=== PATIENT | female | born 1965 | race Caucasian/White ===

== ENCOUNTER 2022-09-17 08:45 | Emergency (ER) | payer OTHER, SELFPAY ==
--- NOTE | ~2022-09-17 | XR_ITS ---
EXAMINATION: XR chest 2V DATE: 09/17/2022 09:46 INDICATION: 2 days of cough and wheezing TECHNIQUE: PA and lateral views of the chest were obtained. COMPARISON: None FINDINGS: Mild bilateral perihilar bronchial wall thickening. No focal airspace opacities, pulmonary edema, ple ural effusion or pneumothorax. The cardiomediastinal silhouette is normal. Visualized bones and soft tissues are unremarkable. IMPRESSION: 1. Mild bilateral perihilar bronchial wall thickening without focal airspace opacities which could be seen with bronchitis or reactive airway disease/asthma. Reviewed, dictated and finalized at location A. LAINTS COORDINATOR IMPRESSION: 1. Mild bilateral perihilar bronchial wall thickening without focal airspace op acities which could be seen with bronchitis or reactive airway disease/asthma.
[2022-09-17 08:56] VITALS: BP 173/96; PULSE 100; RESP 16; TEMP 36.8; O2SAT 98
--- NOTE | 2022-09-17 09:29 | ED.URI ---
HPI - URI/Sore Throat General Chief Complaint: Upper Respiratory Infection Stated Complaint: Bodyaches/Cough Time Seen by Provider: 09/17/22 09:29 Source: patient, RN notes reviewed and old records reviewed Mode of arrival: ambulatory Limitations: no limitations History of Present Illness HPI Narrative: 57-year-old female presents to the [facility] with complaints of body aches, cough, sinus congestion since yesterday. Has taken a couple of doses of Mucinex. Has a history of hypertension, did not take her medication today Patient is a smoker Onset (ago): day(s) (1) Related Data Home Medications Medication Instructions Recorded Confirmed lisinopril 20 mg tablet 20 mg PO DAILY 09/17/22 09/17/22 Allergies Allergy/AdvReac Type Severity Reaction Status Date / Time amoxicillin Allergy Intermediate Rash Verified 09/17/22 09:42 Penicillins Allergy Intermediate Rash Verified 09/17/22 09:42 Review of Systems Review of Systems: All systems reviewed & are unremarkable except as noted in HPI and below Constitutional: Constitutional: Reports as per HPI, Reports body ache(s), Reports fatigue and Denies fever(s) Eyes: Eyes: Reports no additional eye complaints ENT: Reports as per HPI and Reports nasal congestion Cardiovascular: Cardiovascular: Reports no additional cardiovascular complaints, Denies chest pain and Denies dyspnea Respiratory: Respiratory: Reports as per HPI, Denies chest congestion, Reports cough, Denies dyspnea and Reports wheezing Gastrointestinal: Gastrointestinal: Reports no additional gastrointestinal complaints, Denies abdominal pain, Denies nausea and Denies vomiting Musculoskeletal: Musculoskeletal: Reports no additional musculoskeletal complaints Integumentary/Breasts: Skin/Breast: Reports system reviewed and no additional complaints, except as docu Neurologic: Reports system reviewed and no additional complaints, except as documented Psychiatric: Psychiatric: Reports no additional psychiatric complaints Allergic/Immunologic: Allergic/Immunologic: Reports no additional allergic/immunologic complaints [facility] Past Medical History Medical History (Updated 09/17/22 @ 09:58 by Rosa Betancourt APRN) History of high blood pressure Surgical History Surgical History (Updated 09/17/22 @ 09:41 by Rosa Betancourt APRN) S/P lateral meniscal repair Social History Social History (Updated 09/17/22 @ 09:40 by Rosa Betancourt APRN) Smoking status: Current every day smoker Tobacco type: cigarettes Gender identity (if verbalized by the patient): Female Comments At the time of my signature, I reviewed and agree with the nursing past medical, surgical, social, and family history. There is no relevant family history pertinent to the patient complaint. Exam Const: General: cooperative, no acute distress, well developed, alert, awake, ill appearing acutely (Mild), uncomfortable, well groomed and well nourished Nutritional Appearance: well nourished Orientation/consciousness: patient oriented x3 Limitations: no limitations HENMT: Head: normal to inspection Ears: hearing grossly normal bilaterally and external ears normal Face/Nose/Sinus: Normal external nose present, Normal nares present, Abnormal mucous membranes and turbinates present boggy and erythematous, normal facial exam and face symmetric Face and sinus: normal facial exam Mouth: Yes Normal oral and palatal mucosa present, Yes lip normal and Yes moist mucous membranes Throat: posterior oropharynx normal, uvula midline and postnasal drainage Eyes: General: appearance normal, both eyes and all related structures Alignment and Position: alignment normal Periorbital: periorbital findings normal Conjunctivae: conjunctivae normal Pupils: Equal, round and reactive pupils present EOM: EOMs intact bilaterally Neck: Neck: normal visual inspection, full ROM, no lymphadenopathy and no meningeal signs Chest: Chest palpation & inspection: normal i
== END 2022-09-17 10:06 | disposition home or self-care (01) ==
PROVIDERS: Emergency Provider Nurse Practitioner; PCP Physician Assistant Medical
DX: J40 Bronchitis, not specified as acute or chronic (principal); Z20.822 Contact with and (suspected) exposure to COVID-19; F17.210 Nicotine dependence, cigarettes, uncomplicated; I10 Essential (primary) hypertension
CPT/HCPCS: 71046; 87426; 87804; 99203; C9803; G0463

== ENCOUNTER 2025-08-07 09:56 | Observation (INO) | payer OTHER, SELFPAY ==
[2025-08-07] VITALS (46 sets, daily range): BP systolic 92–121; BP diastolic 64–78; PULSE 67–100; RESP 12–26; TEMP 36.8; O2SAT 94–100; BMI 21.2
--- NOTE | ~2025-08-07 | MR_ITS ---
EXAMINATION: MR brain/brain stem wo con DATE: 08/08/2025 12:17 INDICATION: Seizure. TECHNIQUE: Magnetic resonance imaging (MRI) of the brain and brainstem was performed without intravenous contrast. COMPARISON: Head CT 08/07/2025 FINDINGS: There is chronic encephalomalacia involving the left insula, left basal ganglia, and left frontal lobe deep white matter. There is chronic hematoma involving the left basal ganglia and left insula characterized by increased T1- and T2-weighted signal intensity. There are scattered areas of low attenuation in the cerebral white matter and mira, which is within normal limits for the patient's age. There is no acute ischemic infarct or abnormal mass lesion. There is ex vacuo dilatation of left lateral ventricle. There is mild mucosal thickening in the paranasal sinuses. The orbits are normal. There is a trace left mastoid effusion. IMPRESSION: 1. Chronic encephalomalacia involving the left insula, left basal ganglia, and left frontal lobe deep white matter. Chronic hematoma involving the left basal ganglia and left insula. Reviewed, dictated and finalized at location E.
--- NOTE | ~2025-08-07 | XR_ITS ---
EXAM/PROCEDURE: XR barium swallow modified HISTORY: cvA Fluoroscopy time: 1 minute DAP: 0.62 [place] per square centimeter Number of images: 1 COMPARISON: None available. TECHNIQUE: Modified barium swallow FINDINGS: No aspiration observed. IMPRESSION: No aspiration observed. See also speech therapist's notes for complete details. Reviewed, dictated and finalized at location A. METAL CAR OPERATOR
--- NOTE | ~2025-08-07 | XR_ITS ---
Examination: XR chest 1V Clinical History: Seizure Comparison: 09/17/2022 Technique: Portable AP Findings: Heart size normal. Increased suprahilar markings bilaterally. No focal airspace disease. No acute bony abnormality. IMPRESSION: 1. Recommend CT chest with contrast to exclude perihilar abnormality. 2. No acute abnormality. Reviewed, dictated and finalized at location R. E SETTER
--- NOTE | ~2025-08-07 | CT_ITS ---
EXAMINATION: CT diagnostic chest wo con, 08/07/2025 14:00 PIPE CHANGER HISTORY: perihilar abnormality COMPARISON: No comparisons available. TECHNIQUE: CT scan of the chest was performed without IV contrast. One or more of the following dose reduction techniques were used: automated exposure control, adjustment of the mA and/or kV according to patient size, use of iterative reconstruction technique. FINDINGS: No significant coronary calcification is present ([id number]) LUNGS: No tracheomalacia. No bronchiectasis. Minimal emphysematous changes. Minimal pulmonary fibrotic changes. No honeycombing or areas of bullous formation. No significant apical pleural scarring. There are bibasilar areas of the tibia atelectasis. HEART AND PERICARDIUM: Within normal limits. AORTA: Normal caliber aorta. ADENOPATHY/MEDIASTINUM: None. LIMITED VIEWS OF THE ABDOMEN: Within normal limits. OSSEOUS STRUCTURES: No acute osseous abnormality.No suspicious lesions. OVERLYING SOFT TISSUES: Unremarkable. THYROID: The thyroid is unremarkable. IMPRESSION: Unremarkable exam. There is no hilar mass identified. Reviewed, dictated and finalized at location P. CHANGER
--- NOTE | ~2025-08-07 | US_ITS ---
Ultrasound venous duplex upper extremity, left arm CLINICAL HISTORY: Rule out deep vein thrombosis . Comparison: None. TECHNIQUE: Grayscale, color, duplex/spectral Doppler sonography. FINDINGS: Left upper extremity internal jugular, subclavian, axillary, brachial, basilic, cephalic veins compressible (where possible) and color Doppler patent with normal phasic flow. No internal echoes. IMPRESSION: 1. No left upper extremity DVT. Reviewed, dictated and finalized at location R. H ENGINEER
--- NOTE | ~2025-08-07 | CT_ITS ---
CT HEAD NON-CONTRAST Clinical History: seizure, hemorrhagic stroke 07/10 Comparison: None Technique: Unenhanced axial images skull base to vertex Coronal, sagittal reformats CT images acquired with automatic exposure control for dose reduction DLP: 605 mGy-cm Findings: Prominent chronic infarct left centrum semiovale and zhu radiata. Mild white matter changes, typically chronic microvascular ischemic disease Sulci, ventricles: Unremarkable. No intracerebral hemorrhage. No evidence acute territorial infarct. No mass effect, midline shift. Bony calvarium intact. Visualized paranasal sinuses: Clear. Mastoid air cells: Clear. IMPRESSION: 1. No acute intracranial findings. Reviewed, dictated and finalized at location R. ON FACING MACHINE OPERATOR
--- NOTE | 2025-08-07 10:19 | ECG_ITS ---
Test Date: 2025-08-07 10:38:39 Measurements Intervals [place] Rate: 88 P: 50 PA: 142 QRS: 50 QRSD: 84 T: 48 QT: 339 QTc: 410 Interpretive Statements SINUS RHYTHM No previous ECG available for comparison Electronically Signed On 08-07-2025 10:56:03 [employer] by Asa Hernandez D.O
--- NOTE | 2025-08-07 10:19 | ED.SEIZURE ---
HPI - Seizure General Chief Complaint: Seizure Stated Complaint: seizure Time Seen by Provider: 08/07/25 10:19 Source: patient History of Present Illness HPI Narrative: 60 years old white female came from [facility] with seizure-like activity. History of hemorrhagic stroke 2 weeks ago, left upper extremity deep vein thrombosis. Patient denies any fever, chills, nausea, vomiting, diarrhea, constipation, chest pain or shortness of breath. Related Data Home Medications ?Medication ?Instructions ?Recorded ?Confirmed ?Last Taken ?Type lisinopril 20 mg tablet 20 mg PO DAILY 09/17/22 07/26/25 Unknown History amlodipine 10 mg tablet 10 mg PO DAILY 07/26/25 07/26/25 Unknown History armodafinil 150 mg tablet 150 mg PO DAILY 07/26/25 07/26/25 Unknown History doxazosin 1 mg tablet (Cardura) 0.5 mg PO HS 07/26/25 07/26/25 Unknown History folic acid 1 mg tablet 1 mg PO DAILY 07/26/25 07/26/25 Unknown History hydralazine 100 mg tablet 100 mg PO Q8H 07/26/25 07/26/25 Unknown History metoprolol tartrate 100 mg tablet 100 mg PO BID 07/26/25 07/26/25 Unknown History nicotine 14 mg/24 hr daily 1 patch transdermal DAILY 07/26/25 07/26/25 Unknown History transdermal patch (Nicoderm CQ) nitrofurantoin 100 mg capsule 100 mg PO BID 07/26/25 07/26/25 Unknown History tamsulosin 0.4 mg capsule (Flomax) 0.4 mg PO DAILY 07/26/25 07/26/25 Unknown History Allergies Allergy/AdvReac Type Severity Reaction Status Date / Time amoxicillin Allergy Intermediate Rash Verified 07/26/25 20:14 Penicillins Allergy Intermediate Rash Verified 07/26/25 20:14 Review of Systems Review of Systems: All systems reviewed & are unremarkable except as noted in HPI and below PMFSH Past Medical History Medical History Smoker History of high blood pressure Surgical History Surgical History S/P lateral meniscal repair Social History Social History Smoking status: Current every day smoker Tobacco type: cigarettes Additional smoking assessment comments: been smoking since the age of 11 Lack of Transportation: No Lack of Food: Never True Current Housing: I Have Housing Concerned About Future Housing: No Difficulty Paying Gas/Electric Bills: No Difficulty Paying for Meds: No Currently Unemployed: No Education: High School Diploma/GED Difficulty w/ Childcare or Family Care: No Gender identity (if verbalized by the patient): Female Spiritual care concerns: No Exam Narrative: General appearance: Well-developed, well-nourished Skin: Normal color Head: Normocephalic, nontraumatic Eyes: Clear conjunctiva ENT: Oropharynx normal, ears normal, nose normal Neck: Supple, nontender Chest and respiratory: Airway patent, no respiratory distress, no accessory muscle use Heart: Regular rate/rhythm Abdomen: Soft, nontender, no organomegaly, quiet bowel sounds Vascular: Normal peripheral pulses, normal capillary refill. Musculoskeletal: Normal range of motion, nontender back Neurologic: Alert and oriented to her name and the name of the present only, right hemiplegia Course Vital Signs Vital signs: Vital Signs Pulse Rate 96 08/07/25 09:54 Respiratory Rate 16 08/07/25 09:54 Blood Pressure 109/70 08/07/25 09:54 Pulse Oximetry 99 08/07/25 09:54 Oxygen Delivery Room Air 08/07/25 09:54 Pulse Rate 94 08/07/25 13:16 Respiratory Rate 20 08/07/25 13:16 Blood Pressure 104/65 08/07/25 13:16 Pulse Oximetry 97 08/07/25 13:16 Oxygen Delivery Room Air 08/07/25 09:54 MDM - Seizure MDM Narrative Medical decision making narrative: Patient presents with seizure-like activity Vital signs are stable Physical examination showing is the patient awake, alert oriented to her name and the name of the president only otherwise confused, right hemiplegia. Differential diagnosis: Seizure, stroke, electrolyte imbalance, dehydration, urinary tract infection Blood workup today includes CBC, CMP, troponin and coags showed insignificant abnormality Urinalysis positive for infection Diagnosis seizure-like activity, urinary tract infection Admit to hospitalist, discussed with Dr. Bonilla Differential Diagnosis Differential diagnosis: Likely other (As above) Medical Records Attestation: I reviewed the patient's medical records. Lab Data Attestation: I reviewed the patient's lab results. 08/07/25 10:55 08/07/25 10:55 Labs: Lab Results 08/07/25 Range/Units 10:55 WBC 6.5 (4.5-10.0) K/mm3 RBC 3.74 L (4.2-5.4) M/mm3 Hgb 11.8 L (12.0-15.0) g/dL Hct 35.5 L (37.0-47.0) % MCV 94.9 (80-100) fl MCH 31.6 (26-34) pg MCHC 33.2 (32-36) g/dl RDW 12.8 (11.5-14.5) % Plt Count 184 (150-375) k/mm3 MPV 9.3 (7.4-10.4) fl Immature Gran % (Auto) 0.3 (0-0.5) % Neut % (Auto) 61.8 (45.5-73.1) % Lymph % (Auto) 22.2 (18.3-44.2) % Terry % (Auto) 10.5 H (2.6-8.5) % Eos % (Auto) 4.6 H (0-4.4) % Baso % (Auto) 0.6 (0.2-1.2) % Lymph # (Auto) 1.44 (0.9-3.2) K/mm3 Terry # (Auto) 0.7 H (0.1-0.6) K/mm3 Eos # (Auto) 0.3 (0-0.3) K/mm3 Baso # (Auto) 0.0 (0.0-0.1) K/mm3 Abs Immat Gran (auto) 0.02 (0.00-0.031) K/mm3 Absolute Neuts (auto) 4.0 (1.3-6.7) K/mm3 Absolute Nucleated RBC 0.000 (0.0-0.012) K/mm3 Nucleated RBC % 0.0 (0.0-0.2) % PT 13.2 (11.1-14.7) Seconds INR 1.0 APTT 27.7 (22.3-36.8) Seconds Sodium 134 L (137-145) mmol/L Potassium 3.9 (3.4-5.0) mmol/L Chloride 102 (98-107) mmol/L Carbon Dioxide 27 (22-30) mmol/L Anion Gap 5 (4-12) mmol/L BUN 11 (7-17) mg/dL Creatinine 0.48 L (0.7-1.0) mg/dL Estim Creat Clear Calc 94 ml/min Estimated GFR > 60 (59 - ) Glucose 78 (65-110) mg/dL Calcium 8.6 (8.4-10.2) mg/dL Total Bilirubin 0.2 (0.2-1.3) mg/dL AST 33 (14-36) U/L ALT 35 (6-35) U/L Alkaline Phosphatase 123 (38-126) U/L Total Creatine Kinase < 20 L (30-135) U/L Total Protein 5.9 L (6.3-8.2) g/dL Albumin 3.3 L (3.5-5.1) g/dL Urine Color Yellow (Yellow) Urine Appearance Turbid H (Clear) Urine pH 8.0 (5.0-9.0) Ur Specific [place] 1.012 (1.001-1.035) Urine Protein Negative (Negative) mg/dL Urine Glucose (UA) Negative (Negative) mg/dL Urine Ketones Negative (Negative) mg/dL Ur Blood (Man) Negative (Negative) Urine Nitrate Positive H (Negative) Urine Bilirubin Negative (Negative) Urine Urobilinogen 0.2 (<2.0) mg/dL Add Ur Microanalysis Reviewed Leukocyte Esterase Rfl 2+ H (Negative) SAMANTHA/UL Urine RBC 11-20 H (0-2) /hpf Urine WBC 11-20 H (0-3) /hpf Ur Squamous Epith Cells None seen (Few) /hpf Amorphous Sediment Moderate H (None) Urine Bacteria 3+ H /hpf Urine Casts 0-2 Imaging Data Radiologist's impression: Impressions Head CT 08/07/25 10:29 IMPRESSION: 1. No acute intracranial findings. Chest X-Ray 08/07/25 10:33 IMPRESSION: 1. Recommend CT chest with contrast to exclude perihilar abnormality. 2. No acute abnormality. Venous Doppler Study 08/07/25 12:18 IMPRESSION: 1. No left upper extremity DVT. ECG Data EKG #1: Attestation: I personally reviewed and interpreted this ECG as follows: ECG completion date: 08/07/25 Interpretation: Normal sinus rhythm at 88 beats per minute, no previous EKG available for comparison Critical Care Time Critical Care Time Critical Care Time: No Discharge Plan Discharge Clinical Impression: Seizure, Urinary tract infection Patient Disposition: Still a Patient Condition: Improved Additional Instructions: Admit to hospitalist Patient Language: Croatian Prescriptions: No Action lisinopril 20 mg tablet 20 mg PO DAILY prednisone 20 mg tablet See Rx Instructions .ROUTE .COMPLEX Qty: 9 0RF Rx Instructions: Take 40 mg daily for 3 days, 20 mg daily for 3 days doxycycline monohydrate 100 mg capsule 100 mg PO BID Qty: 14 0RF albuterol sulfate 90 mcg/actuation HFA aerosol inhaler 2 puff inhalation QID PRN (Reason: shortness of breath or wheezing) Qty: 6.7 0RF (DME) Space Chamber Spacer See Rx Instructions .ROUTE .MEDSUPPLY Qty: 1 0RF Rx Instructions: As directed nicotine [Nicoderm CQ] 14 mg/24 hr patch 24 hour 1 patch transdermal DAILY Patient Comments: pt has one on already tamsulosin [Flomax] 0.4 mg capsule 0.4 mg PO DAILY amlodipine 10 mg tablet 10 mg PO DAILY doxazosin [Cardura] 1 mg tablet 0.5 mg PO HS hydralazine 100 mg tablet 100 mg PO Q8H metoprolol tartrate 100 mg tablet 100 mg PO BID armodafinil 150 mg tablet 150 mg PO DAILY folic acid 1 mg tablet 1 mg PO DAILY nitrofurantoin 100 mg capsule 100 mg PO BID Rx Instructions: must administer with a meal/food Follow-up/Referrals: PHYSICIAN NOT ON STAFF,NONSTAFF [Non-Staff] Quality Stroke Scale Stroke Scale 1: Stroke scale date:: 08/07/25 1a Level of consciousness: alert-0 1b Level of consciousness questions: answers one correctly-1 1c Level of consciousness commands: obeys both correctly-0 2 Best gaze: normal-0 3 Visual: no visual loss-0 4 Facial palsy: normal-0 5a Motor: left arm: no drift-0 5b Motor: right arm: drift-1 6a Motor: left leg: no drift-0 6b Motor: right leg: drift-1 7 Limb ataxia: present in one limb-1 8 Sensory: normal-0 9 Best language: no aphasia-0 10 Dysarthria: slurs some words-1 11 Extinction and inattention: no abnormality-0 Level:: 5
[2025-08-07] MEDS: levETIRAcetam 1000MG/NACL100ML 1,000 MG/100 ML BAG 400 MG IVPB (10:40)
[2025-08-07 11:05] LABS: Hematocrit 35.5 % (37.0-47.0); Hemoglobin 11.8 g/dL (12.0-15.0); Immature Granulocyte Percent A 0.3 % (0-0.5); Lymphocytes Absolute Auto 1.44 K/mm3 (0.9-3.2); Mean Corpuscular HGB Conc 33.2 g/dl (32-36); Mean Corpuscular Hemoglobin 31.6 pg (26-34); Mean Corpuscular Volume 94.9 fl (80-100); Nucleated Red Blood Cells Absolute Auto 0.000 K/mm3 (0.0-0.012); Nucleated Red Blood Cells Perc 0.0 % (0.0-0.2); Platelet Count Result 184 k/mm3 (150-375); Red Blood Count 3.74 M/mm3 (4.2-5.4); White Blood Count 6.5 K/mm3 (4.5-10.0)
[2025-08-07 11:15] LABS: INR 1.0; Prothrombin Time 13.2 Seconds (11.1-14.7)
[2025-08-07 11:16] LABS: Partial Thromboplastin Time 27.7 Seconds (22.3-36.8)
[2025-08-07 11:24] LABS: Alanine Aminotransferase 35 U/L (6-35); Albumin Level 3.3 g/dL (3.5-5.1); Alkaline Phosphatase 123 U/L (38-126); Anion Gap 5 mmol/L (4-12); Aspartate Amino Transferase 33 U/L (14-36); Bilirubin,Total 0.2 mg/dL (0.2-1.3); Blood Urea Nitrogen 11 mg/dL (7-17); Calcium 8.6 mg/dL (8.4-10.2); Carbon Dioxide 27 mmol/L (22-30); Chloride 102 mmol/L (98-107); Creatine Kinase < 20 U/L (30-135); Estimated CRCL calculation 94 ml/min; Estimated Glomerular Filt Rate > 60; Glucose 78 mg/dL (65-110); Potassium 3.9 mmol/L (3.4-5.0); Sodium 134 mmol/L (137-145); Total Protein 5.9 g/dL (6.3-8.2)
[2025-08-07 11:27] LABS: Add Urine Microscopic? YES; Appearance Urine Turbid (Clear); Glucose Urine UA Negative (Negative); Leukocyte Esterase Ur 2+ LEU/UL (Negative); Need Manual Microscopic Reviewed; Nitrate Urine Positive (Negative); Non Pathogenic Casts 0-2; Specific Grav Ur 1.012 (1.001-1.035)
--- NOTE | 2025-08-07 12:00 | PC.NURSE ---
Pt more awake than on arrival to ed. c/o pain to left leg. No deformity noted. PMS intact.
--- NOTE | 2025-08-07 13:50 | P.HP_ITS ---
H&P: HPI History of Present Illness Date/Time: 08/07/25 13:50 Chief Complaint: Seizure Narrative: 60-year-old female past medical history of a hemorrhagic stroke 1 month ago, hypertension, presents to the hospital for seizure like activity at inpatient rehab. Per the patient the she does not have increased weakness or stroke-like symptoms. HPI given by family at bedside. Patient had extremely prolonged hosp ital stay due to her hemorrhagic stroke. They state that they believe she was not in Keppra after her stroke. Per the he was at bedside when she started to shake, she did not respond to verbal or tactile stimuli so pressed the call light. A rapid response was called. Per the she was in the bed the whole time and did not fall or hit her head. Patient has had issues with short-term memory since the stroke per family. Lab work shows hemoglobin 11.8, sodium of 134, creatinine of 0.48, glucose of 144, UA is turbid with positive nitrates 2+ leukocyte esterase 11-20 wbc's 3+ ba cteria. Venous Doppler of left upper extremity negative for DVT. Chest x-ray shows no acute findings however Recommend CT chest with contrast to exclude perihilar abnormality. Patient being admitted for seizure workup. CT brain and chest pending. Patient given Keppra load in the emergency room and started on Rocephin. Review of Systems Review of Systems: 12 systems were reviewed and are negativ e except for as per HPI. [facility] Past Medical History Medical History Smoker History of high blood pressure Surgical History Surgical History S/P lateral meniscal repair Social History Social History Smoking packs per day: 1 Smoking cigarettes per day: 20.0 Years smoked: 34 Smoking pack-years: 34.00 Smoking status: Current every day smoker Tobacco type: cigarettes Additional smoking assessment comments: been smoking since the age of 11 Alcohol intake: current Drinks per week: 15 Substance use: never Lack of Transportation: No Lack of Food: Never True Current Housing: I Have Housing Concerned About Future Housing: No Difficulty Paying Gas/Electric Bills: No Difficulty Paying for Meds: No Currently Unemployed: No Education: High School Diploma/GED Difficulty w/ Childcare or Family Care: No Gender identity (if verbalized by the patient): Female Spiritual care concerns: Yes ([place]) Meds Home Medications and Allergies Home Medications ?Medication ?Instructions ?Recorded ?Confirmed ?Type amlodipine 10 mg tablet 10 mg PO DAILY 07/26/2507/24 History Held on 08/07/25. Instructions: .Provider Order folic acid 1 mg tablet 1 mg PO DAILY 07/26/2508/07 History metoprolol tartrate 100 mg tablet 50 mg PO BID 5 08/07/25 History nicotine 14 mg/24 hr daily 1 patch transdermal DAILY 1 09/25/24 08/07/25 History transdermal patch (Nicoderm CQ) tamsulosin 0.4 mg capsule (Flomax) 0.4 mg PO DAILY 12/1508/07/25 History Bacillus coagulans 250 million 1 tablet PO QHS 5 08/07/25 History cell chewable tablet (Digestive Advantage Immune) acetaminophen 325 mg/10.15 mL oral 325 mg PO Q6H PRN p ain, mild 08/07/25 08/07/25 History solution bethanechol chloride 10 mg tablet 10 mg PO ACHS 08/07/25 History docusate sodium 100 mg capsule 100 mg PO BID 08/07/25 08/07/25 History folic acid 1 mg tablet 1 mg PO DAILY 08/07/2508/07 History gabapentin 100 mg capsule 100 mg PO TID 08/07/2508/07 History hydrocortisone 1 % topical cream 1 applic topical BID 08/07/25 08/07/25 History (Ala-N[place]um) melatonin 3 mg capsule 3 mg PO HS 08/07/25 08/07/25 History midodrine 5 mg tablet 5 mg PO TID 08/07/25 History modafinil 200 mg tablet 200 mg PO QAM 08/07/2508/07 History psyllium husk 0.52 gram capsule 1.04 g PO HS 08/07/25 08/07/25 History (Daily Fiber) Allergies Allergy/AdvReac Type Severity Reaction Status Date / Time amoxicillin Allergy Intermediate Rash Verified 08/07/25 16:27 Penicillins Allergy Intermediate Rash Verified 08/07/25 16:27 Vital Signs Vital Signs - 24 hr 08/07/25 09:54 08/07/25 10:01 08/07/25 10:02 Pulse Rate 96 99 96 Respiratory Rate 16 17 18 Blood Pressure 109/70 117/67 Pulse Oximetry 99 98 99 Oxygen Delivery Room Air 08/07/25 10:03 08/07/25 10:15 08/07/25 10:16 Pulse Rate 97 98 99 Respiratory Rate 19 16 19 Blood Pressure 109/70 110/69 Pulse Oximetry 98 Oxygen Delivery 08/07/25 10:32 08/07/25 10:45 08/07/25 11:00 Pulse Rate 90 94 96 Respiratory Rate 21 H 19 23 H Blood Pressure Pulse Oximetry 96 Oxygen Delivery 08/07/25 11:15 08/07/25 11:30 08/07/25 11:43 Pulse Rate 90 91 92 Respiratory Rate 19 24 H 14 Blood Pressure 121/64 Pulse Oximetry 97 98 99 Oxygen Delivery 08/07/25 11:45 08/07/25 11:46 08/07/25 12:00 Pulse Rate 97 94 93 Respiratory Rate 22 H 14 17 Blood Pressure 110/66 105/65 Pulse Oximetry 95 97 95 Oxygen Delivery 08/07/25 12:01 08/07/25 12:15 08/07/25 12:16 Pulse Rate 93 90 97 Respiratory Rate 19 18 18 Blood Pressure 113/67 Pulse Oximetry 97 97 98 Oxygen Delivery 08/07/25 12:30 08/07/25 12:31 08/07/25 12:32 Pulse Rate 95 94 96 Respiratory Rate 15 14 18 Blood Pressure 105/72 Pulse Oximetry 94 97 97 Oxygen Delivery 08/07/25 12:45 08/07/25 12:47 08/07/25 13:00 Pulse Rate 100 93 95 Respiratory Rate 20 12 18 Blood Pressure 92/66 L Pulse Oximetry 95 97 95 Oxygen Delivery 08/07/25 13:01 08/07/25 13:11 08/07/25 13:15 Pulse Rate 96 97 94 Respiratory Rate 17 18 18 Blood Pressure 103/64 Pulse Oximetry 96 97 96 Oxygen Delivery 08/07/25 13:16 Pulse Rate 94 Respiratory Rate 20 Blood Pressure 104/65 Pulse Oximetry 97 Oxygen Delivery Exam Narrative: General: well appearing, appears stated age. Expressive aphasia. HEENT: normocephalic, atraumatic. Mucous membranes moist. EOMI, PERRLA, bilateral sclera anicteric, no conjunctival injection. Neck supple without JVD, lymphadenopathy, or bruit. Respiratory: clear bilaterally. No rales/rhonic/wheezes. Cardiovascular: Regular rate and rhythm, normal S1-S2. No murmurs, rubs, or clicks. PMI is nondisplaced, capillary refill less than 3 second. Abdomen: Soft, round, no pulsatile masses, nondistended and nontender. No rebound, no guarding. Bowel sounds present to all four quadrants. No high pitch or tinkling sounds, resonant to percussion. Extremities: No cyanosis, clubbing, or edema present. Pulses are palpable 2/2. Right upper extremity with gross movement of hand, partial resistant against gravity, left upper extremity strong, right lower extremity with drift, left lower extremity strong Neuro: Alert and orientated x 4. PERRLA. Cranial nerves 2-12 intact without focal deficit. Skin: Warm, dry, and intact, without rash, erythema, or lesion. Psych: pleasant, cooperative, normal speech, normal affect, no hallucinations, no dysarthia H&P: Results Labs Labs: Short CBC 08/07/25 Range/Units 10:55 WBC 6.5 (4.5-10.0) K/mm3 Hgb 11.8 L (12.0-15.0) g/dL Hct 35.5 L (37.0-47.0) % Plt Count 184 (150-375) k/mm3 BMP 08/07/25 10:55 Sodium 134 L Potassium 3.9 Chloride 102 Carbon Dioxide 27 BUN 11 Creatinine 0.48 L Glucose 78 Calcium 8.6 Cardiac Enzymes 08/07/25 Range/Units 10:55 Total Creatine Kinase < 20 L (30-135) U/L Liver Function 08/07/25 Range/Units 10:55 Total Bilirubin 0.2 (0.2-1.3) mg/dL AST 33 (14-36) U/L ALT 35 (6-35) U/L Alkaline Phosphatase 123 (38-126) U/L Albumin 3.3 L (3.5-5.1) g/dL Urine 08/07/25 Range/Units 10:55 Urine Color Yellow (Yellow) Urine Appearance Turbid H (Clear) Urine pH 8.0 (5.0-9.0) Ur Specific [place] 1.012 (1.001-1.035) Urine Protein Negative (Negative) mg/dL Urine Glucose (UA) Negative (Negative) mg/dL Assessment and Plan Assessment and plan (1) Seizure: Code(s): R56.9 - Unspecified convulsions Status: Acute Assessment and Plan: Patient did have a hemorrhagic stroke 3 weeks ago and is currently in rehab Neurology consulted Saul valdovinos in ED Saul [place] CT head pleuritic stroke resolved, Prominent chronic infarct left centrum semiovale and zhu radiata Valium p.r.n. for seizure activity Seizure precautions (2) UTI (urinary tract infection): Code(s): N39.0 - Urinary tract infection, site not specified Status: Acute Assessment and Plan: IV Rocephin Culture and sensitivity pending IVF (3) Urinary retention: Code(s): R33.9 - Retention of urine, unspecified Status: Acute Assessment and Plan: Patient has not been able to void since her stroke has had several Almaguer's Will start bladder training q.6 bladder scan and straight cath over 450 Flomax (4) ICH (intracerebral hemorrhage): Code(s): I61.9 - Nontraumatic intracerebral hemorrhage, unspecified Status: Acute Assessment and Plan: [address] had hemorrhagic stroke resolved PT OT evaluate and treat Speech therapy (5) HTN (hypertension): Code(s): I10 - Essential (primary) hypertension Status: Acute Assessment and Plan: Patient has been taken off of her hypertensive medications since her stroke and now is on midodrine Continue midodrine (6) DVT of left axillary vein, chronic: Code(s): I82.A22 - Chronic embolism and thrombosis of left axillary vein Status: Acute Assessment and Plan: 3 weeks ago Venous Doppler ultrasound negative for DVT (7) Chest x-ray abnormality: Code(s): R93.89 - Abnormal findings on diagnostic imaging of other specified body structures Status: Acute Assessment and Plan: perihilar abnormality Chest CT with no perihilar abnormality Quality VTE Prophylaxis VTE prophylaxis: mechanical ordered and pharmacologic ordered Hospitalist MIPS Advance Care Plan I have confirmed that the patient's Advanced Care Plan is present, code status is documented, or surrogate decision maker is listed in patient medical record.: Yes Medication Reconciliation I have utilized all available resources to obtain, update and review the patients current medications (includes all prescriptions, OTC, herbals, cannabis, and nutritional supplements).: Yes
[2025-08-07] MEDS: cefTRIAXone 1 GM in SODIUM CHLORIDE 0.9% IV 50 ML 100 ML IVPB (13:51)
--- NOTE | 2025-08-07 15:06 | WPCEDHO ---
ED Hand Off Checklist All vitals saved:y IV Site documented:y All med administrations documented:y Triage Note Triage Note To ed via ems from [facility] 08/07/25 09:54 with seizure. Pt is at rehab for a CVA from 07/10. reported to ems that pt leaned her head back and then had shaking to head and arms. Right sided paralyzed from stroke. No previous hx of seizure. Is supposed to have follow up with neurology in [place]. Pt is aphasic. Allergies amoxicillin Allergy (Intermediate, Verified 07/26/25 20:14) Rash Penicillins Allergy (Intermediate, Verified 07/26/25 20:14) Rash Administered/Completed Medications Discontinued Medications Levetiracetam (Keppra Iv) 1,000 mg in 100 mls @ 400 mls/hr IVPB ONCE STA Stop: 08/07/25 10:33 Last Infusion: 08/07/25 11:20 Dose: Infused Documented By: Admin: 08/07/25 10:40 Dose: 400 mls/hr Documented By: LEV Ceftriaxone Sodium 1 gm/ (Sodium Chloride) 50 mls @ 100 mls/hr IVPB ONCE STA Stop: 08/07/25 13:52 Last Infusion: 08/07/25 14:20 Dose: Infused Documented By: Admin: 08/07/25 13:51 Dose: 100 mls/hr Documented By: LEV Notes 08/07/25 12:00 (created 08/07/25 12:34) Nurse Note by Anusha Hernandez Pt more awake than on arrival to ed. c/o pain to left leg. No deformity noted. PMS intact. Initialized on 08/07/25 12:34 - END OF NOTE Interventions/Assessments IV / Saline Lock, Insert Start: 08/07/25 09:50 Freq: Status: Active Protocol: Document 08/07/25 10:07 LEV (Rec: 08/07/25 10:08 LEV [id number]) IV Assessment Peripheral Access Left Wrist IV Catheter Access Initiated Before Arrival IV Insertion Date 08/07/25 IV Insertion Time 10:08 Catheter Gauge 20 IV Site Assessment WNL IV Care and WNL Maintenance PA: Neurological Assessment Start: 08/07/25 09:50 Freq: Status: Active Protocol: Document 08/07/25 11:51 LEV (Rec: 08/07/25 11:51 LEV [id number]) Neurological Assessment Level of Awake Consciousness Arousable to Verbal Orientation Oriented to Person,Oriented to Place Neurological Dysphasia,Weakness, Focal Symptoms Hallucination Type None Behavior Flat Affect Memory Description Unable to Assess Ability to Maintain Unable to Assess Balance PA: Respiratory Assessment Start: 08/07/25 09:50 Freq: Status: Active Protocol: Document 08/07/25 11:38 LEV (Rec: 08/07/25 11:38 LEV [id number]) Respiratory Assessment Symptoms None Effort Normal Pattern Regular Depth Normal Chest Expansion Symmetrical Adult Capillary Normal/Less than 2 Seconds Refill Throughout Phase Inspiratory & Expiratory Lung Sounds Clear Last Vital Signs Pulse Rate 97 08/07/25 14:46 Respiratory Rate 15 08/07/25 14:46 Pulse Oximetry 97 08/07/25 14:46 Blood Pressure 104/67 08/07/25 14:46 Blood Pressure Mean 80 08/07/25 14:46 Blood Pressure Position Supine 08/07/25 09:54 Oxygen Delivery Room Air 08/07/25 09:54 Weight 61.9 kg 08/07/25 09:54 Last Result - Abnormals Only RBC 3.74 M/mm3 (4.2-5.4) L 08/07/25 10:55 Hgb 11.8 g/dL (12.0-15.0) L 08/07/25 10:55 Hct 35.5 % (37.0-47.0) L 08/07/25 10:55 [place] % (Auto) 10.5 % (2.6-8.5) H 08/07/25 10:55 Eos % (Auto) 4.6 % (0-4.4) H 08/07/25 10:55 [place] # (Auto) 0.7 K/mm3 (0.1-0.6) H 08/07/25 10:55 Sodium 134 mmol/L (137-145) L 08/07/25 10:55 Creatinine 0.48 mg/dL (0.7-1.0) L 08/07/25 10:55 Total Creatine Kinase < 20 U/L (30-135) L 08/07/25 10:55 Total Protein 5.9 g/dL (6.3-8.2) L 08/07/25 10:55 Albumin 3.3 g/dL (3.5-5.1) L 08/07/25 10:55 Urine Appearance Turbid (Clear) H 08/07/25 10:55 Urine Nitrate Positive (Negative) H 08/07/25 10:55 Leukocyte Esterase Rfl 2+ SAMANTHA/UL (Negative) H 08/07/25 10:55 Urine RBC 11-20 /hpf (0-2) H 08/07/25 10:55 Urine WBC 11-20 /hpf (0-3) H 08/07/25 10:55 Amorphous Sediment Moderate (None) H 08/07/25 10:55 Urine Bacteria 3+ /hpf H 08/07/25 10:55
[2025-08-07] MEDS: SODIUM CHLORIDE 0.9% IV 1,000 ML 100 ML IV CONT (16:07)
--- NOTE | 2025-08-07 16:26 | ADMGEN ---
This patient, Kerry Jimenez, was admitted to Medical Room 243-01. Patient/family oriented to hospital policies and general routines including ID bracelet, bed and alarms, visiting hours, pain management, procedures, bathroom and other care routines, personal items, smoking policy, room service/diet, and visiting hours. Information on how to activate the Rapid Response Team has been discussed. Patient/Family are encouraged to report perceived risks to care and to ask questions if they do not understand what they are told or what they should do.
[2025-08-07] MEDS: BETHANECHOL CHLORIDE 10 MG TABLET PO (21:38)
[2025-08-07] MEDS: MELATONIN 3 MG TABLET PO (21:38)
[2025-08-07] MEDS: SENNOSIDES 8.6 MG TABLET PO (21:39)
[2025-08-07] MEDS: METOPROLOL TARTRATE 50 MG TAB PO (21:39)
[2025-08-08] VITALS (10 sets, daily range): BP systolic 117–127; BP diastolic 64–82; PULSE 76–90; RESP 17–18; TEMP 36.4–36.8; O2SAT 98–100
[2025-08-08] MEDS: SODIUM CHLORIDE 0.9% IV 1,000 ML 100 ML IV CONT ×2 (02:07→16:20)
[2025-08-08 05:29] LABS: Hematocrit 35.4 % (37.0-47.0); Hemoglobin 11.9 g/dL (12.0-15.0); Immature Granulocyte Percent A 0.3 % (0-0.5); Lymphocytes Absolute Auto 1.42 K/mm3 (0.9-3.2); Mean Corpuscular HGB Conc 33.6 g/dl (32-36); Mean Corpuscular Hemoglobin 31.9 pg (26-34); Mean Corpuscular Volume 94.9 fl (80-100); Nucleated Red Blood Cells Absolute Auto 0.000 K/mm3 (0.0-0.012); Nucleated Red Blood Cells Perc 0.0 % (0.0-0.2); Platelet Count Result 184 k/mm3 (150-375); Red Blood Count 3.73 M/mm3 (4.2-5.4); White Blood Count 7.5 K/mm3 (4.5-10.0)
[2025-08-08 05:56] LABS: Anion Gap 5 mmol/L (4-12); Blood Urea Nitrogen 8 mg/dL (7-17); Calcium 8.6 mg/dL (8.4-10.2); Carbon Dioxide 24 mmol/L (22-30); Chloride 105 mmol/L (98-107); Estimated CRCL calculation 98 ml/min; Estimated Glomerular Filt Rate > 60; Glucose 94 mg/dL (65-110); Potassium 4.3 mmol/L (3.4-5.0); Sodium 134 mmol/L (137-145)
[2025-08-08] MEDS: BETHANECHOL CHLORIDE 10 MG TABLET PO ×4 (07:12→21:01)
[2025-08-08] MEDS: METOPROLOL TARTRATE 50 MG TAB PO ×2 (08:52→21:01)
[2025-08-08] MEDS: NICOTINE (*PBKC) 14 MG PATCH 1 PATCH TRANSDERM (08:52)
[2025-08-08] MEDS: GABAPENTIN 100 MG CAPSULE PO (08:56)
[2025-08-08] MEDS: FOLIC ACID 1 MG TABLET PO (08:56)
[2025-08-08] MEDS: MIDODRINE HCL 2.5 MG TABLET 5 MG PO (08:57)
[2025-08-08] MEDS: modafiniL (*CRX) 200 MG TABLET PO (08:58)
[2025-08-08] MEDS: LORATADINE 10 MG TABLET PO (08:58)
[2025-08-08] MEDS: TAMSULOSIN HCL 0.4 MG CAPSULE PO (08:58)
[2025-08-08] MEDS: HYDROCORTISONE 1% 30 GM CREAM 1 APPLIC TOPICAL ×2 (08:58→16:23)
--- NOTE | 2025-08-08 10:15 | P.PNIM_ITS ---
Progress Note: A&P Assessment and Plan (1) ICH (intracerebral hemorrhage): Code(s): I61.9 - Nontraumatic intracerebral hemorrhage, unspecified Status: Acute (2) Seizure: Code(s): R56.9 - Unspecified convulsions Status: Acute Plan Seizure -patient had intracranial hemorrhage 07/10/25 and now at [facility]. She has some deficiencies include right-sided deficit and dysarthria. Her stroke symptoms are improving however she had a seizure episode while at rehab -head CT with no acute finding, she had a recent head bleed, seizure from settled blood? Patient has not had any issues for several weeks. No sign of rebleed, no seizure history -will obtain EEG -will obtain brain MRI -awaiting Neurology consultation -IV fluids: NS at 100 cc/hour for now -loaded with Keppra, continue Keppra 500 mg q.12 hours for now until neurology assessment -p.r.n. diazepam for seizures Diffuse rash, drug rash? -recently started on gabapentin, will discontinue for now -continue hydrocortisone cream for rash -rash may be a drug rash. Location is mostly on the back also on her arms, spread throughout body. On extremities more proximal Urinary retention, UTI -awaiting urine culture. Urinalysis concern for bacteria -antibiotics: Continue Rocephin for now despite being afebrile and no leukocytosis. Retention symptom may be from infection -continue bladder scan q.6 hours and straight cath for greater than 300 cc -retention appears to be a post stroke development -with urinary retention she is at increased risk for UTI Chronic conditions -recent intracranial hemorrhage: Developed while at [place]. No anticoagulation for a month. Continue PT OT speech therapy -nicotine dependence: Nicotine patch -urinary retention: Continue straight catheterization, on Flomax? -bowel regimen: Senokot, MiraLax -essential hypertension: Metoprolol -allergies: Claritin -supplements: Folic acid -chronic left axillary DVT: No anticoagulation with the ICH -narcolepsy? modafinil -history of basal cell carcinoma status post plastic surgery Diet: Heart healthy DVT prophylaxis: SCDs, no chemoprophylaxis recent intracranial hemorrhage Code status: Full code Disposition: Back to rehab in next 1-2 days Social: updated bedside Time Spent With Patient Time: 40 minutes Subjective Date/time seen: 08/08/25 10:15 Interval history: Patient seen examined. She is well no new complaints. Patient has fever, chills nausea vomiting diarrhea. She has a diffuse rash throughout her body that is itchy. She states only new medications gabapentin over last week. Will discontinue gabapentin to see if helps with her rash. The meantime will have EEG and MRI ordered to follow-up on seizure. Will continue seizure precautions and awaiting Neurology consultation. Anticipate discharge back to rehab next couple days. updated bedside. Review of Systems Review of Systems: 10 point ROS complete, negative other th an what is specified in HPI. Exam Narrative: - GENERAL: Pleasant woman in No acute d istress. Well-nourished. - EYES: EOMI. Anicteric. - HENT: Moist mucous membranes. - LUNGS: Clear to auscultation bilateral ly, no wheezing, rhonchi, or rales. - CARDIOVASCULAR: Regular rate and rhyth m. - ABDOMEN: Soft, non-tender and non-dist ended. No palpable masses. - EXTREMITIES: No edema. Peripheral puls es 2+. Non-tender. - NEUROLOGIC: Improvement of right lowe r extremity strength, dysarthria present - PSYCHIATRIC: Awake, Alert and oriented x 3. Appropriate mood and affect. - SKIN: Rash present throughout body in cluding chest, back, lower extremities. Rash predominantly on back. Warm. Surgical scar from basal cell carcinoma of her nose - LYMPH: No cervical lymphadenopathy. Objective Data Vital Signs Vital Signs: Vital Signs - 24 hr 08/07/25 10:16 08/07/25 10:32 08/07/25 10:45 Temperature Pulse Rate 99 90 94 Respiratory Rate 19 21 H 19 Blood Pressure Pulse Oximetry 96 Oxygen Delivery Fraction of Inspired Oxygen 08/07/25 11:00 08/07/25 11:15 08/07/25 11:30 Temperature Pulse Rate 96 90 91 Respiratory Rate 23 H 19 24 H Blood Pressure Pulse Oximetry 97 98 Oxygen Delivery Fraction of Inspired Oxygen 08/07/25 11:43 08/07/25 11:45 08/07/25 11:46 Temperature Pulse Rate 92 97 94 Respiratory Rate 14 22 H 14 Blood Pressure 121/64 110/66 Pulse Oximetry 99 95 97 Oxygen Delivery Fraction of Inspired Oxygen 08/07/25 12:00 08/07/25 12:01 08/07/25 12:15 Temperature Pulse Rate 93 93 90 Respiratory Rate 17 19 18 Blood Pressure 105/65 113/67 Pulse Oximetry 95 97 97 Oxygen Delivery Fraction of Inspired Oxygen 08/07/25 12:16 08/07/25 12:30 08/07/25 12:31 Temperature Pulse Rate 97 95 94 Respiratory Rate 18 15 14 Blood Pressure 105/72 Pulse Oximetry 98 94 97 Oxygen Delivery Fraction of Inspired Oxygen 08/07/25 12:32 08/07/25 12:45 08/07/25 12:47 Temperature Pulse Rate 96 100 93 Respiratory Rate 18 20 12 Blood Pressure 92/66 L Pulse Oximetry 97 95 97 Oxygen Delivery Fraction of Inspired Oxygen 08/07/25 13:00 08/07/25 13:01 08/07/25 13:11 Temperature Pulse Rate 95 96 97 Respiratory Rate 18 17 18 Blood Pressure 103/64 Pulse Oximetry 95 96 97 Oxygen Delivery Fraction of Inspired Oxygen 08/07/25 13:15 08/07/25 13:16 08/07/25 13:17 Temperature Pulse Rate 94 94 93 Respiratory Rate 18 20 15 Blood Pressure 104/65 Pulse Oximetry 96 97 97 Oxygen Delivery Fraction of Inspired Oxygen 08/07/25 13:30 08/07/25 13:31 08/07/25 13:45 Temperature Pulse Rate 97 97 99 Respiratory Rate 13 14 26 H Blood Pressure 117/77 118/78 Pulse Oximetry 95 96 Oxygen Delivery Fraction of Inspired Oxygen 08/07/25 13:46 08/07/25 14:10 08/07/25 14:11 Temperature Pulse Rate 99 93 98 Respiratory Rate 26 H 16 16 Blood Pressure 111/69 Pulse Oximetry 97 97 Oxygen Delivery Fraction of Inspired Oxygen 08/07/25 14:15 08/07/25 14:16 08/07/25 14:30 Temperature Pulse Rate 92 90 86 Respiratory Rate 20 18 22 H Blood Pressure 117/71 111/65 Pulse Oximetry 97 100 94 Oxygen Delivery Fraction of Inspired Oxygen 08/07/25 14:31 08/07/25 14:45 08/07/25 14:46 Temperature Pulse Rate 90 97 Respiratory Rate 22 H 21 H 15 Blood Pressure 104/67 Pulse Oximetry 96 98 97 Oxygen Delivery Fraction of Inspired Oxygen 08/07/25 16:00 08/07/25 17:20 08/07/25 20:00 Temperature Pulse Rate 97 97 Respiratory Rate Blood Pressure Pulse Oximetry Oxygen Delivery Room Air Fraction of Inspired Oxygen 08/07/25 21:23 08/07/25 21:39 08/07/25 21:40 Temperature 36.8 C Pulse Rate 95 72 67 Respiratory Rate 18 Blood Pressure 121/70 Pulse Oximetry 97 94 Oxygen Delivery Room Air Fraction of Inspired Oxygen 21 08/08/25 00:00 08/08/25 04:00 08/08/25 05:59 Temperature 36.8 C Pulse Rate 82 81 81 Respiratory Rate 18 Blood Pressure 127/82 Pulse Oximetry 98 Oxygen Delivery Fraction of Inspired Oxygen 08/08/25 08:52 Temperature Pulse Rate 85 Respiratory Rate Blood Pressure Pulse Oximetry Oxygen Delivery Fraction of Inspired Oxygen Intake/Output Intake/Output: Intake & Output 08/05/25 08/06/25 08/07/25 08/08/25 23:59 23:59 23:59 23:59 Intake Total 270 1000 Output Total 0 1150 Balance 270 -150 Meds/Results Medications: Active Medications Generic Name Dose Route Start Last Admin Trade Name Freq PRN Reason Stop Dose Admin Acetaminophen 325 mg 08/07/25 17:53 Acetaminophen Elixir 325 Mg/10.15 Ml Udc PO Q6H PRN pain 1-3, mild Bethanechol Chloride 10 mg 08/07/25 21:00 08/08/25 07:12 Bethanechol Chloride 10 Mg Tablet PO 10 mg ACHS DEX Administration Diazepam 5 mg 08/07/25 17:18 Diazepam Inj (*Crx) 10 Mg/2 Ml Syringe IV PUSH Q6HR PRN Seizures Docusate Sodium 100 mg 08/07/25 13:58 Docusate Sodium 100 Mg Capsule PO BID PRN Constipation Folic Acid 1 mg 08/08/25 09:00 08/08/25 08:56 Folic Acid 1 Mg Tablet PO 1 mg DAILY DEX Administration Gabapentin 100 mg 08/08/25 09:00 08/08/25 08:56 Gabapentin 100 Mg Capsule PO 100 mg TID DEX Administration Hydrocortisone 1 applic 08/08/25 09:00 08/08/25 08:58 Hydrocortisone 1% 30 Gm Cream TOPICAL 08/08/25 17:01 1 applic BID DEX Administration Ceftriaxone Sodium 1 gm/ 50 mls @ 100 mls/hr 08/08/25 14:00 Sodium Chloride IVPB Q24H DEX Sodium Chloride 1,000 mls @ 100 mls/hr 08/07/25 14:00 08/08/25 02:07 Normal Saline Iv IV CONT 100 mls/hr .Q10H DEX Administration Levetiracetam 500 mg 08/07/25 21:00 08/08/25 08:57 Levetiracetam 500 Mg Tablet PO 500 mg Q12HR DEX Administration Loratadine 10 mg 08/08/25 09:00 08/08/25 08:58 Loratadine 10 Mg Tablet PO 10 mg QAM DEX Administration Melatonin 3 mg 08/07/25 21:00 08/07/25 21:38 Melatonin 3 Mg Tablet PO 3 mg HS DEX Administration Metoprolol Tartrate 50 mg 08/07/25 21:00 08/08/25 08:52 Metoprolol Tartrate 50 Mg Tab PO 50 mg Q12HR DEX Administration Midodrine 5 mg 08/08/25 09:00 08/08/25 08:57 Midodrine Hcl 2.5 Mg Tablet PO 5 mg TID DEX Administration Modafinil 200 mg 08/08/25 09:00 08/08/25 08:58 Modafinil (*Crx) 200 Mg Tablet PO 200 mg QAM DEX Administration Nicotine 1 patch 08/08/25 09:00 08/08/25 08:52 Nicotine (*Pbkc) 14 Mg Patch TRANSDERM 1 patch DAILY DEX Administration Polyethylene Glycol 17 gm 08/08/25 09:00 08/08/25 08:58 Polyethylene Glycol 3350 17 Gm Powd.Pack PO 17 gm QAM DEX Administration Senna 8.6 mg 08/07/25 21:00 08/07/25 21:39 Sennosides 8.6 Mg Tablet PO 8.6 mg HS DEX Administration Tamsulosin HCl 0.4 mg 08/08/25 09:00 08/08/25 08:58 Tamsulosin Hcl 0.4 Mg Capsule PO 0.4 mg DAILY DEX Administration Radiology Results: ITS Impressions Head CT 08/07/25 10:29 IMPRESSION: 1. No acute intracranial findings. Chest X-Ray 08/07/25 10:33 IMPRESSION: 1. Recommend CT chest with contrast to exclude perihilar abnormality. 2. No acute abnormality. Venous Doppler Study 08/07/25 12:18 IMPRESSION: 1. No left upper extremity DVT. Chest CT 08/07/25 14:29 IMPRESSION: Unremarkable exam. There is no hilar mass identified. Labs Labs: Laboratory Results - last 24 hr 08/07/25 08/08/25 10:55 04:56 WBC 6.5 7.5 RBC 3.74 L 3.73 L Hgb 11.8 L 11.9 L Hct 35.5 L 35.4 L MCV 94.9 94.9 MCH 31.6 31.9 MCHC 33.2 33.6 RDW 12.8 12.8 Plt Count 184 184 MPV 9.3 10.1 Immature Gran % (Auto) 0.3 0.3 Neut % (Auto) 61.8 68.1 Lymph % (Auto) 22.2 19.0 [place] % (Auto) 10.5 H 7.2 Eos % (Auto) 4.6 H 5.0 H Baso % (Auto) 0.6 0.4 Lymph # (Auto) 1.44 1.42 [place] # (Auto) 0.7 H 0.5 Eos # (Auto) 0.3 0.4 H Baso # (Auto) 0.0 0.0 Abs Immat Gran (auto) 0.02 0.02 Absolute Neuts (auto) 4.0 5.1 Absolute Nucleated RBC 0.000 0.000 Nucleated RBC % 0.0 0.0 PT 13.2 INR 1.0 APTT 27.7 Sodium 134 L 134 L Potassium 3.9 4.3 Chloride 102 105 Carbon Dioxide 27 24 Anion Gap 5 5 BUN 11 8 Creatinine 0.48 L 0.46 L Estim Creat Clear Calc 94 98 Estimated GFR > 60 > 60 Glucose 78 94 Calcium 8.6 8.6 Total Bilirubin 0.2 AST 33 ALT 35 Alkaline Phosphatase 123 Total Creatine Kinase < 20 L Total Protein 5.9 L Albumin 3.3 L Urine Color Yellow Urine Appearance Turbid H Urine pH 8.0 Ur Specific [place] 1.012 Urine Protein Negative Urine Glucose (UA) Negative Urine Ketones Negative Ur Blood (Man) Negative Urine Nitrate Positive H Urine Bilirubin Negative Urine Urobilinogen 0.2 Add Ur Microanalysis Reviewed Leukocyte Esterase Rfl 2+ H Urine RBC 11-20 H Urine WBC 11-20 H Ur Squamous Epith Cells None seen Amorphous Sediment Moderate H Urine Bacteria 3+ H Urine Casts 0-2 Quality VTE Prophylaxis VTE prophylaxis: mechanical ordered
--- NOTE | 2025-08-08 11:48 | PCPTNOTE ---
Attempted PT evaluation, pt at MRI. Will follow.
--- NOTE | 2025-08-08 13:18 | PCSTNOTE ---
Communication Evaluation This 60 year old female patient was admitted to [facility] on 08/07 from [facility] inpatient rehab facility due to seizure like activity. The patient has a PMH significant for ICH (intracerebral hemorrhage) or a hemorrhagic stroke that occurred ~1 month ago (07/10) and has been receiving intensive ST, OT and PT in inpatient rehab. She is currently on an IDDSI Level 5 minced and moist diet with IDDSI Level 2 mildly thickened liquids and demonstrates no difficulty with oral intake on this diet at this time. A communication evaluation was conducted. Auditory Comprehension: Patient demonstrates strong preserved single-word and basic yes/no comprehension and expressive labeling for body part vocabulary. Word retrieval is relatively preserved for common objects but shows occasional anomia. Performance declines markedly on complex yes/no questions and on multi-step commands, indicating difficulties with auditory comprehension at higher linguistic/working memory. Verbal Expression: Patient demonstrates intact single-word repetition but impaired sentence repetition. Patient has difficulty with automatic cued speech as well as open ended speech tasks. Patient demonstrates the inability to complete divergent naming tasks with answers provided being nonsensical. Orientation: The patient demonstrated impaired temporal and environmental orientation despite provision of binary choice prompts and both phonemic and phonetic cueing. Recommendations: Speech therapy services 3-5 days a week during the hospital stay targeting lexical retrieval, sentence-level processing, and improved orientation. Discharge to inpatient rehab and continue intensive ST. Thank you for this referral.
[2025-08-08] MEDS: cefTRIAXone 1 GM in SODIUM CHLORIDE 0.9% IV 50 ML 100 ML IVPB (13:33)
[2025-08-08] MEDS: SENNOSIDES 8.6 MG TABLET PO (21:00)
[2025-08-08] MEDS: MELATONIN 3 MG TABLET PO (21:00)
[2025-08-09] VITALS (12 sets, daily range): BP systolic 116–135; BP diastolic 66–79; PULSE 67–85; RESP 16–18; TEMP 36.4–36.7; O2SAT 94–99; BMI 21.2
[2025-08-09] MEDS: SODIUM CHLORIDE 0.9% IV 1,000 ML 100 ML IV CONT (01:50)
[2025-08-09 04:57] LABS: Anion Gap 5 mmol/L (4-12); Blood Urea Nitrogen 6 mg/dL (7-17); Calcium 8.4 mg/dL (8.4-10.2); Carbon Dioxide 22 mmol/L (22-30); Chloride 107 mmol/L (98-107); Estimated CRCL calculation 104 ml/min; Estimated Glomerular Filt Rate > 60; Glucose 93 mg/dL (65-110); Magnesium 1.9 mg/dL (1.6-2.3); Potassium 3.8 mmol/L (3.4-5.0); Sodium 134 mmol/L (137-145)
[2025-08-09] MEDS: BETHANECHOL CHLORIDE 10 MG TABLET PO ×3 (05:50→21:52)
[2025-08-09] MEDS: TAMSULOSIN HCL 0.4 MG CAPSULE PO (08:43)
[2025-08-09] MEDS: FOLIC ACID 1 MG TABLET PO (08:43)
[2025-08-09] MEDS: LORATADINE 10 MG TABLET PO (08:43)
[2025-08-09] MEDS: modafiniL (*CRX) 200 MG TABLET PO (08:43)
[2025-08-09] MEDS: METOPROLOL TARTRATE 50 MG TAB PO ×2 (08:44→21:52)
[2025-08-09] MEDS: NICOTINE (*PBKC) 14 MG PATCH 1 PATCH TRANSDERM (08:47)
--- NOTE | 2025-08-09 10:48 | P.PNIM_ITS ---
Progress Note: A&P Assessment and Plan (1) ICH (intracerebral hemorrhage): Code(s): I61.9 - Nontraumatic intracerebral hemorrhage, unspecified Status: Acute (2) Seizure: Code(s): R56.9 - Unspecified convulsions Status: Acute Assessment and Plan: Brain MRI IMPRESSION: 1. Chronic encephalomalacia involving the left insula, left basal ganglia, and left frontal lobe deep white matter. Chronic hematoma involving the left basal ganglia and left insula. Plan Seizure after ICH, intracranial hematoma -patient had intracranial hemorrhage 07/10/25 and [facility] at [facility]. She has some deficiencies include right-sided deficit and dysarthria. Her stroke symptoms are improving however she had a seizure episode while at rehab -head CT with no acute finding, she had a recent head bleed, seizure from settled blood? Patient has not had any issues for several weeks. No sign of rebleed, no seizure history -EEG pending -brain MRI 08/08: Chronic encephalomalacia of the left insular, basal ganglia, frontal lobe. Chronic hematoma in left basal ganglia and left insula -awaiting Neurology consultation -IV fluids: NS at 100 cc/hour for now -loaded with Keppra, continue Keppra 500 mg q.12 hours for now until neurology assessment -p.r.n. diazepam for seizures -seizure may be from the chronic blood settled in the brain Diffuse rash, drug rash? -recently started on gabapentin, will discontinue for now -continue hydrocortisone cream for rash -rash may be a drug rash. Location is mostly on the back also on her arms, spread throughout body. On extremities more proximal Urinary retention, UTI -awaiting urine culture. Urinalysis concern for bacteria -antibiotics: Continue Rocephin for 3 day course for now despite being afebrile and no leukocytosis. Retention symptom may be from infection -continue bladder scan q.6 hours and straight cath for greater than 300 cc -retention appears to be a post stroke development -with urinary retention she is at increased risk for UTI Chronic conditions -recent intracranial hemorrhage: Developed while at [facility], was hospitalized out there for several weeks. No anticoagulation for a month. Continue PT OT speech therapy -nicotine dependence: Nicotine patch -urinary retention: Continue straight catheterization intermittent, on Flomax? -bowel regimen: Senokot, MiraLax -essential hypertension: Metoprolol -allergies: Claritin -supplements: Folic acid -chronic left axillary DVT: No anticoagulation with the ICH -narcolepsy: modafinil, had an episode of falling asleep while sitting upright 08/09/25 -history of basal cell carcinoma status post plastic surgery Diet: Heart healthy DVT prophylaxis: SCDs, no chemoprophylaxis recent intracranial hemorrhage Code status: Full code Disposition: Back to rehab tomorrow Social: updated bedside Time Spent With Patient Time: 45 minutes Subjective Date/time seen: 08/09/25 10:48 Interval history: Patient seen and examined. When working physical therapy patient appeared to be falling asleep while sitting upright. She is on medication for narcolepsy in this may be an episode. Her blood pressure was stable. After 10 minutes her mentation improved back to baseline. She was sitting upright in chair. Patient's updated bedside. Brain MRI shows the chronic hematoma. Awaiting EEG and neurology recommendations. Her rash is unchanged. Will continue hydrocortisone cream. With her narcolepsy episode will hold off on Atarax or Benadryl, will avoid sedating medications. Plan will be to discharge back to rehab, possibly on antiepileptics. Review of Systems Review of Systems: 10 point ROS complete, negative other th an what is specified in HPI. Exam Narrative: - GENERAL: Pleasant woman in no acute d istress. falling asleep but arousable after several minutes. - EYES: EOMI. Anicteric. - HENT: Moist mucous membranes. - LUNGS: Clear to auscultation bilateral ly, no wheezing, rhonchi, or rales. - CARDIOVASCULAR: Regular rate and rhyth m. - ABDOMEN: Soft, non-tender and non-dist ended. No palpable masses. - EXTREMITIES: No edema. Peripheral puls es 2+. Non-tender. - NEUROLOGIC: Improvement of right lowe r extremity strength, dysarthria present - PSYCHIATRIC: cooperative - SKIN: Rash present throughout body in cluding chest, back, lower extremities. Rash predominantly on back. Surgical scar from basal cell carcinoma of her nose - LYMPH: No cervical lymphadenopathy. Objective Data Vital Signs Vital Signs: Vital Signs - 24 hr 08/08/25 14:00 08/08/25 16:00 08/08/25 20:00 Temperature 36.4 C Pulse Rate 76 90 84 Respiratory Rate 18 Blood Pressure 121/68 Pulse Oximetry 100 Oxygen Delivery Fraction of Inspired Oxygen 08/08/25 20:07 08/08/25 21:01 08/09/25 00:00 Temperature 36.4 C Pulse Rate 84 84 80 Respiratory Rate 17 Blood Pressure 117/64 Pulse Oximetry 100 Oxygen Delivery Fraction of Inspired Oxygen 08/09/25 04:00 08/09/25 04:28 08/09/25 08:40 Temperature 36.7 C 36.4 C L Pulse Rate 73 81 79 Respiratory Rate 16 16 Blood Pressure 135/79 116/67 Pulse Oximetry 94 97 Oxygen Delivery Fraction of Inspired Oxygen 08/09/25 08:43 08/09/25 08:43 08/09/25 08:44 Temperature Pulse Rate 85 69 85 Respiratory Rate 16 Blood Pressure Pulse Oximetry 97 Oxygen Delivery Room Air Fraction of Inspired Oxygen 08/09/25 08:44 08/09/25 09:00 Temperature Pulse Rate Respiratory Rate Blood Pressure Pulse Oximetry Oxygen Delivery Room Air Room Air Fraction of Inspired Oxygen Intake/Output Intake/Output: Intake & Output 08/06/25 08/07/25 08/08/25 08/09/25 23:59 23:59 23:59 23:59 Intake Total 270 2530 1390 Output Total 0 1950 1400 Balance 270 580 -10 Meds/Results Medications: Active Medications Generic Name Dose Route Start Last Admin Trade Name Cooperq PRN Reason Stop Dose Admin Acetaminophen 325 mg 08/07/25 17:53 Acetaminophen Elixir 325 Mg/10.15 Ml Udc PO Q6H PRN pain 1-3, mild Bethanechol Chloride 10 mg 08/07/25 21:00 08/09/25 05:50 Bethanechol Chloride 10 Mg Tablet PO 10 mg ACHS DEX Administration Diazepam 5 mg 08/07/25 17:18 Diazepam Inj (*Crx) 10 Mg/2 Ml Syringe IV PUSH Q6HR PRN Seizures Folic Acid 1 mg 08/08/25 09:00 08/09/25 08:43 Folic Acid 1 Mg Tablet PO 1 mg DAILY DEX Administration Hydrocortisone 1 applic 08/09/25 10:45 Hydrocortisone 1% 30 Gm Cream TOPICAL Q12HR DEX Sodium Chloride 1,000 mls @ 100 mls/hr 08/07/25 14:00 08/09/25 01:50 Normal Saline Iv IV CONT 100 mls/hr .Q10H DEX Administration Ceftriaxone Sodium 1 gm/ 50 mls @ 100 mls/hr 08/08/25 14:00 08/08/25 14:03 Sodium Chloride IVPB 08/10/25 14:29 Infused Q24H DEX Infusion Levetiracetam 500 mg 08/07/25 21:00 08/09/25 08:43 Levetiracetam 500 Mg Tablet PO 500 mg Q12HR DEX Administration Loratadine 10 mg 08/08/25 09:00 08/09/25 08:43 Loratadine 10 Mg Tablet PO 10 mg QAM DEX Administration Melatonin 3 mg 08/07/25 21:00 08/08/25 21:00 Melatonin 3 Mg Tablet PO 3 mg HS DEX Administration Metoprolol Tartrate 50 mg 08/07/25 21:00 08/09/25 08:44 Metoprolol Tartrate 50 Mg Tab PO 50 mg Q12HR DEX Administration Modafinil 200 mg 08/08/25 09:00 08/09/25 08:43 Modafinil (*Crx) 200 Mg Tablet PO 200 mg QAM DEX Administration Nicotine 1 patch 08/08/25 09:00 08/09/25 08:47 Nicotine (*Pbkc) 14 Mg Patch TRANSDERM 1 patch DAILY DEX Administration Polyethylene Glycol 17 gm 08/08/25 09:00 08/09/25 08:43 Polyethylene Glycol 3350 17 Gm Powd.Pack PO 17 gm QAM DEX Administration Senna 8.6 mg 08/07/25 21:00 08/08/25 21:00 Sennosides 8.6 Mg Tablet PO 8.6 mg HS DEX Administration Tamsulosin HCl 0.4 mg 08/08/25 09:00 08/09/25 08:43 Tamsulosin Hcl 0.4 Mg Capsule PO 0.4 mg DAILY DEX Administration Radiology Results: ITS Impressions Head CT 08/07/25 10:29 IMPRESSION: 1. No acute intracranial findings. Chest X-Ray 08/07/25 10:33 IMPRESSION: 1. Recommend CT chest with contrast to exclude perihilar abnormality. 2. No acute abnormality. Venous Doppler Study 08/07/25 12:18 IMPRESSION: 1. No left upper extremity DVT. Chest CT 08/07/25 14:29 IMPRESSION: Unremarkable exam. There is no hilar mass identified. Brain MRI 08/08/25 12:31 IMPRESSION: 1. Chronic encephalomalacia involving the left insula, left basal ganglia, and left frontal lobe deep white matter. Chronic hematoma involving the left basal ganglia and left insula. Labs Labs: Laboratory Results - last 24 hr 08/09/25 04:09 Sodium 134 L Potassium 3.8 Chloride 107 Carbon Dioxide 22 Anion Gap 5 BUN 6 L Creatinine 0.43 L Estim Creat Clear Calc 104 Estimated GFR > 60 Glucose 93 Calcium 8.4 Magnesium 1.9
--- NOTE | 2025-08-09 12:05 | WPDNEURCNPN ---
Assessment and Plan Assessment and plan (1) Seizure: Code(s): R56.9 - Unspecified convulsions Status: Acute (2) Hemiparesis of right dominant side as late effect of nontraumatic intracerebral hemorrhage: Code(s): I69.151 - Hemiplegia and hemiparesis following nontraumatic intracerebral hemorrhage affecting right dominant side Status: Acute (3) Aphasia due to and not concurrent with nontraumatic intracerebral hemorrhage: Code(s): I69.120 - Aphasia following nontraumatic intracerebral hemorrhage Status: Acute (4) ICH (intracerebral hemorrhage): Code(s): I61.9 - Nontraumatic intracerebral hemorrhage, unspecified Status: Acute (5) HTN (hypertension): Code(s): I10 - Essential (primary) hypertension Status: Acute (6) Smoker: Code(s): F17.200 - Nicotine dependence, unspecified, uncomplicated Status: Acute Plan I would suggest increase the dose of levetiracetam to 750 mg twice a day. I do not know why she is on Provigil however it may have been due to drowsiness sometimes seen after large intercerebral hemorrhage particular with extension into the ventricles and may have been given more alert. Unless there is any strong reason to keep her on that I will suggest to discontinue that since the stimulant can increase the possibility of seizures and also hypertension. Her and her daughter had questions and I answered them to my capacity and I have given them my phone number that she may require some neurologic follow-up in 6-8 weeks time. Seizure medication may have to be adjusted should continue the rehab with the speech therapy and physical and occupational therapy. Consult date: 08/09/25 HPI: Kerry Jimenez is a 60 year old female with history of cerebral hemorrhage in the recent past for which she was treated in [place]. Patient was on the way to the [facility] and at the last week as airport in a stop over she collapsing 08/10/2025 and developed symptoms of paralysis on the right side and was taken to the local hospital. She was there for 16 days. 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 After stabilization she was referred to [facility] where she was admitted on 07/26/2025 according to the records patient was found to have a left basal ganglia, external capsule intraparenchymal hemorrhage with intraventricular extension and 8 mm rightward midline shift and effacement of 3rd ventricles. It was noted the patient has history of hypertension and a smoking. The patient was taking care of at [facility]. patient was seen by the neurosurgeons and neurologists. She was given Keppra as prophylaxis seizures point of view. Patient's was present the time of this evaluation. She also has a daughter who was on phone line. They have noted that sometimes she could be making some sense another time she does not seem to make any sense. The patient continues to have speech difficulties and is being evaluated by speech therapist. At a portion to speak to the speech therapist also. Patient was admitted to the [facility] on account of having a seizure. When she was discharged from [facility] she was taken off Keppra since it was given as prophylaxis while she came in with a infarct and hemorrhage. After admission here she has had a CT scan of brain which shows no new hemorrhage however chronic changes were noted in the left basal ganglia and surrounding region. An MRI of the brain was performed the findings were noted. There is no evidence for new stroke but the previously recognized hematoma on the left side was noted on the diffusion sequence. Would see is also on Provigil 200 mg a day and Keppra 500 mg twice a day. The reason for her being on modafinil was not clear to me. She also has some problems in the family is concerned about it since he states that she does not get to know when she has to go. She has developed a rash etiology for this is being investigated. There was some suspicion the gabapentin may have led to that and she is off the medication. Review of Systems Review of Systems: No recent febrile illness or trauma besides the history given above. Patient has aphasia but does seem to understand given commands but cannot find the words to express herself all the time she does seem to try. Also has paraphasic errors. [facility] Past Medical History Medical History Smoker History of high blood pressure Surgical History Surgical History S/P lateral meniscal repair Social History Social History Smoking packs per day: 1 Smoking cigarettes per day: 20.0 Years smoked: 34 Smoking pack-years: 34.00 Smoking status: Current every day smoker Tobacco type: cigarettes Additional smoking assessment comments: been smoking since the age of 11 Alcohol intake: current Drinks per week: 15 Substance use: never Lack of Transportation: No Lack of Food: Never True Current Housing: I Have Housing Concerned About Future Housing: No Difficulty Paying Gas/Electric Bills: No Difficulty Paying for Meds: No Currently Unemployed: No Education: High School Diploma/GED Difficulty w/ Childcare or Family Care: No Gender identity (if verbalized by the patient): Female Spiritual care concerns: Yes (Yazdanism) Meds Home Medications and Allergies Home Medications ?Medication ?Instructions ?Recorded ?Confirmed ?Type amlodipine 10 mg tablet 10 mg PO DAILY 07/26/25 08/07/25 History Held on 08/07/25. Instructions: .Provider Order folic acid 1 mg tablet 1 mg PO DAILY 07/26/25 08/07/25 History metoprolol tartrate 100 mg tablet 50 mg PO BID 07/26/25 08/07/25 History nicotine 14 mg/24 hr daily 1 patch transdermal DAILY 07/26/25 08/07/25 History transdermal patch (Nicoderm CQ) tamsulosin 0.4 mg capsule (Flomax) 0.4 mg PO DAILY 07/26/25 08/07/25 History Bacillus coagulans 250 million 1 tablet PO QHS 08/07/25 08/07/25 History cell chewable tablet (Digestive Advantage Immune) acetaminophen 325 mg/10.15 mL oral 325 mg PO Q6H PRN pain, mild 08/07/25 08/07/25 History solution bethanechol chloride 10 mg tablet 10 mg PO ACHS 08/07/25 08/07/25 History docusate sodium 100 mg capsule 100 mg PO BID 08/07/25 08/07/25 History folic acid 1 mg tablet 1 mg PO DAILY 08/07/25 08/07/25 History gabapentin 100 mg capsule 100 mg PO TID 08/07/25 08/07/25 History hydrocortisone 1 % topical cream 1 applic topical BID 08/07/25 08/07/25 History (Ala-Nahum) melatonin 3 mg capsule 3 mg PO HS 08/07/25 08/07/25 History midodrine 5 mg tablet 5 mg PO TID 08/07/25 08/07/25 History modafinil 200 mg tablet 200 mg PO QAM 08/07/25 08/07/25 History psyllium husk 0.52 gram capsule 1.04 g PO HS 08/07/25 08/07/25 History (Daily Fiber) Allergies Allergy/AdvReac Type Severity Reaction Status Date / Time amoxicillin Allergy Intermediate Rash Verified 08/07/25 16:27 Penicillins Allergy Intermediate Rash Verified 08/07/25 16:27 Vital Signs Vital Signs - 24 hr 08/08/25 14:00 08/08/25 16:00 08/08/25 20:00 Temperature 97.6 F Pulse Rate 76 90 84 Respiratory Rate 18 Blood Pressure 121/68 Pulse Oximetry 100 Oxygen Delivery Fraction of Inspired Oxygen 08/08/25 20:07 08/08/25 21:01 08/09/25 00:00 Temperature 97.6 F Pulse Rate 84 84 80 Respiratory Rate 17 Blood Pressure 117/64 Pulse Oximetry 100 Oxygen Delivery Fraction of Inspired Oxygen 08/09/25 04:00 08/09/25 04:28 08/09/25 08:40 Temperature 98.0 F 97.5 F L Pulse Rate 73 81 79 Respiratory Rate 16 16 Blood Pressure 135/79 116/67 Pulse Oximetry 94 97 Oxygen Delivery Fraction of Inspired Oxygen 08/09/25 08:43 08/09/25 08:43 08/09/25 08:44 Temperature Pulse Rate 85 69 85 Respiratory Rate 16 Blood Pressure Pulse Oximetry 97 Oxygen Delivery Room Air Fraction of Inspired Oxygen 21 08/09/25 08:44 08/09/25 09:00 Temperature Pulse Rate Respiratory Rate Blood Pressure Pulse Oximetry Oxygen Delivery Room Air Room Air Fraction of Inspired Oxygen Exam Narrative: Fully conscious alert seems to have expressive aphasia although she does try to get some words time. She does follow one-step commands. She is unable to name 5 fruits or 5 colors but she did start. Unable to tell me name the hospital or her children's names. Exam head and neck shows no evidence of external trauma. No nuchal rigidity. No carotid bruit. Heart sounds were normal. No murmur. Cranial nerves examination shows visual yao grossly normal. No facial asymmetry. Tongue was midline. Motor system right upper limb 1-2 /5 and right lower limb power grade 3-4/5. Sensations are grossly intact. No involuntary movements are seen. Deep tendon reflexes did not show any significant asymmetry. Results Labs 08/08/25 04:56 08/09/25 04:09 Labs: BMP 08/09/25 04:09 Sodium 134 L Potassium 3.8 Chloride 107 Carbon Dioxide 22 BUN 6 L Creatinine 0.43 L Glucose 93 Calcium 8.4 Imaging Attestation: I personally reviewed and interpreted this imaging study as follows: ( CT scan of brain and MRI of the brain) My impression: CT scan of brain shows hypodensity in the area of infarct in the left basal ganglia and surrounding areas there seems to some confusion see with the lateral ventricle. MRI of the brain shows hyperintensity in DWI sequence. Radiologist's impression: Similar
[2025-08-09] MEDS: cefTRIAXone 1 GM in SODIUM CHLORIDE 0.9% IV 50 ML 100 ML IVPB (14:38)
[2025-08-09] MEDS: HYDROCORTISONE 1% 30 GM CREAM 1 APPLIC TOPICAL ×2 (15:15→21:53)
--- NOTE | 2025-08-09 21:12 | PC.NURSE ---
Pt has been requiring straight cath q6hrs and has not had any urine output continent or incontinent, and has denied sensation of needing to void since admission. Bladder scan shows at least 1L retained at 2100, Steve Lamas [employer] notified and order received to place baldwin catheter and consult urology for neurogenic bladder/urinary retention.
[2025-08-09] MEDS: MELATONIN 3 MG TABLET PO (21:53)
[2025-08-09] MEDS: SENNOSIDES 8.6 MG TABLET PO (21:53)
[2025-08-10] VITALS (13 sets, daily range): BP systolic 118–145; BP diastolic 65–83; PULSE 71–83; RESP 18; TEMP 36.1–36.4; O2SAT 95–100
[2025-08-10 04:46] LABS: Hematocrit 37.6 % (37.0-47.0); Hemoglobin 12.5 g/dL (12.0-15.0); Mean Corpuscular HGB Conc 33.2 g/dl (32-36); Mean Corpuscular Hemoglobin 31.3 pg (26-34); Mean Corpuscular Volume 94.2 fl (80-100); Platelet Count Result 186 k/mm3 (150-375); Red Blood Count 3.99 M/mm3 (4.2-5.4); White Blood Count 5.5 K/mm3 (4.5-10.0)
[2025-08-10 05:00] LABS: Anion Gap 4 mmol/L (4-12); Blood Urea Nitrogen 6 mg/dL (7-17); Calcium 9.0 mg/dL (8.4-10.2); Carbon Dioxide 25 mmol/L (22-30); Chloride 105 mmol/L (98-107); Estimated CRCL calculation 91 ml/min; Estimated Glomerular Filt Rate > 60; Glucose 102 mg/dL (65-110); Potassium 3.7 mmol/L (3.4-5.0); Sodium 134 mmol/L (137-145)
[2025-08-10] MEDS: BETHANECHOL CHLORIDE 10 MG TABLET PO ×3 (06:17→22:16)
--- NOTE | 2025-08-10 07:09 | P.PNIM_ITS ---
Progress Note: A&P Assessment and Plan (1) ICH (intracerebral hemorrhage): Code(s): I61.9 - Nontraumatic intracerebral hemorrhage, unspecified Status: Acute (2) Seizure: Code(s): R56.9 - Unspecified convulsions Status: Acute Assessment and Plan: Brain MRI IMPRESSION: 1. Chronic encephalomalacia involving the left insula, left basal ganglia, and left frontal lobe deep white matter. Chronic hematoma involving the left basal ganglia and left insula. Plan Seizure after ICH, intracranial hematoma -patient had intracranial hemorrhage 07/10/25 and [facility] at [facility]. She has some deficiencies include right-sided deficit and dysarthria. Her stroke symptoms are improving however she had a seizure episode while at rehab -head CT with no acute finding, she had a recent head bleed, seizure from settled blood? Patient has not had any issues for several weeks. No sign of rebleed, no seizure history -EEG pending -brain MRI 08/08: Chronic encephalomalacia of the left insular, basal ganglia, frontal lobe. Chronic hematoma in left basal ganglia and left insula -awaiting Neurology consultation -IV fluids: NS at 100 cc/hour for now -loaded with Keppra, continue Keppra 750 mg p.o. b.i.d. as per Neurology -p.r.n. diazepam for seizures -seizure may be from the chronic blood settled in the brain Diffuse rash, drug rash? -recently started on gabapentin, will discontinue for now -continue hydrocortisone cream for rash -started prednisone 40 mg p.o. q.d. for 5 days -rash may be a drug rash. Location is mostly on the back also on her arms, spread throughout body. On extremities more proximal Urinary retention, UTI -awaiting urine culture. Urinalysis concern for bacteria -antibiotics: Continue Rocephin for 3 day course for now despite being afebrile and no leukocytosis. Retention symptom may be from infection -continue bladder scan q.6 hours and straight cath for greater than 300 cc -retention appears to be a post stroke development -with urinary retention she is at increased risk for UTI Chronic conditions -recent intracranial hemorrhage: Developed while at [place] [facility], was hosp italized out there for several weeks. No anticoagulation for a month. Continue PT OT speech therapy -nicotine dependence: Nicotine patch -urinary retention: Continue straight catheterization intermittent, on Flomax? -bowel regimen: Senokot, MiraLax -essential hypertension: Metoprolol -allergies: Claritin -supplements: Folic acid -chronic left axillary DVT: No anticoagulation with the ICH -narcolepsy: modafinil, had an episode of falling asleep while sitting upright 08/09/25 -history of basal cell carcinoma status post plastic surgery Diet: Heart healthy DVT prophylaxis: SCDs, no chemoprophylaxis recent intracranial hemorrhage Code status: Full code Disposition: Back to rehab tomorrow Social: updated bedside Subjective Date/time seen: 08/10/25 07:09 Interval history: Interval history: Kerry Jimenez is a 60 year old female with history of cerebral hemorrhage in the recent past for which she was treated in [place].Developed symptoms of paralysis on the right side and was taken to the local hospital. She was there for 16 days. 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 After stabilization she was [facility] to [facility] where she was admitted on 07/26/2025 according to the records patient was found to have a left basal ganglia, external capsule intraparenchymal hemorrhage with intraventricular extension and 8 mm rightward midline shift and effacement of 3rd ventricles. It was noted the patient has history of hypertension and a smoking. The patient was taking care of at [facility]. When she was discharged from [facility] she was taken off Keppra since it was given as prophylaxis while she came in with a infarct and hemorrhage. The patient continues to have speech difficulties and is being evaluated by speech therapist. Patient was later admitted in [place] rehab and was transferred to [facility] due to episodes of seizures. Neurology evaluated the patient. Patient is currently on Keppra 750 mg p.o. b.i.d.. 08/10: Patient underwent MBS and no signs of aspiration. Patient recently developed a rash and stopped modafinil and gabapentin. Started prednisone 40 mg p.o. q.d. for 5 days. Review of Systems 2 Review of Systems: 10 point ROS complete, negative other th an what is specified in HPI. Exam Narrative: - GENERAL: Pleasant woman in no acute d istress. falling asleep but arousable after several minutes. - EYES: EOMI. Anicteric. - HENT: Moist mucous membranes. - LUNGS: Clear to auscultation bilateral ly, no wheezing, rhonchi, or rales. - CARDIOVASCULAR: Regular rate and rhyth m. - ABDOMEN: Soft, non-tender and non-dist ended. No palpable masses. - EXTREMITIES: No edema. Peripheral puls es 2+. Non-tender. - NEUROLOGIC: Improvement of right lowe r extremity strength, dysarthria present - PSYCHIATRIC: cooperative - SKIN: Rash present throughout body in cluding chest, back, lower extremities. Rash predominantly on back. Surgical scar from basal cell carcinoma of her nose - LYMPH: No cervical lymphadenopathy. Objective Data Vital Signs Vital Signs: Vital Signs - 24 hr 08/09/25 08:40 08/09/25 08:43 08/09/25 08:43 Temperature 97.5 F L Pulse Rate 79 85 69 Respiratory Rate 16 16 Blood Pressure 116/67 Pulse Oximetry 97 97 Oxygen Delivery Room Air Fraction of Inspired Oxygen 21 08/09/25 08:44 08/09/25 08:44 08/09/25 09:00 Temperature Pulse Rate 85 Respiratory Rate Blood Pressure Pulse Oximetry Oxygen Delivery Room Air Room Air Fraction of Inspired Oxygen 08/09/25 12:00 08/09/25 14:00 08/09/25 16:00 Temperature 97.6 F Pulse Rate 67 76 73 Respiratory Rate 18 Blood Pressure 119/75 Pulse Oximetry 99 Oxygen Delivery Fraction of Inspired Oxygen 08/09/25 20:00 08/09/25 20:41 08/09/25 21:52 Temperature 97.7 F Pulse Rate 82 79 79 Respiratory Rate 18 Blood Pressure 119/66 Pulse Oximetry 98 Oxygen Delivery Fraction of Inspired Oxygen 08/10/25 00:00 08/10/25 03:34 08/10/25 04:00 Temperature 96.9 F L Pulse Rate 74 73 75 Respiratory Rate 18 Blood Pressure 122/68 Pulse Oximetry 98 Oxygen Delivery Fraction of Inspired Oxygen Intake/Output Intake/Output: Intake & Output 08/07/25 08/08/25 08/09/25 08/10/25 23:59 23:59 23:59 23:59 Intake Total 270 9800 1870 240 Output Total 0 1950 1950 1500 Balance 270 362 [id number] Meds/Results Medications: Active Medications Generic Name Dose Route Start Last Admin Trade Name Freq PRN Reason Stop Dose Admin Acetaminophen 325 mg 08/07/25 17:53 Acetaminophen Elixir 325 Mg/10.15 Ml Udc PO Q6H PRN pain 1-3, mild Bethanechol Chloride 10 mg 08/07/25 21:00 08/10/25 06:17 Bethanechol Chloride 10 Mg Tablet PO 10 mg ACHS DEX Administration Diazepam 5 mg 08/07/25 17:18 Diazepam Inj (*Crx) 10 Mg/2 Ml Syringe IV PUSH Q6HR PRN Seizures Folic Acid 1 mg 08/08/25 09:00 08/09/25 08:43 Folic Acid 1 Mg Tablet PO 1 mg DAILY DEX Administration Hydrocortisone 1 applic 08/09/25 10:45 08/09/25 21:53 Hydrocortisone 1% 30 Gm Cream TOPICAL 1 applic Q12HR DEX Administration Ceftriaxone Sodium 1 gm/ 50 mls @ 100 mls/hr 08/08/25 14:00 08/09/25 14:38 Sodium Chloride IVPB 08/10/25 14:29 100 mls/hr Q24H DEX Administration Levetiracetam 750 mg 08/09/25 21:00 08/09/25 21:53 Levetiracetam 250 Mg Tablet PO 750 mg Q12HR DEX Administration Loratadine 10 mg 08/08/25 09:00 08/09/25 08:43 Loratadine 10 Mg Tablet PO 10 mg QAM DEX Administration Melatonin 3 mg 08/07/25 21:00 08/09/25 21:53 Melatonin 3 Mg Tablet PO 3 mg HS DEX Administration Metoprolol Tartrate 50 mg 08/07/25 21:00 08/09/25 21:52 Metoprolol Tartrate 50 Mg Tab PO 50 mg Q12HR DEX Administration Nicotine 1 patch 08/08/25 09:00 08/09/25 08:47 Nicotine (*Pbkc) 14 Mg Patch TRANSDERM 1 patch DAILY DEX Administration Polyethylene Glycol 17 gm 08/08/25 09:00 08/09/25 08:43 Polyethylene Glycol 3350 17 Gm Powd.Pack PO 17 gm QAM DEX Administration Senna 8.6 mg 08/07/25 21:00 08/09/25 21:53 Sennosides 8.6 Mg Tablet PO 8.6 mg HS DEX Administration Tamsulosin HCl 0.4 mg 08/08/25 09:00 08/09/25 08:43 Tamsulosin Hcl 0.4 Mg Capsule PO 0.4 mg DAILY DEX Administration Radiology Results: ITS Impressions Head CT 08/07/25 10:29 IMPRESSION: 1. No acute intracranial findings. Chest X-Ray 08/07/25 10:33 IMPRESSION: 1. Recommend CT chest with contrast to exclude perihilar abnormality. 2. No acute abnormality. Venous Doppler Study 08/07/25 12:18 IMPRESSION: 1. No left upper extremity DVT. Chest CT 08/07/25 14:29 IMPRESSION: Unremarkable exam. There is no hilar mass identified. Brain MRI 08/08/25 12:31 IMPRESSION: 1. Chronic encephalomalacia involving the left insula, left basal ganglia, and left frontal lobe deep white matter. Chronic hematoma involving the left basal ganglia and left insula. Labs Labs: Laboratory Results - last 24 hr 08/10/25 04:19 WBC 5.5 RBC 3.99 L Hgb 12.5 Hct 37.6 MCV 94.2 MCH 31.3 MCHC 33.2 RDW 12.4 Plt Count 186 MPV 10.0 Sodium 134 L Potassium 3.7 Chloride 105 Carbon Dioxide 25 Anion Gap 4 BUN 6 L Creatinine 0.50 L Estim Creat Clear Calc 91 Estimated GFR > 60 Glucose 102 Calcium 9.0 Quality VTE Prophylaxis VTE prophylaxis: mechanical ordered Hospitalist [facility] Advance Care Plan I have confirmed that the patient's Advanced Care Plan is present, code status is documented, or surrogate decision maker is listed in patient medical record.: Yes Medication Reconciliation I have utilized all available resources to obtain, update and review the patients current medications (includes all prescriptions, OTC, herbals, cannabis, and nutritional supplements).: Yes
--- NOTE | 2025-08-10 09:01 | WPDNEUROLOGY ---
Neurology EEG Report General Information Date of Study: 08/09/25 TEST EEG DIAGNOSIS Seizure-like activity. CONDITION OF RECORDING Awake ,drowsy and asleep. EEG NUMBER [id number] CLINICAL HISTORY 60 years old female had a seizure-like activity after intracranial hemorrhage. Patient is able to communicate, but is still experiencing aphasia. She states that she is still having shoulder pain and weakness. She is also uncomfortable because her rash itching. Patient can follow commands, but needs reinforcement and reminders at times. EEG DESCRIPTION Whole record consists of low voltage 15 to 18 hertz per 2nd beta activity admixed with low to medium voltage 6 to 7 hertz per 2nd theta activity particularly during drowsiness admixed with multiple movement artifacts and multiple muscle artifacts. Bilateral symmetrical sleep activity seen with sleep spindles. Photic stimulation not done. Hyperventilation not done. Non paroxysmal. Nonfocal. Nonlateralizing. IMPRESSION Normal record with no evidence of focal slowing or paroxysmal activity clinical correlation recommended as the EEG can be normal even if the patient has the 6 history of seizure disorder.
[2025-08-10] MEDS: FOLIC ACID 1 MG TABLET PO (09:19)
[2025-08-10] MEDS: TAMSULOSIN HCL 0.4 MG CAPSULE PO (09:19)
[2025-08-10] MEDS: LORATADINE 10 MG TABLET PO (09:19)
[2025-08-10] MEDS: METOPROLOL TARTRATE 50 MG TAB PO ×2 (09:19→22:16)
[2025-08-10] MEDS: NICOTINE (*PBKC) 14 MG PATCH 1 PATCH TRANSDERM (09:20)
--- NOTE | 2025-08-10 09:40 | WPDURCON ---
Assessment and Plan Assessment and plan (1) Urinary retention: Code(s): R33.9 - Retention of urine, unspecified Status: Acute Assessment and Plan: - Urinary retention likely 2/2 recent CVA - Recommend continued Almaguer catheter use for urinary diversion - Will ultimately benefit from outpatient workup with urodynamics to evaluate bladder function but do not recommend until after pt is out of acute phase of recent CVA - No surgical intervention indicated at this time (2) UTI (urinary tract infection): Qualifiers: Urinary tract infection type: acute cystitis Hematuria presence: without hematuria Qualified Code(s): N30.00 - Acute cystitis without hematuria Code(s): N39.0 - Urinary tract infection, site not specified Status: Acute Assessment and Plan: - UA consistent with UTI - Continue broad spectrum Abx; once culture results tansition to cover based on susceptibility profile Plan Urology to follow peripherally; please call with further questions Urology Consult Note HPI Date Seen: 08/10/25 Requesting Physician: Luciano Medina MD Primary Care Provider: Abdias Feng MD Consult Narrative Narrative: Pt is a 60 year old F with recent CVA last month (treated at [facility]) with residual aphasia and Right hemiplegia staying at [facility] with recent seizure for whom urology is consulted for urinary retention. Pt Hx largely taken from who is present at bedside. States that since her CVA pt has been unable to empty her bladder adequately and has been managed with CIC at the rehab center and Almaguer catheter while admitted in [place] and now during current admission. Pt denies any recent gross hematuria, bladder pain, F/C/N/V. Review of Systems Constitutional: Constitutional: Denies body ache(s) and Denies chills Eyes: Eyes: Reports no additional eye complaints ENT: Reports Normal hearing present, Denies nasal congestion and Denies nasal discharge Cardiovascular: Cardiovascular: Denies chest pain Respiratory: Respiratory: Denies cough and Denies wheezing Gastrointestinal: Gastrointestinal: Denies abdominal pain, Denies nausea and Denies vomiting Genitourinary: Genitourinary: Reports urinary frequency, Denies pelvic pain and Denies flank pain Neurologic: Reports Abnormal speech present, Reports abnormal gait and Denies confusion Psychiatric: Psychiatric: Denies confusion [facility] Past Medical History Medical History Smoker History of high blood pressure Surgical History Surgical History S/P lateral meniscal repair Social History Social History Smoking packs per day: 1 Smoking cigarettes per day: 20.0 Years smoked: 34 Smoking pack-years: 34.00 Smoking status: Current every day smoker Tobacco type: cigarettes Additional smoking assessment comments: been smoking since the age of 11 Alcohol intake: current Drinks per week: 15 Substance use: never Lack of Transportation: No Lack of Food: Never True Current Housing: I Have Housing Concerned About Future Housing: No Difficulty Paying Gas/Electric Bills: No Difficulty Paying for Meds: No Currently Unemployed: No Education: High School Diploma/GED Difficulty w/ Childcare or Family Care: No Gender identity (if verbalized by the patient): Female Spiritual care concerns: No Meds Home Medications and Allergies Home Medications ?Medication ?Instructions ?Recorded ?Confirmed ?Type amlodipine 10 mg tablet 10 mg PO DAILY 07/26/25 08/07/25 History Held on 08/07/25. Instructions: .Provider Order folic acid 1 mg tablet 1 mg PO DAILY 07/26/25 08/07/25 History metoprolol tartrate 100 mg tablet 50 mg PO BID 07/26/25 08/07/25 History nicotine 14 mg/24 hr daily 1 patch transdermal DAILY 07/26/25 08/07/25 History transdermal patch (Nicoderm CQ) tamsulosin 0.4 mg capsule (Flomax) 0.4 mg PO DAILY 07/26/25 08/07/25 History Bacillus coagulans 250 million 1 tablet PO QHS 08/07/25 08/07/25 History cell chewable tablet (Digestive Advantage Immune) acetaminophen 325 mg/10.15 mL oral 325 mg PO Q6H PRN pain, mild 08/07/25 08/07/25 History solution bethanechol chloride 10 mg tablet 10 mg PO ACHS 08/07/25 08/07/25 History docusate sodium 100 mg capsule 100 mg PO BID 08/07/25 08/07/25 History folic acid 1 mg tablet 1 mg PO DAILY 08/07/25 08/07/25 History gabapentin 100 mg capsule 100 mg PO TID 08/07/25 08/07/25 History hydrocortisone 1 % topical cream 1 applic topical BID 08/07/25 08/07/25 History (Ala-Nahum) melatonin 3 mg capsule 3 mg PO HS 08/07/25 08/07/25 History midodrine 5 mg tablet 5 mg PO TID 08/07/25 08/07/25 History modafinil 200 mg tablet 200 mg PO QAM 08/07/25 08/07/25 History psyllium husk 0.52 gram capsule 1.04 g PO HS 08/07/25 08/07/25 History (Daily Fiber) Allergies Allergy/AdvReac Type Severity Reaction Status Date / Time amoxicillin Allergy Intermediate Rash Verified 08/07/25 16:27 Penicillins Allergy Intermediate Rash Verified 08/07/25 16:27 Vital Signs Vital Signs - 24 hr 08/09/25 12:00 08/09/25 14:00 08/09/25 16:00 Temperature 36.4 C Pulse Rate 67 76 73 Respiratory Rate 18 Blood Pressure 119/75 Pulse Oximetry 99 08/09/25 20:00 08/09/25 20:41 08/09/25 21:52 Temperature 36.5 C Pulse Rate 82 79 79 Respiratory Rate 18 Blood Pressure 119/66 Pulse Oximetry 98 08/10/25 00:00 08/10/25 03:34 08/10/25 04:00 Temperature 36.1 C L Pulse Rate 74 73 75 Respiratory Rate 18 Blood Pressure 122/68 Pulse Oximetry 98 08/10/25 09:19 Temperature Pulse Rate 78 Respiratory Rate Blood Pressure Pulse Oximetry Results Labs 08/10/25 04:19 08/10/25 04:19 Labs: Short CBC 08/10/25 Range/Units 04:19 WBC 5.5 (4.5-10.0) K/mm3 Hgb 12.5 (12.0-15.0) g/dL Hct 37.6 (37.0-47.0) % Plt Count 186 (150-375) k/mm3 BMP 08/10/25 04:19 Sodium 134 L Potassium 3.7 Chloride 105 Carbon Dioxide 25 BUN 6 L Creatinine 0.50 L Glucose 102 Calcium 9.0
--- NOTE | 2025-08-10 14:08 | PCSTNOTE ---
Please refer to the Modified Barium Swallow Evaluation in the EMR. The patient is a 60 year old admitted with history of CVA and diet modification due to dysphagia. Orders received to complete a MBS to rule our aspiration risk and advance diet as tolerated. The patient was positioned in a lateral view and presented the following consistencies: 5cc/tsp thin liquid barium, cup amounts thin liquid barium, pudding mixed with barium paste, and cracker coated with barium paste. Oral Stage: Timely oral preparation and transit for all consistencies. Extra time to masticate solid bolus. Pharyngeal stage: When presented 5cc/tsp thin liquid, cup trials thin liquid, and pudding mixed with barium paste swallow initiation was viewed to be timely without viewed aspiration or penetration. When presented cracker coated with barium paste the material was viewed to spill to the level of the pyriform sinus prior to swallow initiation due to prolonged mastication. However, the patient maintained a cohesive bolus without viewed aspiration or penetration or residual remaining in the vallecula and/or pyriform sinus. Recommend 1. Regular Diet / Level 7 2. Thin liquid / Level 0 3. Small bites and drinks 4. Upright with meals 5. May eat independent
[2025-08-10] MEDS: cefTRIAXone 1 GM in SODIUM CHLORIDE 0.9% IV 50 ML 100 ML IVPB (14:35)
--- NOTE | 2025-08-10 14:55 | PC.NURSE ---
On 08/10/25, the student, [Haley Whiteside], provided care and [facility]. I have reviewed the student's documentation and agree with the findings.
[2025-08-10] MEDS: SENNOSIDES 8.6 MG TABLET PO (22:16)
[2025-08-10] MEDS: HYDROCORTISONE 1% 30 GM CREAM 1 APPLIC TOPICAL (22:16)
[2025-08-10] MEDS: MELATONIN 3 MG TABLET PO (22:16)
[2025-08-11] VITALS (11 sets, daily range): BP systolic 104–123; BP diastolic 63–70; PULSE 72–83; RESP 16–20; TEMP 36.3–36.6; O2SAT 95–98
[2025-08-11] MEDS: BETHANECHOL CHLORIDE 10 MG TABLET PO ×4 (05:27→22:42)
[2025-08-11 05:28] LABS: Hematocrit 37.6 % (37.0-47.0); Hemoglobin 12.4 g/dL (12.0-15.0); Mean Corpuscular HGB Conc 33.0 g/dl (32-36); Mean Corpuscular Hemoglobin 31.4 pg (26-34); Mean Corpuscular Volume 95.2 fl (80-100); Platelet Count Result 206 k/mm3 (150-375); Red Blood Count 3.95 M/mm3 (4.2-5.4); White Blood Count 5.9 K/mm3 (4.5-10.0)
[2025-08-11 05:40] LABS: Alanine Aminotransferase 31 U/L (6-35); Albumin Level 3.4 g/dL (3.5-5.1); Alkaline Phosphatase 117 U/L (38-126); Anion Gap 6 mmol/L (4-12); Aspartate Amino Transferase 21 U/L (14-36); Bilirubin,Total 0.4 mg/dL (0.2-1.3); Blood Urea Nitrogen 7 mg/dL (7-17); Calcium 8.8 mg/dL (8.4-10.2); Carbon Dioxide 26 mmol/L (22-30); Chloride 104 mmol/L (98-107); Estimated CRCL calculation 93 ml/min; Estimated Glomerular Filt Rate > 60; Glucose 90 mg/dL (65-110); Potassium 3.3 mmol/L (3.4-5.0); Sodium 136 mmol/L (137-145); Total Protein 6.2 g/dL (6.3-8.2)
[2025-08-11] MEDS: NICOTINE (*PBKC) 14 MG PATCH 1 PATCH TRANSDERM (08:55)
[2025-08-11] MEDS: TAMSULOSIN HCL 0.4 MG CAPSULE PO (08:55)
[2025-08-11] MEDS: LORATADINE 10 MG TABLET PO (08:55)
[2025-08-11] MEDS: FOLIC ACID 1 MG TABLET PO (08:55)
[2025-08-11] MEDS: METOPROLOL TARTRATE 50 MG TAB PO ×2 (08:55→22:42)
[2025-08-11] MEDS: ACETAMINOPHEN ELIXIR 325 MG/10.15 ML UDC PO (08:56)
[2025-08-11] MEDS: HYDROCORTISONE 1% 30 GM CREAM 1 APPLIC TOPICAL ×2 (08:56→22:43)
[2025-08-11] MEDS: POTASSIUM CHLORIDE 20 MEQ ER TABLET 40 MEQ PO (09:02)
--- NOTE | 2025-08-11 14:53 | PM.IMPN ---
Progress Note: A&P Assessment and Plan (1) ICH (intracerebral hemorrhage): Code(s): I61.9 - Nontraumatic intracerebral hemorrhage, unspecified Status: Acute (2) Seizure: Code(s): R56.9 - Unspecified convulsions Status: Acute Assessment and Plan: Brain MRI IMPRESSION: 1. Chronic encephalomalacia involving the left insula, left basal ganglia, and left frontal lobe deep white matter. Chronic hematoma involving the left basal ganglia and left insula. Plan Seizure after ICH, intracranial hematoma -patient had intracranial hemorrhage 07/10/25 and [facility] She has some deficiencies include right-sided deficit and dysarthria. Her stroke symptoms are improving however she had a seizure episode while at rehab -head CT with no acute finding, she had a recent head bleed, seizure from settled blood? Patient has not had any issues for several weeks. No sign of rebleed, no seizure history -EEG pending -brain MRI 08/08: Chronic encephalomalacia of the left insular, basal ganglia, frontal lobe. Chronic hematoma in left basal ganglia and left insula -awaiting Neurology consultation -IV fluids: NS at 100 cc/hour for now -loaded with Keppra, continue Keppra 750 mg p.o. b.i.d. as per Neurology -p.r.n. diazepam for seizures -seizure may be due to hemorrhagic stroke Diffuse rash, drug rash? -recently started on gabapentin, will discontinue for now -continue hydrocortisone cream for rash -started prednisone 40 mg p.o. q.d. for 5 days -rash may be a drug rash. Location is mostly on the back also on her arms, spread throughout body. On extremities more proximal Urinary retention, UTI -awaiting urine culture. Urinalysis concern for bacteria -antibiotics: Continue Rocephin for 3 day course for now despite being afebrile and no leukocytosis. Retention symptom may be from infection -continue bladder scan q.6 hours and straight cath for greater than 300 cc -retention appears to be a post stroke development -with urinary retention she is at increased risk for UTI Chronic conditions -recent intracranial hemorrhage: Developed while at [facility], was hospitalized out there for several weeks. No anticoagulation for a month. Continue PT OT speech therapy -nicotine dependence: Nicotine patch -urinary retention: Continue straight catheterization intermittent, on Flomax? -bowel regimen: Senokot, MiraLax -essential hypertension: Metoprolol -allergies: Claritin -supplements: Folic acid -chronic left axillary DVT: No anticoagulation with the ICH -narcolepsy: modafinil, had an episode of falling asleep while sitting upright 08/09/25 -history of basal cell carcinoma status post plastic surgery Diet: Heart healthy DVT prophylaxis: SCDs, no chemoprophylaxis recent intracranial hemorrhage Code status: Full code Disposition: Back to rehab tomorrow Social: updated bedside Subjective Date/time seen: 08/11/25 14:53 Interval history: Interval history: Kerry Jimenez is a 60 year old female with history of cerebral hemorrhage in the recent past for which she was treated in [place].Developed symptoms of paralysis on the right side and was taken to the local hospital. She was there for 16 days. 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 After stabilization she was referred to [place] [facility] where she was admitted on 07/26/2025 according to the records patient was found to have a left basal ganglia, external capsule intraparenchymal hemorrhage with intraventricular extension and 8 mm rightward midline shift and effacement of 3rd ventricles. It was noted the patient has history of hypertension and a smoking. The patient was taking care of at [facility]. When she was discharged from [facility] she was taken off Keppra since it was given as prophylaxis while she came in with a infarct and hemorrhage. The patient continues to have speech difficulties and is being evaluated by speech therapist. Patient was later admitted in [place] [facility]hab and was transferred to [facility] due to episodes of seizures. Neurology evaluated the patient. Patient is currently on Keppra 750 mg p.o. b.i.d.. 08/10: Patient underwent MBS and no signs of aspiration. Patient recently developed a rash and stopped modafinil and gabapentin. Started prednisone 40 mg p.o. q.d. for 5 days. 08/11: Patient rash is improving. Patient continues to participate in rehab. No evidence of breakthrough seizures. Review of Systems Review of Systems: 10 point ROS complete, negative other than what is specified in HPI. Exam Narrative: - GENERAL: Pleasant woman in no acute distress. falling asleep but arousable after several minutes. - EYES: EOMI. Anicteric. - HENT: Moist mucous membranes. - LUNGS: Clear to auscultation bilaterally, no wheezing, rhonchi, or rales. - CARDIOVASCULAR: Regular rate and rhythm. - ABDOMEN: Soft, non-tender and non-distended. No palpable masses. - EXTREMITIES: No edema. Peripheral pulses 2+. Non-tender. - NEUROLOGIC: Improvement of right lower extremity strength, dysarthria present - PSYCHIATRIC: cooperative - SKIN: Rash present throughout body including chest, back, lower extremities. Rash predominantly on back. Surgical scar from basal cell carcinoma of her nose - LYMPH: No cervical lymphadenopathy. Objective Data Vital Signs Vital Signs: Vital Signs - 24 hr 08/10/25 16:00 08/10/25 19:55 08/10/25 20:00 Temperature 97.6 F Pulse Rate 82 83 81 Respiratory Rate 18 Blood Pressure 125/65 Pulse Oximetry 95 Oxygen Delivery 08/10/25 20:00 08/10/25 22:16 08/11/25 00:00 Temperature Pulse Rate 83 74 Respiratory Rate Blood Pressure Pulse Oximetry Oxygen Delivery Room Air 08/11/25 04:00 08/11/25 04:09 08/11/25 08:00 Temperature 97.3 F L Pulse Rate 80 77 77 Respiratory Rate 18 Blood Pressure 123/70 Pulse Oximetry 97 Oxygen Delivery 08/11/25 08:55 08/11/25 10:00 08/11/25 12:00 Temperature Pulse Rate 77 76 Respiratory Rate Blood Pressure Pulse Oximetry Oxygen Delivery Room Air Intake/Output Intake/Output: Intake & Output 08/08/25 08/09/25 08/10/25 08/11/25 23:59 23:59 23:59 23:59 Intake Total 2530 1920 1070 600 Output Total 1950 1950 2800 900 Balance 670 -30 -1730 -300 Meds/Results Medications: Active Medications Generic Name Dose Route Start Last Admin Trade Name Freq PRN Reason Stop Dose Admin Acetaminophen 325 mg 08/07/25 17:53 08/11/25 08:56 Acetaminophen Elixir 325 Mg/10.15 Ml Udc PO 325 mg Q6H PRN Administration pain 1-3, mild Bethanechol Chloride 10 mg 08/07/25 21:00 08/11/25 13:05 Bethanechol Chloride 10 Mg Tablet PO 10 mg ACHS DEX Administration Diazepam 5 mg 11/15/25 17:18 Diazepam Inj (*Crx) 10 Mg/2 Ml Syringe IV PUSH Q6HR PRN Seizures Folic Acid 1 mg 08/08/25 09:00 08/11/25 08:55 Folic Acid 1 Mg Tablet PO 1 mg DAILY DEX Administration Hydrocortisone 1 applic 08/09/25 10:45 08/11/25 08:56 Hydrocortisone 1% 30 Gm Cream TOPICAL 1 applic Q12HR DEX Administration Levetiracetam 750 mg 08/09/25 21:00 08/11/25 08:55 Levetiracetam 250 Mg Tablet PO 750 mg Q12HR DEX Administration Loratadine 10 mg 08/08/25 09:00 08/11/25 08:55 Loratadine 10 Mg Tablet PO 10 mg QAM DEX Administration Melatonin 3 mg 08/07/25 21:00 08/10/25 22:16 Melatonin 3 Mg Tablet PO 3 mg HS DEX Administration Metoprolol Tartrate 50 mg 08/07/25 21:00 08/11/25 08:55 Metoprolol Tartrate 50 Mg Tab PO 50 mg Q12HR DEX Administration Nicotine 1 patch 08/08/25 09:00 08/11/25 08:55 Nicotine (*Pbkc) 14 Mg Patch TRANSDERM 1 patch DAILY DEX Administration Polyethylene Glycol 17 gm 08/08/25 09:00 08/11/25 08:54 Polyethylene Glycol 3350 17 Gm Powd.Pack PO 17 gm QAM DEX Administration Prednisone 40 mg 08/10/25 08:00 08/11/25 08:55 Prednisone 20 Mg Tablet PO 08/14/25 08:01 40 mg DAILY@0800 DEX Administration Senna 8.6 mg 08/07/25 21:00 08/10/25 22:16 Sennosides 8.6 Mg Tablet PO 8.6 mg HS DEX Administration Tamsulosin HCl 0.4 mg 08/08/25 09:00 08/11/25 08:55 Tamsulosin Hcl 0.4 Mg Capsule PO 0.4 mg DAILY DEX Administration Radiology Results: ITS Impressions Head CT 08/07/25 10:29 IMPRESSION: 1. No acute intracranial findings. Chest X-Ray 08/07/25 10:33 IMPRESSION: 1. Recommend CT chest with contrast to exclude perihilar abnormality. 2. No acute abnormality. Venous Doppler Study 08/07/25 12:18 IMPRESSION: 1. No left upper extremity DVT. Chest CT 08/07/25 14:29 IMPRESSION: Unremarkable exam. There is no hilar mass identified. Brain MRI 08/08/25 12:31 IMPRESSION: 1. Chronic encephalomalacia involving the left insula, left basal ganglia, and left frontal lobe deep white matter. Chronic hematoma involving the left basal ganglia and left insula. Modified Barium Swallow 08/10/25 14:11 IMPRESSION: No aspiration observed. See also speech therapist's notes for complete details. Labs Labs: Laboratory Results - last 24 hr 08/11/25 04:36 WBC 5.9 RBC 3.95 L Hgb 12.4 Hct 37.6 MCV 95.2 MCH 31.4 MCHC 33.0 RDW 12.6 Plt Count 206 MPV 10.3 Sodium 136 L Potassium 3.3 L Chloride 104 Carbon Dioxide 26 Anion Gap 6 BUN 7 Creatinine 0.49 L Estim Creat Clear Calc 93 Estimated GFR > 60 Glucose 90 Calcium 8.8 Total Bilirubin 0.4 AST 21 ALT 31 Alkaline Phosphatase 117 Total Protein 6.2 L Albumin 3.4 L Quality VTE Prophylaxis VTE prophylaxis: mechanical ordered Hospitalist [facility] Advance Care Plan I have confirmed that the patient's Advanced Care Plan is present, code status is documented, or surrogate decision maker is listed in patient medical record.: Yes Medication Reconciliation I have utilized all available resources to obtain, update and review the patients current medications (includes all prescriptions, OTC, herbals, cannabis, and nutritional supplements).: Yes
--- NOTE | 2025-08-11 20:07 | PM.EVENT ---
Event Note Event Note Event Note: Urine cultures were resulted. Repeat UA. The patient has symptoms of urinary retention and a [place] catheter is placed. According to the culture and sensitivity the cephalosporins may not be sensitive to Enterococcus faecalis. The patient was started on p.o. Cipro p.o.
--- NOTE | 2025-08-11 20:30 | PC.NURSE ---
Katty Rodriguez notified final urine culture (verified/posted 08/11 1334) does not list susceptibility for rocephin (which pt had completed final dose 08/10), but does state cephalosporins may not be effective against Enterococcus faecalis. Repeat UA ordered and Cipro ordered to start tonight.
[2025-08-11 21:21] LABS: Add Urine Microscopic? YES; Appearance Urine Cloudy (Clear); Glucose Urine UA Negative (Negative); Leukocyte Esterase Ur 1+ LEU/UL (Negative); Need Manual Microscopic Reviewed; Nitrate Urine Negative (Negative); Non Pathogenic Casts 0-2; Specific Grav Ur 1.016 (1.001-1.035)
[2025-08-11] MEDS: CIPROFLOXACIN 500 MG TAB PO (22:42)
[2025-08-11] MEDS: SENNOSIDES 8.6 MG TABLET PO (22:42)
[2025-08-11] MEDS: MELATONIN 3 MG TABLET PO (22:42)
[2025-08-11] MEDS: HYOSCYAMINE SULFATE 0.125 MG TABLET PO (23:00)
[2025-08-12] VITALS (10 sets, daily range): BP systolic 105–109; BP diastolic 61–65; PULSE 70–82; RESP 16–18; TEMP 36.5–36.6; O2SAT 95–98
[2025-08-12 05:16] LABS: Hematocrit 38.8 % (37.0-47.0); Hemoglobin 12.5 g/dL (12.0-15.0); Mean Corpuscular HGB Conc 32.2 g/dl (32-36); Mean Corpuscular Hemoglobin 31.0 pg (26-34); Mean Corpuscular Volume 96.3 fl (80-100); Platelet Count Result 232 k/mm3 (150-375); Red Blood Count 4.03 M/mm3 (4.2-5.4); White Blood Count 6.0 K/mm3 (4.5-10.0)
[2025-08-12 05:40] LABS: Alanine Aminotransferase 33 U/L (6-35); Albumin Level 3.5 g/dL (3.5-5.1); Alkaline Phosphatase 103 U/L (38-126); Anion Gap 5 mmol/L (4-12); Aspartate Amino Transferase 24 U/L (14-36); Bilirubin,Total 0.4 mg/dL (0.2-1.3); Blood Urea Nitrogen 9 mg/dL (7-17); Calcium 8.8 mg/dL (8.4-10.2); Carbon Dioxide 25 mmol/L (22-30); Chloride 106 mmol/L (98-107); Estimated CRCL calculation 100 ml/min; Estimated Glomerular Filt Rate > 60; Glucose 85 mg/dL (65-110); Potassium 3.7 mmol/L (3.4-5.0); Sodium 136 mmol/L (137-145); Total Protein 6.2 g/dL (6.3-8.2)
[2025-08-12] MEDS: BETHANECHOL CHLORIDE 10 MG TABLET PO ×4 (06:58→20:21)
[2025-08-12] MEDS: NICOTINE (*PBKC) 14 MG PATCH 1 PATCH TRANSDERM (08:02)
[2025-08-12] MEDS: FOLIC ACID 1 MG TABLET PO (08:03)
[2025-08-12] MEDS: LORATADINE 10 MG TABLET PO (08:03)
[2025-08-12] MEDS: TAMSULOSIN HCL 0.4 MG CAPSULE PO (08:03)
[2025-08-12] MEDS: METOPROLOL TARTRATE 50 MG TAB PO ×2 (08:03→20:21)
[2025-08-12] MEDS: CIPROFLOXACIN 500 MG TAB PO ×2 (08:03→20:21)
[2025-08-12] MEDS: HYDROCORTISONE 1% 30 GM CREAM 1 APPLIC TOPICAL (08:04)
--- NOTE | 2025-08-12 11:36 | PCNFU ---
Nutrition Follow-Up Complete: Swallowing difficulty related to recent cerebral hemorrhage as evidenced by speech report of L5 Minced & moist diet with L2 mildly thickened liquids at rehab Goal: Textures appropriate for patient needs Intakes >75% Patient will continue current diet order. Pt current nutrition is Heart Healthy with diet supplements. Last recorded weight is 59.6 kg, stable Bowel Motility: Last reported BM 08/08 Labs Reviewed:Cr 0.45, Na 136 Meds Noted: Senna, Folic Acid, Keppra, Lopressor Skin: WNL Additional Notes: Patient had MBS on 08/10. Diet order advanced to a heart healthy diet. Oral Intake has been fair 15-40% of most meals. Diet supplements have been added for an additional 240 kcal and 10 gm protein. Agree with diet orders. Monitoring swallowing abilities, orders, weights, labs, intakes, plan of care Follow up in 3 days
--- NOTE | 2025-08-12 12:17 | PM.IMPN ---
Progress Note: A&P Assessment and Plan (1) ICH (intracerebral hemorrhage): Code(s): I61.9 - Nontraumatic intracerebral hemorrhage, unspecified Status: Acute (2) Seizure: Code(s): R56.9 - Unspecified convulsions Status: Acute Assessment and Plan: Brain MRI IMPRESSION: 1. Chronic encephalomalacia involving the left insula, left basal ganglia, and left frontal lobe deep white matter. Chronic hematoma involving the left basal ganglia and left insula. Plan Seizure after ICH, intracranial hematoma -patient had intracranial hemorrhage 07/10/25 [facility] She has some deficiencies include right-sided deficit and dysarthria. Her stroke symptoms are improving however she had a seizure episode while at rehab -head CT with no acute finding, she had a recent head bleed, seizure from settled blood? Patient has not had any issues for several weeks. No sign of rebleed, no seizure history -EEG pending -brain MRI 08/08: Chronic encephalomalacia of the left insular, basal ganglia, frontal lobe. Chronic hematoma in left basal ganglia and left insula -awaiting Neurology consultation -IV fluids: NS at 100 cc/hour for now -loaded with Keppra, continue Keppra 750 mg p.o. b.i.d. as per Neurology -p.r.n. diazepam for seizures -seizure may be due to hemorrhagic stroke Diffuse rash, drug rash? -recently started on gabapentin, will discontinue for now -continue hydrocortisone cream for rash -increased strength from 1% to 2.5 -started prednisone 40 mg p.o. q.d. for 5 days -rash may be a drug rash. Location is mostly on the back also on her arms, spread throughout body. On extremities more proximal Urinary retention, UTI -awaiting urine culture. Urinalysis concern for bacteria -antibiotics: Continue Rocephin for 3 day course for now despite being afebrile and no leukocytosis. Retention symptom may be from infection -continue bladder scan q.6 hours and straight cath for greater than 300 cc -retention appears to be a post stroke development -with urinary retention she is at increased risk for UTI Chronic conditions -recent intracranial hemorrhage: Developed while at [facility], was hospitalized out there for several weeks. No anticoagulation for a month. Continue PT OT speech therapy -nicotine dependence: Nicotine patch -urinary retention: Continue straight catheterization intermittent, on Flomax? -bowel regimen: Senokot, MiraLax -essential hypertension: Metoprolol -allergies: Claritin -supplements: Folic acid -chronic left axillary DVT: No anticoagulation with the ICH -narcolepsy: modafinil, had an episode of falling asleep while sitting upright 08/09/25 -history of basal cell carcinoma status post plastic surgery Diet: Heart healthy DVT prophylaxis: SCDs, no chemoprophylaxis recent intracranial hemorrhage Code status: Full code Disposition: Back to rehab tomorrow Social: updated bedside Subjective Date/time seen: 08/12/25 12:17 Interval history: Interval history: Kerry Jimenez is a 60 year old female with history of cerebral hemorrhage in the recent past for which she was treated in [place].Developed symptoms of paralysis on the right side and was taken to the local hospital. She was there for 16 days. 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 After stabilization she was referred to [facility] where she was admitted on 07/26/2025 according to the records patient was found to have a left basal ganglia, external capsule intraparenchymal hemorrhage with intraventricular extension and 8 mm rightward midline shift and effacement of 3rd ventricles. It was noted the patient has history of hypertension and a smoking. The patient was taking care of at [facility]. When she was discharged from [facility] she was taken off Keppra since it was given as prophylaxis while she came in with a infarct and hemorrhage. The patient continues to have speech difficulties and is being evaluated by speech therapist. Patient was later admitted in [facility] and was transferred to [facility] due to episodes of seizures. Neurology evaluated the patient. Patient is currently on Keppra 750 mg p.o. b.i.d.. 08/10: Patient underwent MBS and no signs of aspiration. Patient recently developed a rash and stopped modafinil and gabapentin. Started prednisone 40 mg p.o. q.d. for 5 days. 08/11: Patient rash is improving. Patient continues to participate in rehab. No evidence of breakthrough seizures. 08/12: No breakthrough seizures. Increased hydrocortisone cream from 1% to 2.5. Monitor rash Review of Systems Review of Systems: 10 point ROS complete, negative other than what is specified in HPI. Exam Narrative: - GENERAL: Pleasant woman in no acute distress. falling asleep but arousable after several minutes. - EYES: EOMI. Anicteric. - HENT: Moist mucous membranes. - LUNGS: Clear to auscultation bilaterally, no wheezing, rhonchi, or rales. - CARDIOVASCULAR: Regular rate and rhythm. - ABDOMEN: Soft, non-tender and non-distended. No palpable masses. - EXTREMITIES: No edema. Peripheral pulses 2+. Non-tender. - NEUROLOGIC: Improvement of right lower extremity strength, dysarthria present - PSYCHIATRIC: cooperative - SKIN: Rash present throughout body including chest, back, lower extremities. Rash predominantly on back. Surgical scar from basal cell carcinoma of her nose - LYMPH: No cervical lymphadenopathy. Objective Data Vital Signs Vital Signs: Vital Signs - 24 hr 08/11/25 14:00 08/11/25 16:00 08/11/25 20:00 Temperature 97.8 F Pulse Rate 72 73 76 Respiratory Rate 16 Blood Pressure 113/68 Pulse Oximetry 98 Oxygen Delivery 08/11/25 20:00 08/11/25 20:09 08/11/25 22:42 Temperature 97.5 F L Pulse Rate 83 83 Respiratory Rate 20 Blood Pressure 104/63 Pulse Oximetry 95 Oxygen Delivery Room Air 08/12/25 00:00 08/12/25 04:00 08/12/25 04:44 Temperature 97.9 F Pulse Rate 75 75 81 Respiratory Rate 16 Blood Pressure 107/64 Pulse Oximetry 98 Oxygen Delivery 08/12/25 08:00 08/12/25 08:00 08/12/25 08:03 Temperature Pulse Rate 70 71 Respiratory Rate Blood Pressure Pulse Oximetry 98 Oxygen Delivery Room Air Intake/Output Intake/Output: Intake & Output 08/09/25 08/10/25 08/11/25 08/12/25 23:59 23:59 23:59 23:59 Intake Total 1920 1070 840 510 Output Total 3636 3454 907 450 Balance -30 -1730 -110 60 Meds/Results Medications: Active Medications Generic Name Dose Route Start Last Admin Trade Name Freq PRN Reason Stop Dose Admin Acetaminophen 325 mg 08/07/25 17:53 08/11/25 08:56 Acetaminophen Elixir 325 Mg/10.15 Ml Udc PO 325 mg Q6H PRN Administration pain 1-3, mild Bethanechol Chloride 10 mg 08/07/25 21:00 08/12/25 11:07 Bethanechol Chloride 10 Mg Tablet PO 10 mg ACHS DEX Administration Ciprofloxacin 500 mg 08/11/25 21:00 08/12/25 08:03 Ciprofloxacin 500 Mg Tab PO 500 mg Q12HR DEX Administration Diazepam 5 mg 08/07/25 17:18 Diazepam Inj (*Crx) 10 Mg/2 Ml Syringe IV PUSH Q6HR PRN Seizures Folic Acid 1 mg 08/08/25 09:00 08/12/25 08:03 Folic Acid 1 Mg Tablet PO 1 mg DAILY DEX Administration Hydrocortisone 1 applic 08/12/25 21:00 Hydrocortisone 2.5% Cream 30 Gm Tube TOPICAL Q12HR DEX Hyoscyamine 0.125 mg 08/11/25 22:32 08/11/25 23:00 Hyoscyamine Sulfate 0.125 Mg Tablet PO 0.125 mg Q4H PRN Administration Bladder Spasm Levetiracetam 750 mg 08/09/25 21:00 08/12/25 08:04 Levetiracetam 250 Mg Tablet PO 750 mg Q12HR DEX Administration Loratadine 10 mg 08/08/25 09:00 08/12/25 08:03 Loratadine 10 Mg Tablet PO 10 mg QAM DEX Administration Melatonin 3 mg 08/07/25 21:00 08/11/25 22:42 Melatonin 3 Mg Tablet PO 3 mg HS DEX Administration Metoprolol Tartrate 50 mg 08/07/25 21:00 08/12/25 08:03 Metoprolol Tartrate 50 Mg Tab PO 50 mg Q12HR DEX Administration Nicotine 1 patch 08/08/25 09:00 08/12/25 08:02 Nicotine (*Pbkc) 14 Mg Patch TRANSDERM 1 patch DAILY DEX Administration Polyethylene Glycol 17 gm 08/08/25 09:00 08/12/25 08:02 Polyethylene Glycol 3350 17 Gm Powd.Pack PO 17 gm QAM DEX Administration Prednisone 40 mg 08/10/25 08:00 08/12/25 08:03 Prednisone 20 Mg Tablet PO 08/14/25 08:01 40 mg DAILY@0800 DEX Administration Senna 8.6 mg 08/07/25 21:00 08/11/25 22:42 Sennosides 8.6 Mg Tablet PO 8.6 mg HS DEX Administration Tamsulosin HCl 0.4 mg 08/08/25 09:00 08/12/25 08:03 Tamsulosin Hcl 0.4 Mg Capsule PO 0.4 mg DAILY DEX Administration Radiology Results: ITS Impressions Head CT 08/07/25 10:29 IMPRESSION: 1. No acute intracranial findings. Chest X-Ray 08/07/25 10:33 IMPRESSION: 1. Recommend CT chest with contrast to exclude perihilar abnormality. 2. No acute abnormality. Venous Doppler Study 08/07/25 12:18 IMPRESSION: 1. No left upper extremity DVT. Chest CT 08/07/25 14:29 IMPRESSION: Unremarkable exam. There is no hilar mass identified. Brain MRI 08/08/25 12:31 IMPRESSION: 1. Chronic encephalomalacia involving the left insula, left basal ganglia, and left frontal lobe deep white matter. Chronic hematoma involving the left basal ganglia and left insula. Modified Barium Swallow 08/10/25 14:11 IMPRESSION: No aspiration observed. See also speech therapist's notes for complete details. Labs Labs: Laboratory Results - last 24 hr 08/11/25 08/12/25 20:58 04:31 WBC 6.0 RBC 4.03 L Hgb 12.5 Hct 38.8 MCV 96.3 MCH 31.0 MCHC 32.2 RDW 12.5 Plt Count 232 MPV 10.4 Sodium 136 L Potassium 3.7 Chloride 106 Carbon Dioxide 25 Anion Gap 5 BUN 9 Creatinine 0.45 L Estim Creat Clear Calc 100 Estimated GFR > 60 Glucose 85 Calcium 8.8 Total Bilirubin 0.4 AST 24 ALT 33 Alkaline Phosphatase 103 Total Protein 6.2 L Albumin 3.5 Urine Color Yellow Urine Appearance Cloudy H Urine pH 7.0 Ur Specific [place] 1.016 Urine Protein Negative Urine Glucose (UA) Negative Urine Ketones Negative Ur Blood (Man) Negative Urine Nitrate Negative Urine Bilirubin Negative Urine Urobilinogen 0.2 Add Ur Microanalysis Reviewed Leukocyte Esterase Rfl 1+ H Urine RBC 3-5 H Urine WBC 0-5 Ur Squamous Epith Cells None seen Urine Bacteria None seen Urine Casts 0-2 Quality VTE Prophylaxis VTE prophylaxis: mechanical ordered Hospitalist [facility] Advance Care Plan I have confirmed that the patient's Advanced Care Plan is present, code status is documented, or surrogate decision maker is listed in patient medical record.: Yes Medication Reconciliation I have utilized all available resources to obtain, update and review the patients current medications (includes all prescriptions, OTC, herbals, cannabis, and nutritional supplements).: Yes
--- NOTE | 2025-08-12 17:27 | P.PNNEUR_ITS ---
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 She is currently on Keppra 750 mg twice a day and he should continue the same. (4) HTN (hypertension): Code(s): I10 - Essential (primary) hypertension Status: Acute (5) Urinary retention: Code(s): R33.9 - Retention of urine, unspecified Status: Acute (6) Smoker: Code(s): F17.200 - Nicotine dependence, unspecified, uncomplicated Status: Acute Time Spent With Patient Time: The etiology of the rash is unclear. I spoke to the nursing staff and went over some of the medications to see which of the medications can be taken away. She was on Provigil and I had talked to her that she was started on this because her drowsiness after she had a brain cerebral hemorrhage. I would advise to stop it. Hospitalist team is working regarding the rash. With regard to the stroke due to intracranial hemorrhage close control of the blood pressure is being done as before. She should continue to work with a physical therapist and speech therapist. She is being treated with Cipro for possible urinary tract infection. Subjective Date/time seen: 08/12/25 17:27 Interval history: The patient is 60-year-old with history of left her hemorrhagic stroke approximately 3 weeks ago admitted to the hospital with seizures and now on Keppra. Since admitted on 08/07/2025. She has not developed retention of urine and has been seen by urologist who felt that is may be due to the fact that she recently had a stroke. She is also being investigated for possible urinary infection. She is working with physical therapy and speech therapist she still continues to have the rash all over the body which is only more intense than before the reason for this has not been clear. Review of Systems Review of Systems: ROS unobtainable: Yes other ( Due to mixed aphasia) Exam Narrative: fully conscious alert. She has mixed receptive and expressive aphasia no she does try to talk and do several things during the course of conversation. She does skip administrative assistant receptionist as well as finding the right words on many occasions. She speaks with a low volume. Examination head and neck shows mild flattening of the right nasolabial fold. Significant weakness of the right upper limb and moderate weakness right lower limb. No involuntary movements are seen. No other new findings rash was seen all over the body. Objective Data Vital Signs Vital Signs: Vital Signs - 24 hr 08/11/25 20:00 08/11/25 20:00 08/11/25 20:09 Temperature 97.5 F L Pulse Rate 76 83 Respiratory Rate 20 Blood Pressure 104/63 Pulse Oximetry 95 Oxygen Delivery Room Air 08/11/25 22:42 08/12/25 00:00 08/12/25 04:00 Temperature Pulse Rate 83 75 75 Respiratory Rate Blood Pressure Pulse Oximetry Oxygen Delivery 08/12/25 04:44 08/12/25 08:00 08/12/25 08:00 Temperature 97.9 F Pulse Rate 81 70 Respiratory Rate 16 Blood Pressure 107/64 Pulse Oximetry 98 98 Oxygen Delivery Room Air 08/12/25 08:03 08/12/25 14:00 08/12/25 16:00 Temperature 98 F Pulse Rate 71 80 77 Respiratory Rate 18 Blood Pressure 105/65 Pulse Oximetry 97 Oxygen Delivery Intake/Output Intake/Output: Intake & Output 08/09/25 08/10/25 08/11/25 08/12/25 23:59 23:59 23:59 23:59 Intake Total 1920 8290 112 0411 Output Total 1950 2800 950 950 Balance -30 -1730 -110 1010 Meds/Results Medications: Active Medications Generic Name Dose Route Start Last Admin Trade Name Freq PRN Reason Stop Dose Admin Acetaminophen 325 mg 08/07/25 17:53 08/11/25 08:56 Acetaminophen Elixir 325 Mg/10.15 Ml Udc PO 325 mg Q6H PRN Administration pain 1-3, mild Bethanechol Chloride 10 mg 08/07/25 21:00 08/12/25 16:02 Bethanechol Chloride 10 Mg Tablet PO 10 mg ACHS DEX Administration Ciprofloxacin 500 mg 08/11/25 21:00 08/12/25 08:03 Ciprofloxacin 500 Mg Tab PO 500 mg Q12HR DEX Administration Diazepam 5 mg 08/07/25 17:18 Diazepam Inj (*Crx) 10 Mg/2 Ml Syringe IV PUSH Q6HR PRN Seizures Folic Acid 1 mg 08/08/25 09:00 08/12/25 08:03 Folic Acid 1 Mg Tablet PO 1 mg DAILY DEX Administration Hydrocortisone 1 applic 08/12/25 21:00 Hydrocortisone 2.5% Cream 30 Gm Tube TOPICAL Q12HR DEX Hyoscyamine 0.125 mg 08/11/25 22:32 08/11/25 23:00 Hyoscyamine Sulfate 0.125 Mg Tablet PO 0.125 mg Q4H PRN Administration Bladder Spasm Levetiracetam 750 mg 08/09/25 21:00 08/12/25 08:04 Levetiracetam 250 Mg Tablet PO 750 mg Q12HR DEX Administration Loratadine 10 mg 08/08/25 09:00 08/12/25 08:03 Loratadine 10 Mg Tablet PO 10 mg QAM DEX Administration Melatonin 3 mg 08/07/25 21:00 08/11/25 22:42 Melatonin 3 Mg Tablet PO 3 mg HS [facility] Administration Metoprolol Tartrate 50 mg 08/07/25 21:00 08/12/25 08:03 Metoprolol Tartrate 50 Mg Tab PO 50 mg Q12HR DEX Administration Nicotine 1 patch 08/08/25 09:00 08/12/25 08:02 Nicotine (*Pbkc) 14 Mg Patch TRANSDERM 1 patch DAILY DEX Administration Polyethylene Glycol 17 gm 08/08/25 09:00 08/12/25 08:02 Polyethylene Glycol 3350 17 Gm Powd.Pack PO 17 gm QAM DEX Administration Prednisone 40 mg 08/10/25 08:00 08/12/25 08:03 Prednisone 20 Mg Tablet PO 08/14/25 08:01 40 mg DAILY@0800 [facility] Administration Senna 8.6 mg 08/07/25 21:00 08/11/25 22:42 Sennosides 8.6 Mg Tablet PO 8.6 mg HS DEX Administration Tamsulosin HCl 0.4 mg 08/08/25 09:00 08/12/25 08:03 Tamsulosin Hcl 0.4 Mg Capsule PO 0.4 mg DAILY DEX Administration Radiology Results: ITS Impressions Head CT 08/07/25 10:29 IMPRESSION: 1. No acute intracranial findings. Chest X-Ray 08/07/25 10:33 IMPRESSION: 1. Recommend CT chest with contrast to exclude perihilar abnormality. 2. No acute abnormality. Venous Doppler Study 08/07/25 12:18 IMPRESSION: 1. No left upper extremity DVT. Chest CT 08/07/25 14:29 IMPRESSION: Unremarkable exam. There is no hilar mass identified. Brain MRI 08/08/25 12:31 IMPRESSION: 1. Chronic encephalomalacia involving the left insula, left basal ganglia, and left frontal lobe deep white matter. Chronic hematoma involving the left basal ganglia and left insula. Modified Barium Swallow 08/10/25 14:11 IMPRESSION: No aspiration observed. See also speech therapist's notes for complete details. Labs Labs: Laboratory Results - last 24 hr 08/11/25 08/12/25 20:58 04:31 WBC 6.0 RBC 4.03 L Hgb 12.5 Hct 38.8 MCV 96.3 MCH 31.0 MCHC 32.2 RDW 12.5 Plt Count 232 MPV 10.4 Sodium 136 L Potassium 3.7 Chloride 106 Carbon Dioxide 25 Anion Gap 5 BUN 9 Creatinine 0.45 L Estim Creat Clear Calc 100 Estimated GFR > 60 Glucose 85 Calcium 8.8 Total Bilirubin 0.4 AST 24 ALT 33 Alkaline Phosphatase 103 Total Protein 6.2 L Albumin 3.5 Urine Color Yellow Urine Appearance Cloudy H Urine pH 7.0 Ur Specific Miranda 1.016 Urine Protein Negative Urine Glucose (UA) Negative Urine Ketones Negative Ur Blood (Man) Negative Urine Nitrate Negative Urine Bilirubin Negative Urine Urobilinogen 0.2 Add Ur Microanalysis Reviewed Leukocyte Esterase Rfl 1+ H Urine RBC 3-5 H Urine WBC 0-5 Ur Squamous Epith Cells None seen Urine Bacteria None seen Urine Casts 0-2
[2025-08-12 19:16] LABS: Cholesterol 196 mg/dL (0-200); HDL Direct 43 mg/dL; Triglycerides 89 mg/dL (<150)
[2025-08-12] MEDS: SENNOSIDES 8.6 MG TABLET PO (20:21)
[2025-08-12] MEDS: HYDROCORTISONE 2.5% CREAM 30 GM TUBE 1 APPLIC TOPICAL (20:22)
[2025-08-12] MEDS: MELATONIN 3 MG TABLET PO (20:22)
[2025-08-13] VITALS (11 sets, daily range): BP systolic 98–122; BP diastolic 55–70; PULSE 72–87; RESP 14–16; TEMP 36.1–36.7; O2SAT 96–97
[2025-08-13] MEDS: HYDROCORTISONE 2.5% CREAM 30 GM TUBE 1 APPLIC TOPICAL ×2 (08:08→20:08)
[2025-08-13] MEDS: NICOTINE (*PBKC) 14 MG PATCH 1 PATCH TRANSDERM (08:08)
[2025-08-13] MEDS: LORATADINE 10 MG TABLET PO (08:09)
[2025-08-13] MEDS: METOPROLOL TARTRATE 50 MG TAB PO ×2 (08:09→20:08)
[2025-08-13] MEDS: TAMSULOSIN HCL 0.4 MG CAPSULE PO (08:09)
[2025-08-13] MEDS: FOLIC ACID 1 MG TABLET PO (08:10)
[2025-08-13] MEDS: CIPROFLOXACIN 500 MG TAB PO ×2 (08:10→20:08)
[2025-08-13] MEDS: BETHANECHOL CHLORIDE 10 MG TABLET PO ×3 (11:17→20:08)
--- NOTE | 2025-08-13 12:30 | PM.IMPN ---
Progress Note: A&P Assessment and Plan (1) ICH (intracerebral hemorrhage): Code(s): I61.9 - Nontraumatic intracerebral hemorrhage, unspecified Status: Acute (2) Seizure: Code(s): R56.9 - Unspecified convulsions Status: Acute Assessment and Plan: Brain MRI IMPRESSION: 1. Chronic encephalomalacia involving the left insula, left basal ganglia, and left frontal lobe deep white matter. Chronic hematoma involving the left basal ganglia and left insula. Plan Seizure after ICH, intracranial hematoma -patient had intracranial hemorrhage 07/10/25 and [facility] She has some deficiencies include right-sided deficit and dysarthria. Her stroke symptoms are improving however she had a seizure episode while at rehab -head CT with no acute finding, she had a recent head bleed, seizure from settled blood? Patient has not had any issues for several weeks. No sign of rebleed, no seizure history -EEG pending -brain MRI 08/08: Chronic encephalomalacia of the left insular, basal ganglia, frontal lobe. Chronic hematoma in left basal ganglia and left insula -awaiting Neurology consultation -IV fluids: NS at 100 cc/hour for now -loaded with Keppra, continue Keppra 750 mg p.o. b.i.d. as per Neurology -p.r.n. diazepam for seizures -seizure may be due to hemorrhagic stroke Diffuse rash, drug rash? -recently started on gabapentin, will discontinue for now -continue hydrocortisone cream for rash -increased strength from 1% to 2.5 -started prednisone 40 mg p.o. q.d. for 5 days -rash may be a drug rash. Location is mostly on the back also on her arms, spread throughout body. On extremities more proximal Urinary retention, UTI -awaiting urine culture. Urinalysis concern for bacteria -antibiotics: Continue Rocephin for 3 day course for now despite being afebrile and no leukocytosis. Retention symptom may be from infection -continue bladder scan q.6 hours and straight cath for greater than 300 cc -retention appears to be a post stroke development -with urinary retention she is at increased risk for UTI Chronic conditions -recent intracranial hemorrhage: Developed while at [facility], was hospitalized out there for several weeks. No anticoagulation for a month. Continue PT OT speech therapy -nicotine dependence: Nicotine patch -urinary retention: Continue straight catheterization intermittent, on Flomax? -bowel regimen: Senokot, MiraLax -essential hypertension: Metoprolol -allergies: Claritin -supplements: Folic acid -chronic left axillary DVT: No anticoagulation with the ICH -narcolepsy: modafinil, had an episode of falling asleep while sitting upright 08/09/25 -history of basal cell carcinoma status post plastic surgery Diet: Heart healthy DVT prophylaxis: SCDs, no chemoprophylaxis recent intracranial hemorrhage Code status: Full code Disposition: Back to rehab tomorrow Social: updated bedside Subjective Date/time seen: 08/13/25 12:30 Interval history: Rash is getting better. No breakthrough seizures Review of Systems Review of Systems: 10 point ROS complete, negative other than what is specified in HPI. Exam Narrative: - GENERAL: Pleasant woman in no acute distress. falling asleep but arousable after several minutes. - EYES: EOMI. Anicteric. - HENT: Moist mucous membranes. - LUNGS: Clear to auscultation bilaterally, no wheezing, rhonchi, or rales. - CARDIOVASCULAR: Regular rate and rhythm. - ABDOMEN: Soft, non-tender and non-distended. No palpable masses. - EXTREMITIES: No edema. Peripheral pulses 2+. Non-tender. - NEUROLOGIC: Improvement of right lower extremity strength, dysarthria present - PSYCHIATRIC: cooperative - SKIN: Rash present throughout body including chest, back, lower extremities. Rash predominantly on back. Surgical scar from basal cell carcinoma of her nose - LYMPH: No cervical lymphadenopathy. Objective Data Vital Signs Vital Signs: Vital Signs - 24 hr 08/12/25 14:00 08/12/25 16:00 08/12/25 20:00 Temperature 98 F Pulse Rate 80 77 Respiratory Rate 18 Blood Pressure 105/65 Pulse Oximetry 97 Oxygen Delivery Room Air 08/12/25 20:00 08/12/25 20:21 08/12/25 20:45 Temperature 97.7 F Pulse Rate 79 82 81 Respiratory Rate 18 Blood Pressure 109/61 Pulse Oximetry 95 Oxygen Delivery 08/13/25 00:00 08/13/25 04:00 08/13/25 04:17 Temperature 96.9 F L Pulse Rate 76 73 75 Respiratory Rate 16 Blood Pressure 122/70 Pulse Oximetry 97 Oxygen Delivery 08/13/25 08:00 08/13/25 08:00 08/13/25 08:09 Temperature Pulse Rate 73 72 Respiratory Rate Blood Pressure Pulse Oximetry 97 Oxygen Delivery Room Air 08/13/25 12:00 Temperature Pulse Rate 77 Respiratory Rate Blood Pressure Pulse Oximetry Oxygen Delivery Intake/Output Intake/Output: Intake & Output 08/10/25 08/11/25 08/12/25 08/13/25 23:59 23:59 23:59 23:59 Intake Total 7204 464 5797 730 Output Total 2800 950 950 400 Balance -1730 -110 1130 330 Meds/Results Medications: Active Medications Generic Name Dose Route Start Last Admin Trade Name Freq PRN Reason Stop Dose Admin Acetaminophen 325 mg 08/07/25 17:53 08/11/25 08:56 Acetaminophen Elixir 325 Mg/10.15 Ml Udc PO 325 mg Q6H PRN Administration pain 1-3, mild Bethanechol Chloride 10 mg 08/07/25 21:00 08/13/25 11:17 Bethanechol Chloride 10 Mg Tablet PO 10 mg ACHS DEX Administration Ciprofloxacin 500 mg 08/11/25 21:00 08/13/25 08:10 Ciprofloxacin 500 Mg Tab PO 500 mg Q12HR DEX Administration Diazepam 5 mg 08/07/25 17:18 Diazepam Inj (*Crx) 10 Mg/2 Ml Syringe IV PUSH Q6HR PRN Seizures Folic Acid 1 mg 08/08/25 09:00 08/13/25 08:10 Folic Acid 1 Mg Tablet PO 1 mg DAILY DEX Administration Hydrocortisone 1 applic 08/12/25 21:00 08/13/25 08:08 Hydrocortisone 2.5% Cream 30 Gm Tube TOPICAL 1 applic Q12HR DEX Administration Hyoscyamine 0.125 mg 08/11/25 22:32 08/11/25 23:00 Hyoscyamine Sulfate 0.125 Mg Tablet PO 0.125 mg Q4H PRN Administration Bladder Spasm Levetiracetam 750 mg 08/09/25 21:00 08/13/25 08:09 Levetiracetam 250 Mg Tablet PO 750 mg Q12HR DEX Administration Loratadine 10 mg 08/08/25 09:00 08/13/25 08:09 Loratadine 10 Mg Tablet PO 10 mg QAM DEX Administration Melatonin 3 mg 08/07/25 21:00 08/12/25 20:22 Melatonin 3 Mg Tablet PO 3 mg HS DEX Administration Metoprolol Tartrate 50 mg 08/07/25 21:00 08/13/25 08:09 Metoprolol Tartrate 50 Mg Tab PO 50 mg Q12HR DEX Administration Nicotine 1 patch 08/08/25 09:00 08/13/25 08:08 Nicotine (*Pbkc) 14 Mg Patch TRANSDERM 1 patch DAILY DEX Administration Polyethylene Glycol 17 gm 08/08/25 09:00 08/13/25 08:09 Polyethylene Glycol 3350 17 Gm Powd.Pack PO 17 gm QAM DEX Administration Prednisone 40 mg 08/10/25 08:00 08/13/25 08:10 Prednisone 20 Mg Tablet PO 08/14/25 08:01 40 mg DAILY@0800 DEX Administration Senna 8.6 mg 08/07/25 21:00 08/12/25 20:21 Sennosides 8.6 Mg Tablet PO 8.6 mg HS DEX Administration Tamsulosin HCl 0.4 mg 08/08/25 09:00 08/13/25 08:09 Tamsulosin Hcl 0.4 Mg Capsule PO 0.4 mg DAILY DEX Administration Radiology Results: ITS Impressions Head CT 08/07/25 10:29 IMPRESSION: 1. No acute intracranial findings. Chest X-Ray 08/07/25 10:33 IMPRESSION: 1. Recommend CT chest with contrast to exclude perihilar abnormality. 2. No acute abnormality. Venous Doppler Study 08/07/25 12:18 IMPRESSION: 1. No left upper extremity DVT. Chest CT 08/07/25 14:29 IMPRESSION: Unremarkable exam. There is no hilar mass identified. Brain MRI 08/08/25 12:31 IMPRESSION: 1. Chronic encephalomalacia involving the left insula, left basal ganglia, and left frontal lobe deep white matter. Chronic hematoma involving the left basal ganglia and left insula. Modified Barium Swallow 08/10/25 14:11 IMPRESSION: No aspiration observed. See also speech therapist's notes for complete details. Labs Labs: Laboratory Results - last 24 hr 08/12/25 04:31 Triglycerides 89 Cholesterol 196 LDL Cholesterol Direct 116 HDL Direct 43 Quality VTE Prophylaxis VTE prophylaxis: mechanical ordered Hospitalist MIPS Advance Care Plan I have confirmed that the patient's Advanced Care Plan is present, code status is documented, or surrogate decision maker is listed in patient medical record.: Yes Medication Reconciliation I have utilized all available resources to obtain, update and review the patients current medications (includes all prescriptions, OTC, herbals, cannabis, and nutritional supplements).: Yes
[2025-08-13] MEDS: MELATONIN 3 MG TABLET PO (20:08)
[2025-08-13] MEDS: SENNOSIDES 8.6 MG TABLET PO (20:09)
[2025-08-14] VITALS: PULSE 67
[2025-08-14 04:00] VITALS: PULSE 81
[2025-08-14 04:34] VITALS: BP 115/70; PULSE 74; RESP 16; TEMP 37.1; O2SAT 96
[2025-08-14 08:00] VITALS: PULSE 74
--- NOTE | 2025-08-14 08:32 | PM.IMPN ---
Progress Note: A&P Assessment and Plan (1) ICH (intracerebral hemorrhage): Code(s): I61.9 - Nontraumatic intracerebral hemorrhage, unspecified Status: Acute (2) Seizure: Code(s): R56.9 - Unspecified convulsions Status: Acute Assessment and Plan: Brain MRI IMPRESSION: 1. Chronic encephalomalacia involving the left insula, left basal ganglia, and left frontal lobe deep white matter. Chronic hematoma involving the left basal ganglia and left insula. Plan Seizure after ICH, intracranial hematoma -patient had intracranial hemorrhage 07/10/25 and [facility] She has some deficiencies include right-sided deficit and dysarthria. Her stroke symptoms are improving however she had a seizure episode while at rehab -head CT with no acute finding, she had a recent head bleed, seizure from settled blood? Patient has not had any issues for several weeks. No sign of rebleed, no seizure history -EEG pending -brain MRI 08/08: Chronic encephalomalacia of the left insular, basal ganglia, frontal lobe. Chronic hematoma in left basal ganglia and left insula -awaiting Neurology consultation -IV fluids: NS at 100 cc/hour for now -loaded with Keppra, continue Keppra 750 mg p.o. b.i.d. as per Neurology -p.r.n. diazepam for seizures -seizure may be due to hemorrhagic stroke Diffuse rash, drug rash? -recently started on gabapentin, will discontinue for now -continue hydrocortisone cream for rash -increased strength from 1% to 2.5 -started prednisone 40 mg p.o. q.d. for 5 days -rash may be a drug rash. Location is mostly on the back also on her arms, spread throughout body. On extremities more proximal Urinary retention, UTI -awaiting urine culture. Urinalysis concern for bacteria -antibiotics: Continue Rocephin for 3 day course for now despite being afebrile and no leukocytosis. Retention symptom may be from infection -continue bladder scan q.6 hours and straight cath for greater than 300 cc -retention appears to be a post stroke development -with urinary retention she is at increased risk for UTI Chronic conditions -recent intracranial hemorrhage: Developed while at [facility], was hospitalized out there for several weeks. No anticoagulation for a month. Continue PT OT speech therapy -nicotine dependence: Nicotine patch -urinary retention: Continue straight catheterization intermittent, on Flomax? -bowel regimen: Senokot, MiraLax -essential hypertension: Metoprolol -allergies: Claritin -supplements: Folic acid -chronic left axillary DVT: No anticoagulation with the ICH -narcolepsy: modafinil, had an episode of falling asleep while sitting upright 08/09/25 -history of basal cell carcinoma status post plastic surgery Diet: Heart healthy DVT prophylaxis: SCDs, no chemoprophylaxis recent intracranial hemorrhage Code status: Full code Disposition: Back to rehab tomorrow Social: updated bedside Subjective Date/time seen: 08/14/25 08:32 Interval history: Rash is getting better. No breakthrough seizures Review of Systems Review of Systems: 10 point ROS complete, negative other than what is specified in HPI. Exam Narrative: - GENERAL: Pleasant woman in no acute distress. falling asleep but arousable after several minutes. - EYES: EOMI. Anicteric. - HENT: Moist mucous membranes. - LUNGS: Clear to auscultation bilaterally, no wheezing, rhonchi, or rales. - CARDIOVASCULAR: Regular rate and rhythm. - ABDOMEN: Soft, non-tender and non-distended. No palpable masses. - EXTREMITIES: No edema. Peripheral pulses 2+. Non-tender. - NEUROLOGIC: Improvement of right lower extremity strength, dysarthria present - PSYCHIATRIC: cooperative - SKIN: Rash present throughout body including chest, back, lower extremities. Rash predominantly on back. Surgical scar from basal cell carcinoma of her nose - LYMPH: No cervical lymphadenopathy. Objective Data Vital Signs Vital Signs: Vital Signs - 24 hr 08/13/25 12:00 08/13/25 14:00 08/13/25 16:00 Temperature 98.1 F Pulse Rate 77 78 80 Respiratory Rate 14 Blood Pressure 98/61 L Pulse Oximetry 97 Oxygen Delivery 08/13/25 20:00 08/13/25 20:00 08/13/25 20:08 Temperature Pulse Rate 87 87 Respiratory Rate Blood Pressure Pulse Oximetry Oxygen Delivery Room Air 08/13/25 20:11 08/14/25 00:00 08/14/25 04:00 Temperature 97.7 F Pulse Rate 76 67 81 Respiratory Rate 16 Blood Pressure 101/55 L Pulse Oximetry 96 Oxygen Delivery 08/14/25 04:34 Temperature 98.7 F Pulse Rate 74 Respiratory Rate 16 Blood Pressure 115/70 Pulse Oximetry 96 Oxygen Delivery Intake/Output Intake/Output: Intake & Output 08/11/25 08/12/25 08/13/25 08/14/25 23:59 23:59 23:59 23:59 Intake Total 840 2080 1120 Output Total 950 950 900 550 Balance -110 1130 220 -550 Meds/Results Medications: Active Medications Generic Name Dose Route Start Last Admin Trade Name Freq PRN Reason Stop Dose Admin Acetaminophen 325 mg 08/07/25 17:53 08/11/25 08:56 Acetaminophen Elixir 325 Mg/10.15 Ml Udc PO 325 mg Q6H PRN Administration pain 1-3, mild Bethanechol Chloride 10 mg 08/07/25 21:00 08/14/25 06:31 Bethanechol Chloride 10 Mg Tablet PO Not Given ACHS DEX Ciprofloxacin 500 mg 08/11/25 21:00 08/13/25 20:08 Ciprofloxacin 500 Mg Tab PO 500 mg Q12HR DEX Administration Diazepam 5 mg 08/07/25 17:18 Diazepam Inj (*Crx) 10 Mg/2 Ml Syringe IV PUSH Q6HR PRN Seizures Folic Acid 1 mg 08/08/25 09:00 08/13/25 08:10 Folic Acid 1 Mg Tablet PO 1 mg DAILY DEX Administration Hydrocortisone 1 applic 08/12/25 21:00 08/13/25 20:08 Hydrocortisone 2.5% Cream 30 Gm Tube TOPICAL 1 applic Q12HR DEX Administration Hyoscyamine 0.125 mg 08/11/25 22:32 08/11/25 23:00 Hyoscyamine Sulfate 0.125 Mg Tablet PO 0.125 mg Q4H PRN Administration Bladder Spasm Levetiracetam 750 mg 08/09/25 21:00 08/13/25 20:07 Levetiracetam 250 Mg Tablet PO 750 mg Q12HR DEX Administration Loratadine 10 mg 08/08/25 09:00 08/13/25 08:09 Loratadine 10 Mg Tablet PO 10 mg QAM DEX Administration Melatonin 3 mg 08/07/25 21:00 08/13/25 20:08 Melatonin 3 Mg Tablet PO 3 mg HS DEX Administration Metoprolol Tartrate 50 mg 08/07/25 21:00 08/13/25 20:08 Metoprolol Tartrate 50 Mg Tab PO 50 mg Q12HR DEX Administration Nicotine 1 patch 08/08/25 09:00 08/13/25 08:08 Nicotine (*Pbkc) 14 Mg Patch TRANSDERM 1 patch DAILY DEX Administration Polyethylene Glycol 17 gm 08/08/25 09:00 08/13/25 08:09 Polyethylene Glycol 3350 17 Gm Powd.Pack PO 17 gm QAM DEX Administration Senna 8.6 mg 08/07/25 21:00 08/13/25 20:09 Sennosides 8.6 Mg Tablet PO 8.6 mg HS DEX Administration Tamsulosin HCl 0.4 mg 08/08/25 09:00 08/13/25 08:09 Tamsulosin Hcl 0.4 Mg Capsule PO 0.4 mg DAILY DEX Administration Radiology Results: ITS Impressions Head CT 08/07/25 10:29 IMPRESSION: 1. No acute intracranial findings. Chest X-Ray 08/07/25 10:33 IMPRESSION: 1. Recommend CT chest with contrast to exclude perihilar abnormality. 2. No acute abnormality. Venous Doppler Study 08/07/25 12:18 IMPRESSION: 1. No left upper extremity DVT. Chest CT 08/07/25 14:29 IMPRESSION: Unremarkable exam. There is no hilar mass identified. Brain MRI 08/08/25 12:31 IMPRESSION: 1. Chronic encephalomalacia involving the left insula, left basal ganglia, and left frontal lobe deep white matter. Chronic hematoma involving the left basal ganglia and left insula. Modified Barium Swallow 08/10/25 14:11 IMPRESSION: No aspiration observed. See also speech therapist's notes for complete details.
[2025-08-14] MEDS: FOLIC ACID 1 MG TABLET PO (08:50)
[2025-08-14] MEDS: LORATADINE 10 MG TABLET PO (08:50)
[2025-08-14] MEDS: CIPROFLOXACIN 500 MG TAB PO (08:50)
[2025-08-14 08:53] VITALS: PULSE 74
[2025-08-14] MEDS: HYDROCORTISONE 2.5% CREAM 30 GM TUBE 1 APPLIC TOPICAL (08:53)
[2025-08-14] MEDS: METOPROLOL TARTRATE 50 MG TAB PO (08:53)
[2025-08-14] MEDS: NICOTINE (*PBKC) 14 MG PATCH 1 PATCH TRANSDERM (08:53)
[2025-08-14] MEDS: TAMSULOSIN HCL 0.4 MG CAPSULE PO (08:53)
[2025-08-14] MEDS: BETHANECHOL CHLORIDE 10 MG TABLET PO (12:19)
--- NOTE | 2025-08-14 12:45 | P.DS_ITS ---
DS: Admitting Diagnosis Discharge Date 08/14/2025 Admitting Diagnosis Seizure DS: Discharge Diagnosis Discharge Diagnosis (1) ICH (intracerebral hemorrhage): Code(s): I61.9 - Nontraumatic intracerebral hemorrhage, unspecified Status: Acute (2) Seizure: Code(s): R56.9 - Unspecified convulsions Status: Acute DS: Summary Hospital Course Hospital Course: # Seizure after ICH, intracranial hematoma -patient had intracranial hemorrhage 07/10/25 and now at [facility]. She has some deficiencies include right-sided deficit and dysarthria. Her stroke symptoms are improving however she had a seizure episode while at rehab -head CT with no acute finding, she had a recent head bleed, seizure from settled blood? Patient has not had any issues for several weeks. No sign of rebleed, no seizure history -EEG normal with no evidence of focal slowing or paroxysmal activity. Clinical correlation -brain MRI 08/08: Chronic encephalomalacia of the left insular, basal ganglia, frontal lobe. Chronic hematoma in left basal ganglia and left insula -neurology consulted -patient loaded with Keppra, continue Keppra 750 mg p.o. b.i.d. as per Neurology -p.r.n. diazepam for seizures -seizure may be due to hemorrhagic stroke # Diffuse rash, drug rash? -recently started on gabapentin, will discontinue for now -continue hydrocortisone cream for rash -increased strength from 1% to 2.5 -started prednisone 40 mg p.o. q.d. for 5 days and completed the course -rash may be a drug rash. Location is mostly on the back also on her arms, spread throughout body. On extremities more proximal Follow-up with Dermatology persistent. Rash improving # Urinary retention, UTI -urine culture with Enterococcus faecalis. Sensitive to Cipro finish course repeat UA was already negative for UTI. -Retention symptom may be from infection -continue bladder scan q.6 hours and straight cath for greater than 300 cc -retention appears to be a post stroke development -with urinary retention she is at increased risk for UTI Almaguer catheter. Follow up with Urology as outpatient basis. # recent intracranial hemorrhage: Developed while at [facility], was hospitalized out there for several weeks. No anticoagulation for a month. Continue PT OT speech therapy # nicotine dependence: Nicotine patch # urinary retention: Continue straight catheterization intermittent, on Flomax? Currently on Almaguer catheter. Urology consulted. Follow-up with urologist outpatient basis. # essential hypertension: Metoprolol # allergies: Claritin # chronic left axillary DVT: No anticoagulation with the ICH # narcolepsy: modafinil, had an episode of falling asleep while sitting upright 08/09/25 # history of basal cell carcinoma status post plastic surgery Diet: Heart healthy DVT prophylaxis: SCDs, no chemoprophylaxis recent intracranial hemorrhage Code status: Full code Disposition: Back to [facility] Time Spent with Patient Time attestation: Total time spent providing and/or coordinating discharge services: 40 minutes Exam Narrative: - GENERAL: Pleasant woman in no acute d istress. Not in acute distress - EYES: EOMI. Anicteric. - HENT: Moist mucous membranes. - LUNGS: Clear to auscultation bilateral ly, no wheezing, rhonchi, or rales. - CARDIOVASCULAR: Regular rate and rhyth m. - ABDOMEN: Soft, non-tender and non-dist ended. No palpable masses. - EXTREMITIES: No edema. Peripheral puls es 2+. Non-tender. - NEUROLOGIC: Improvement of right lowe r extremity strength, dysarthria present - PSYCHIATRIC: cooperative - SKIN: Rash present throughout body in cluding chest, back, lower extremities. Rash predominantly on back. Surgical scar from basal cell carcinoma of her nose - LYMPH: No cervical lymphadenopathy. DS: Data Imaging Radiologist's impression: ITS Impressions Head CT 08/07/25 10:29 IMPRESSION: 1. No acute intracranial findings. Chest X-Ray 08/07/25 10:33 IMPRESSION: 1. Recommend CT chest with contrast to exclude perihilar abnormality. 2. No acute abnormality. Venous Doppler Study 08/07/25 12:18 IMPRESSION: 1. No left upper extremity DVT. Chest CT 08/07/25 14:29 IMPRESSION: Unremarkable exam. There is no hilar mass identified. Brain MRI 08/08/25 12:31 IMPRESSION: 1. Chronic encephalomalacia involving the left insula, left basal ganglia, and left frontal lobe deep white matter. Chronic hematoma involving the left basal ganglia and left insula. Modified Barium Swallow 08/10/25 14:11 IMPRESSION: No aspiration observed. See also speech therapist's notes for complete details. Discharge Plan Discharge Attending physician on discharge: Luciano Medina Consulting providers: Perry Bonilla; Alexis Kingarging Clinician: Luciano Medina Anticipated Discharge Date/Time: 08/14/25 12:49 Patient Disposition: [facility] Activity: as tolerated Diet: heart healthy Patient Language: Serbian Follow-up/Referrals: Perry Bonilla MD [Physician, Neurology] - 4 Weeks Meet Gonzalez PA [Physician Hand Cigar Making Supervisor, Urology] - 4 Weeks Referral Note: Urinary retention Abdias Feng MD [Primary Care Provider, Hospitalist] - 1 Week Discharge Medications: New loratadine 10 mg Tablet 10 mg PO QAM Qty: 30 0RF polyethylene glycol 3350 [Miralax] 17 gram Powder In Packet 17 g PO QAM Qty: 30 0RF sennosides [Senokot] 8.6 mg Tablet 8.6 mg PO HS Qty: 30 0RF hydrocortisone 2.5 % Cream 1 applic topical Q12HR Qty: 30 0RF levetiracetam 250 mg Tablet 750 mg PO Q12HR Qty: 60 0RF ciprofloxacin HCl 500 mg Tablet 500 mg PO Q12HR Qty: 8 0RF Continued acetaminophen 325 mg/10.15 mL solution 325 mg PO Q6H PRN (Reason: pain, mild) bethanechol chloride 10 mg tablet 10 mg PO ACHS docusate sodium 100 mg capsule 100 mg PO BID folic acid 1 mg tablet 1 mg PO DAILY psyllium husk [Daily Fiber] 0.52 gram capsule 1.04 g PO HS Digestive Advantage Immune 250 million cell tablet,chewable 1 tablet PO QHS melatonin 3 mg capsule 3 mg PO HS nicotine [Nicoderm CQ] 14 mg/24 hr patch 24 hour 1 patch transdermal DAILY Patient Comments: pt has one on already tamsulosin [Flomax] 0.4 mg capsule 0.4 mg PO DAILY metoprolol tartrate 100 mg tablet 50 mg PO BID Discontinued gabapentin 100 mg capsule 100 mg PO TID hydrocortisone [Ala-Nahum] 1 % cream 1 applic topical BID midodrine 5 mg tablet 5 mg PO TID Rx Instructions: do not give last dose of day after 6PM or within 4 hrs of bedtime modafinil 200 mg tablet 200 mg PO QAM amlodipine 10 mg tablet 10 mg PO DAILY folic acid 1 mg tablet 1 mg PO DAILY Date of admission: 08/07/25 13:26 Primary Care Provider: Abdias Feng Admitting Provider: Luciano Medina Attending physician on admission: Luciano Medina Condition: Improved
== END 2025-08-14 15:20 ==
LOC: ANHED 13:41 → ANH3MEDSUR 13:57 → ANH2MED 15:09
PROVIDERS: General Practice; Nurse Practitioner; Nurse Practitioner Gerontology; Psychiatry & Neurology Neurology; Student in an Organized Health Care Education/Training Program; Admitting Provider Internal Medicine; Emergency Provider Emergency Medicine; PCP Internal Medicine; Visit Provider Internal Medicine
DX: I61.9 Nontraumatic intracerebral hemorrhage, unspecified (principal); R56.9 Unspecified convulsions; N30.00 Acute cystitis without hematuria; R33.9 Retention of urine, unspecified; I69.151 Hemiplegia and hemiparesis following nontraumatic intracerebral hemorrhage affecting right dominant side; I69.120 Aphasia following nontraumatic intracerebral hemorrhage; F17.210 Nicotine dependence, cigarettes, uncomplicated; R21 Rash and other nonspecific skin eruption; R13.10 Dysphagia, unspecified; I10 Essential (primary) hypertension; R60.0 Localized edema; R53.81 Other malaise; Z86.718 Personal history of other venous thrombosis and embolism
CPT/HCPCS: 36415; 70450; 70551; 71045; 71250; 74230; 80048; 80053; 80061; 81001; 82550; 83735; 85025; 85027; 85610; 85730; 87086; 87147; 87186; 92507; 92523; 92611; 93005; 93971; 95816; 96361; 96365; 96367; 96374; 96375; 96376; 97110; 97112; 97162; 97167; 97530; 97535; 99285; A9270; G0378; J0696; J1953; J7030; J7512

== ENCOUNTER 2025-08-23 11:31 | Emergency (ER) | payer OTHER, SELFPAY ==
[2025-08-23] VITALS (25 sets, daily range): BP systolic 97–141; BP diastolic 67–86; PULSE 70–82; RESP 12–18; TEMP 36.4; O2SAT 92–100
--- NOTE | ~2025-08-23 | CT_ITS ---
EXAMINATION: CT brain wo con, 08/23/2025 12:38 REFRACTORY FURNACE DESIGNER HISTORY: recent hemorrhagic CVA sz; new sz-like activity? COMPARISON: Comparison 08/08/2025. Technique: Axial images obtained of the brain without contrast. One or more of the following dose reduction techniques were used: automated exposure control, adjustment of the mA and/or kV according to patient size, use of iterative reconstruction technique. Findings: Large remote left MCA infarct, no acute infarct or hemorrhage. There is no midline shift or mass effect. No extra-axial fluid collections. Mastoid air cells unremarkable. Sinuses and orbits unremarkable. No acute fracture. No significant facial or scalp soft tissue swelling evident. No radiopaque foreign body is seen. Impression: 1.No acute intracranial abnormality. Reviewed, dictated and finalized at location P. ACTORY FURNACE DESIGNER Impression: 1.No acute intracranial abnormality.
--- NOTE | 2025-08-23 11:44 | ECG_ITS ---
Test Date: 2025-08-23 11:46:42 Measurements Intervals [place] Rate: 69 P: 57 [place]: 147 QRS: 42 QRSD: 81 T: 43 QT: 374 QTc: 401 Interpretive Statements SINUS RHYTHM POSSIBLE LEFT ATRIAL ENLARGEMENT MINIMAL Q WAVES- INFERIOR LEADS BASELINE ARTIFACT- I, II, III, AVR, AVL, V1 BORDERLINE ECG Compared to ECG 08/07/2025 10:38:39 No significant changes Electronically Signed On 08-23-2025 13:15:45 NURSE PRN by Tony Thomas D.O.
--- NOTE | 2025-08-23 12:19 | ED.SEIZURE ---
HPI - Seizure General Chief Complaint: Seizure Stated Complaint: seizure Time Seen by Provider: 08/23/25 12:16 Source: patient and family (, son) Mode of arrival: EMS History of Present Illness HPI Narrative: Patient presents with report of questionable seizure-like activity. 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 She was admitted [facility] and had seizure-like activity in the form of tonic clonic movements per family witnessed on 08/07/2025. She was then readmitted to [facility] to be seen by Neurology and underwent an MRI and was placed on Keppra 750 mg b.i.d.. She was discharged back to [facility] on 08/14 and works with physical therapy there. She had developed urinary retention and has had Almaguer in and out at various times since her stroke. Recent urinary tract infection for which she was on ciprofloxacin. notes that today while she was in her wheelchair working physical therapy she seemed to stare off and was less responsive, not snapping out of it.This 68 allergy is different from what he had witnessed before. He noted that her blood pressure was also low during this time but then with her lying down it was normal. She is A&O x2 which is her new baseline by report. EMS reported blood sugar 120. She initially denied any pain or complaints although did seem drowsy per triage note. On my examination she reports that she experiences some right arm pain when she has to move it but otherwise is without complaints in any of other extremities and she denies any chest pain, headache, abdominal pain, or shortness of breath. She denies any cough. She also denies any diarrhea although her Saturday she did have diarrheal stools however believes that she had an enema earlier that day. They note that she has had decreased p.o. intake and hydration. They note that she was seen by neurologist Dr. Forbes but also had been seen by neurologist Dr. Bonilla while in the hospital. Related Data Home Medications ?Medication ?Instructions ?Recorded ?Confirmed ?Last Taken ?Type metoprolol tartrate 100 mg tablet 50 mg PO BID 07/26/25 08/14/25 08/06/25 History nicotine 14 mg/24 hr daily 1 patch transdermal DAILY 07/26/25 08/14/25 08/07/25 History transdermal patch (Nicoderm CQ) tamsulosin 0.4 mg capsule (Flomax) 0.4 mg PO DAILY 07/26/25 08/14/25 08/06/25 History Bacillus coagulans 250 million 1 tablet PO QHS 08/07/25 08/14/25 08/06/25 History cell chewable tablet (Digestive Advantage Immune) acetaminophen 325 mg/10.15 mL oral 325 mg PO Q6H PRN pain, mild 08/07/25 08/14/25 08/13/25 History solution bethanechol chloride 10 mg tablet 10 mg PO ACHS 08/07/25 08/14/25 08/06/25 History docusate sodium 100 mg capsule 100 mg PO BID 08/07/25 08/14/25 08/06/25 History folic acid 1 mg tablet 1 mg PO DAILY 08/07/25 08/14/25 08/06/25 History melatonin 3 mg capsule 3 mg PO HS 08/07/25 08/14/25 08/06/25 History psyllium husk 0.52 gram capsule 1.04 g PO HS 08/07/25 08/14/25 08/06/25 History (Daily Fiber) ciprofloxacin HCl 500 mg tablet 500 mg PO Q12HR 08/16/25 08/16/25 Unknown History Allergies Allergy/AdvReac Type Severity Reaction Status Date / Time amoxicillin Allergy Intermediate Rash Verified 08/23/25 12:01 Penicillins Allergy Intermediate Rash Verified 08/23/25 12:01 gabapentin AdvReac Rash Verified 08/23/25 12:01 [facility] Past Medical History Medical History Debility Right-sided visual neglect Seizure Obstructive hydrocephalus Hemiparesis of right dominant side as late effect of nontraumatic intracerebral hemorrhage Aphasia due to and not concurrent with nontraumatic intracerebral hemorrhage ICH (intracerebral hemorrhage) UTI (urinary tract infection) Urinary retention DVT of left axillary vein, chronic HTN (hypertension) Hemiplegia and hemiparesis following nontraumatic intracerebral hemorrhage affecting right dominant side Smoker Surgical History Surgical History S/P lateral meniscal repair Social History Social History (Updated 08/23/25 @ 12:48 by Madeleine Conteh MD) Social History: Smoking packs per day: 1 Smoking cigarettes per day: 20.0 Years smoked: 34 Smoking pack-years: 34.00 Smoking status: Former smoker Tobacco type: cigarettes Smoking end date: 07/24/25 Additional smoking assessment comments: been smoking since the age of 11 Alcohol intake: current Drinks per week: 15 Substance use: never Lack of Transportation: No Lack of Food: Never True Current Housing: I Have Housing Concerned About Future Housing: No Difficulty Paying Gas/Electric Bills: No Difficulty Paying for Meds: No Currently Unemployed: No Education: High School Diploma/GED Difficulty w/ Childcare or Family Care: No Gender identity (if verbalized by the patient): Female Spiritual care concerns: No Exam Narrative: GENERAL: Well-appearing, well-nourished, and in no acute distress. HEAD: Normocephalic, atraumatic. EYES: Non injected, non icteric ENT: Nares clear, no rhinorrhea or epistaxis. Gross auditory acuity intact. Tacky mucous membranes. NECK: Supple. No meningismus. CHEST: Speaking in full sentences. No respiratory distress. HEART: Regular rate and rhythm. ABDOMEN: Soft, nondistended. No rigidity or guarding. Not peritoneal EXTREMITIES:No lower extremity edema. SKIN: Warm, dry, no rash. NEURO: RUE weakness but is able to demonstrate movement in LUE and bilateral lower extremities. Alert and oriented. Answering questions. Following commands. No involuntary movements appreciated. PSYCH: Congruent mood and affect. Course Vital Signs Vital signs: Vital Signs Temperature 97.6 F 08/23/25 11:29 Pulse Rate 72 08/23/25 11:29 Respiratory Rate 18 08/23/25 11:29 Blood Pressure 97/86 L 08/23/25 11:29 Pulse Oximetry 100 08/23/25 11:29 Oxygen Delivery Room Air 08/23/25 11:29 Temperature 97.6 F 08/23/25 11:29 Pulse Rate 78 08/23/25 15:46 Respiratory Rate 17 08/23/25 15:46 Blood Pressure 141/75 H 08/23/25 16:40 Pulse Oximetry 94 08/23/25 15:31 Oxygen Delivery Room Air 08/23/25 11:29 MDM - Seizure MDM Narrative Medical decision making narrative: Patient presents with report of possible seizure-like activity. She had a hemorrhagic stroke in June followed by reportedly tonic clonic seizure activity on 08/07/2025. Underwent MRI and is currently on Keppra 750 mg b.i.d.. Also recently treated for urinary tract infection with indwelling Almaguer catheter. In the emergency department she is afebrile with vital signs notable for hypotension although without a narrow pulse pressure, mean arterial pressure is 89 mmHg. 1L IV fluids ordered for this as well as tacky mucous membranes and report of decreased PO intake/hydration, though notably while in the room, subsequent BPs on the monitor after the reading are as follows: 138/79, 109/92, 171/74, 171/77. Patient still at risk of conversion of brain parenchyma and for this reason another CT non-con is ordered. Keppra level also ordered ( ). Patient had been seen by Dr Forbes Recent UTI which based on culture 08/07 grew Enterococcus faecalis sensitive to cipro which she was on until last dose 08/18. Subsequent urine culture 08/11 no growth. It appears this Almaguer was placed 08/07 (?) per review of inpatient documentation. Mild abnormalities on the differential but otherwise CBC is without leukocytosis anemia thrombocytopenia. Lactic acid normal although drawn after she had already been in the ED for a period of time. UA concerning for infection. RN to remove Almaguer and place a new one. Will give first dose of Macrobid as past positive culture was sensitive to this as well. Rest of course prescribed. Dr Forbes recommends increasing to 1000mg BID Keppra. Discussed this with patient and her who verify understanding. Patient had been advised to follow up with urology upon discharge from rehabilitation facility. Goal is for continued therapy at [facility] until 09/01 after which the plan is for her to return home but continue outpatient therapy. Advised follow up with neurologist as well. EMS transportation back to facility arranged though there is a bit of a delay due to environmental / weather issues. Patient otherwise remains stable. Differential Diagnosis Differential diagnosis: Likely intractable seizure disorder, focal seizure, generalized seizure, epileptic seizure, status epilepticus and other (recrudesence (due to infection, etc.)) Medical Records Attestation: I reviewed the patient's medical records. Medical records narrative: 08/08/25 MRI IMPRESSION: 1. Chronic encephalomalacia involving the left insula, left basal ganglia, and left frontal lobe deep white matter. Chronic hematoma involving the left basal ganglia and left insula. == Urology consultation note: Urinary retention likely 2/2 recent CVA - Recommend continued Almaguer catheter use for urinary diversion - Will ultimately benefit from outpatient workup with urodynamics to evaluate bladder function but do not recommend until after pt is out of acute phase of recent CVA Lab Data Attestation: I reviewed the patient's lab results. 08/23/25 12:18 08/23/25 12:18 Labs: Lab Results 08/23/25 08/23/25 08/23/25 Range/Units 12:18 13:20 14:51 WBC 7.9 (4.5-10.0) K/mm3 RBC 4.42 (4.2-5.4) M/mm3 Hgb 13.9 (12.0-15.0) g/dL Hct 41.9 (37.0-47.0) % MCV 94.8 (80-100) fl MCH 31.4 (26-34) pg MCHC 33.2 (32-36) g/dl RDW 12.2 (11.5-14.5) % Plt Count 237 (150-375) k/mm3 MPV 10.4 (7.4-10.4) fl Immature Gran % (Auto) 0.3 (0-0.5) % Neut % (Auto) 63.4 (45.5-73.1) % Lymph % (Auto) 25.0 (18.3-44.2) % [place] % (Auto) 9.0 H (2.6-8.5) % Eos % (Auto) 1.7 (0-4.4) % Baso % (Auto) 0.6 (0.2-1.2) % Lymph # (Auto) 1.97 (0.9-3.2) K/mm3 [place] # (Auto) 0.7 H (0.1-0.6) K/mm3 Eos # (Auto) 0.1 (0-0.3) K/mm3 Baso # (Auto) 0.1 (0.0-0.1) K/mm3 Abs Immat Gran (auto) 0.02 (0.00-0.031) K/mm3 Absolute Neuts (auto) 5.0 (1.3-6.7) K/mm3 Absolute Nucleated RBC 0.000 (0.0-0.012) K/mm3 Nucleated RBC % 0.0 (0.0-0.2) % PT 13.3 (11.1-14.7) Seconds INR 1.0 APTT 26.8 (22.3-36.8) Seconds Sodium 138 (137-145) mmol/L Potassium 4.3 (3.4-5.0) mmol/L Chloride 103 (98-107) mmol/L Carbon Dioxide 32 H (22-30) mmol/L Anion Gap 3 L (4-12) mmol/L BUN 17 (7-17) mg/dL Creatinine 0.61 L (0.7-1.0) mg/dL Estim Creat Clear Calc 67 ml/min Estimated GFR > 60 (59 - ) Glucose 91 (65-110) mg/dL Lactic Acid 1.1 (0.7-2.0) mmol/L Calcium 9.7 (8.4-10.2) mg/dL Total Bilirubin 0.5 (0.2-1.3) mg/dL AST 27 (14-36) U/L ALT 20 (6-35) U/L Alkaline Phosphatase 100 (38-126) U/L Total Protein 6.6 (6.3-8.2) g/dL Albumin 3.8 (3.5-5.1) g/dL Urine Color Yellow (Yellow) Urine Appearance Cloudy H (Clear) Urine pH 6.0 (5.0-9.0) Ur Specific Elsa 1.020 (1.001-1.035) Urine Protein Trace (Negative) mg/dL Urine Glucose (UA) Negative (Negative) mg/dL Urine Ketones Negative (Negative) mg/dL Ur Blood (Man) 2+ H (Negative) Urine Nitrate Negative (Negative) Urine Bilirubin Negative (Negative) Urine Urobilinogen 0.2 (<2.0) mg/dL Add Ur Microanalysis Reviewed Leukocyte Esterase Rfl 2+ H (Negative) SAMANTHA/UL Urine RBC 51-100 H (0-2) /hpf Urine WBC 11-20 H (0-3) /hpf Ur Squamous Epith Cells None seen (Few) /hpf Calcium Oxalate Crystal Present (None) /hpf Urine Bacteria 2+ H /hpf Urine Casts 3-5 Levetiracetam Pending Imaging Data Radiologist's impression: Impressions Head CT 08/23/25 12:53 Impression: 1.No acute intracranial abnormality. ECG Data EKG #1: Attestation: I personally reviewed and interpreted this ECG as follows: ECG completion date: 08/23/25 ECG completion time: 11:46 Interpretation: Normal sinus rhythm at a rate of 69 beats per minute. MN interval 147. QRS 81. QT/QTC 374/401. Good R-wave progression across the precordial leads. No T-wave inversions. Normal axis. Discharge Plan Discharge Clinical Impression: Mental status change resolved, Urinary tract infection due to indwelling Almaguer catheter Patient Disposition: NH Snf/Asst Living Condition: Stable Instructions: Antibiotic Form, Altered Mental Status (ED), Catheter-associated Urinary Tract Infection (ED), New Onset Absence Seizures in Adults (ED) Additional Instructions: As we discussed, the neurologist recommended increasing Keppra to 1000mg (four 250mg tablets is fine) twice a day. Supplemental prescription provided. Follow up with neurology. You also have evidence of another UTI. Your Almaguer catheter was changed today (08/23) and replaced and you received first dose antibiotic in the ED with rest of the course prescribed and a urine culture in process. Take course and follow up with urology as recommended by them (1-2 weeks after discharge from rehab facility). Call to make an appointment now so it is on the books. Patient Language: Afghan Prescriptions: New levetiracetam [Keppra] 250 mg tablet 250 mg PO BID 30 Days Qty: 60 0RF Rx Instructions: supplement previous Rx for a total of 1000mg (four 250mg tablets) BID nitrofurantoin monohyd/m-cryst [Macrobid] 100 mg capsule 100 mg PO Q12H 5 Days Qty: 9 0RF Rx Instructions: must administer with a meal/food; received first dose in ED 12 PM No Action acetaminophen 325 mg/10.15 mL solution 325 mg PO Q6H PRN (Reason: pain, mild) bethanechol chloride 10 mg tablet 10 mg PO ACHS docusate sodium 100 mg capsule 100 mg PO BID folic acid 1 mg tablet 1 mg PO DAILY psyllium husk [Daily Fiber] 0.52 gram capsule 1.04 g PO HS Digestive Advantage Immune 250 million cell tablet,chewable 1 tablet PO QHS melatonin 3 mg capsule 3 mg PO HS levetiracetam 250 mg Tablet 750 mg PO Q12HR Qty: 60 0RF hydrocortisone 2.5 % Cream 1 applic topical Q12HR Qty: 30 0RF loratadine 10 mg Tablet 10 mg PO QAM Qty: 30 0RF polyethylene glycol 3350 [Miralax] 17 gram Powder In Packet 17 g PO QAM Qty: 30 0RF sennosides [Senokot] 8.6 mg Tablet 8.6 mg PO HS Qty: 30 0RF ciprofloxacin HCl 500 mg Tablet 500 mg PO Q12HR Rx Instructions: stop date 08/18/25 nicotine [Nicoderm CQ] 14 mg/24 hr patch 24 hour 1 patch transdermal DAILY Patient Comments: pt has one on already tamsulosin [Flomax] 0.4 mg capsule 0.4 mg PO DAILY metoprolol tartrate 100 mg tablet 50 mg PO BID Follow-up/Referrals: Eben Billingsley MD [Physician, Urology] Berry Forbes MD [Physician, Neurology] Riaz,MD Stewart [Non-Staff, Unknown] Abdias Feng MD [Primary Care Provider, Hospitalist] Stand Alone Forms: Skilled Nursing Discharge Time of Disposition: 16:15
[2025-08-23 12:23] LABS: Hematocrit 41.9 % (37.0-47.0); Hemoglobin 13.9 g/dL (12.0-15.0); Immature Granulocyte Percent A 0.3 % (0-0.5); Lymphocytes Absolute Auto 1.97 K/mm3 (0.9-3.2); Mean Corpuscular HGB Conc 33.2 g/dl (32-36); Mean Corpuscular Hemoglobin 31.4 pg (26-34); Mean Corpuscular Volume 94.8 fl (80-100); Nucleated Red Blood Cells Absolute Auto 0.000 K/mm3 (0.0-0.012); Nucleated Red Blood Cells Perc 0.0 % (0.0-0.2); Platelet Count Result 237 k/mm3 (150-375); Red Blood Count 4.42 M/mm3 (4.2-5.4); White Blood Count 7.9 K/mm3 (4.5-10.0)
[2025-08-23 12:36] LABS: INR 1.0; Prothrombin Time 13.3 Seconds (11.1-14.7)
[2025-08-23 12:37] LABS: Partial Thromboplastin Time 26.8 Seconds (22.3-36.8)
[2025-08-23 12:46] LABS: Alanine Aminotransferase 20 U/L (6-35); Albumin Level 3.8 g/dL (3.5-5.1); Alkaline Phosphatase 100 U/L (38-126); Anion Gap 3 mmol/L (4-12); Aspartate Amino Transferase 27 U/L (14-36); Bilirubin,Total 0.5 mg/dL (0.2-1.3); Blood Urea Nitrogen 17 mg/dL (7-17); Calcium 9.7 mg/dL (8.4-10.2); Carbon Dioxide 32 mmol/L (22-30); Chloride 103 mmol/L (98-107); Estimated CRCL calculation 67 ml/min; Estimated Glomerular Filt Rate > 60; Glucose 91 mg/dL (65-110); Potassium 4.3 mmol/L (3.4-5.0); Sodium 138 mmol/L (137-145); Total Protein 6.6 g/dL (6.3-8.2)
--- OUTSIDE RECORDS SUMMARY | 2025-08-23 13:32 | XMS_ITS | Encounter Summary ---
Author Organization [facility] Address [address] [place] [address] Care Team Providers Care Shop Laborer Name Role Phone Osiris Cabrera [facility] Primary Care Provider + Encounter Details Date Type Department Care Team (Late st Contact Info) Description 01/15/2019 Abstract HEALTH INFO [facility] , Generic MD Femi Social History Tobacco Use Types Packs/Day Years Used Date Smoking Tobacco: Every Day Cigarettes Smokeless Tobacco: Never Alcohol Use Standard Drinks/Week Comments Yes 0 (1 standard drink = 0.6 oz pur e alcohol) Comments Unknown Sex and Gender Information Value Date Recorded Sex Assigned at Not on file Legal Sex Female 7:17 PM CDT Gender Identity Not on file Sexual Orientation Not on file documented as of this encounter Plan of Treatment Not on file documented as of this encounter Visit Diagnoses Not on filedocumented in this encounter Additional Health Concerns Infection Onset Date Last Indicated Resolved Time COVID-19 Rule Out 06/17/2020 06/17/2020 06/19/2020 7:30 AM CDT documented as of this encounter Care Teams Shop Laborer Relationship Specialty Start Date End Date Osiris Cabrera, [facility] [address] [facility], [address] [place] [id number] PCP - General NURSE PRACTITIONER 09/10/18 08/15/21 documented as of this encounter
--- OUTSIDE RECORDS SUMMARY | 2025-08-23 13:32 | XMS_ITS | Clinical Summary ---
Author Organization [facility] Address [address] [place] [address] Care Team Providers Care Soil Conservationist Name Role Phone Unavailable Primary Care Provider Unavailabl e Allergies Active Allergy Reactions Criticality Noted Date Comments Amoxicillin-Pot Clavulanate Shortness of Breath High 12/08/2020 Medications azithromycin (ZITHROMAX) 500 MG tablet Take 1 tablet (500 mg total) by mouth daily. 5 tablet 12/08/2020 Active LISINOPRIL 20 MG tabletIndications :Essential hypertension TAKE 1 TABLET BY MOUTH EVERY DAY 30 tablet 09/13/2021 Active Active Problems No known active problems Resolved Problems Problem Noted Date Diagnosed Date Resolved Date 07/10/2019 07/10/2019 Overview (07/10/2019): G2, P1 Immunizations Immunization Administration Dates Next Due Flucelvax 6 Months+ (Prefilled Syringe) 07/08/20 19,07/10/2018,07/01/2017 Influenza (Generic) 07/10/2016 Influenza Adult (Generic) 07/24/2017,07/05/2014, 06/17/2012 PFIZER COVID-19 (ORIGINAL FO RMULATION, PURPLE CAP) mRNA, LNP-S, PF, 30 MCG/0.3 ML DOSE 12/06/2020,11/15/2020 Pneumococcal (Pneumovax 23) 08/01/2020, 3 Tdap (Generic) 06/17/2012,1965 Family History Medical History Relation Comments Prostate Cancer Brother Diabetes Father Prostate Cancer Father Arthritis Sister Relation Status Comments Brother Father Sister Social History Tobacco Use Types Packs/Day Years Used Date Smoking Tobacco: Every Day Cigarettes Smokeless Tobacco: Never Alcohol Use Standard Drinks/Week Comments Yes 0 (1 standard drink = 0.6 oz pur e alcohol) occasionally PHQ-2 Answer Date Recorded PHQ-2 Score - If the patient scores above 3, please move on to questions 3-9 0 12/08/2020 Comments No Sex and Gender Information Value Date Recorded Sex Assigned at Not on file Legal Sex Female 7:17 PM CDT Gender Identity Not on file Sexual Orientation Not on file Last Filed Vital Signs Vital Sign Reading Time Taken Comments Blood Pressure 127/95 12/08/2020 1:00 PM CDT Pulse 94 12/08/2020 1:00 PM CDT Temperature 36.7 C (98 F) 12/08/2020 11:18 AM CDT Respiratory Rate 26 12/08/2020 1:00 PM CDT Oxygen Saturation 96% 12/08/2020 1:00 PM CDT Inhaled Oxygen Concentration - - Weight 61.2 kg (135 lb) 12/08/2020 11:18 AM CDT Height 157.5 cm (5' 2) 12/08/2020 11:18 AM CDT Body Mass Index 24.69 12/08/2020 11:18 AM CDT Plan of Treatment Health Maintenance Due Date Last Done Comments Cervical Cancer Screening Pap Smear (Age 30 to 64) Every 3 Years 1965 Annual Physical 1966 Hepatitis C 1981 Zoster Vaccines (1 of 2) 2013 DTaP, Tdap and Td Vaccines (2 - Td or Tdap) 06/17/2022 06/17/2012, 1965 Cervical Cancer Screening Pap with HPV Testing (Age 30 to 64) Every 5 Years 01/17/2024 01/16/2019 Cervical Cancer Screening with HPV 01/17/2024 Colorectal Cancer Screening Colonoscopy (10 Years) 08/24/2024 08/24/2014 COVID-19 Vaccine (3 - season) 2025 07/31/2023, 12/06/2020, 11/15/2020 Influenza Adult (#1) 2025 07/31/2023, 07/04/2022, 06/22/2021, Additional history exists Mammogram Screening 08/26/2025 08/26/2023, 8 RSV Immunization or 60+ Years (1 - 1-dose 75+ series) 2038 Pneumococcal Vaccine: 50+ Years Completed 04/12/2023, 08/01/2020, 1965 Hepatitis A Vaccines Aged Out No long er eligible based on patient's age to complete this topic Meningococcal B Vaccine Aged Out No l onger eligible based on patient's age to complete this topic Meningococcal Vaccine Aged Out No [place] eligible based on patient's age to complete this topic RSV Immunizations Under 20 Months Aged Out No longer eligible based on patient's age to complete this topic Procedures Procedure Name Priority Date/Time Associated Diagnosis Comments HPV MRNA E6/E7 Routine 01/16/2019 12:46 PM CDT MAMMOGRAM GENERIC (SCAN ORDER) 08/26/2018 COLONOSCOPY GENERIC (SCAN ORDER) Routine 08/24/2014 12:00 AM MAJOR ACCOUNT REPRESENTATIVE from Last 3 Months or Most Recently Relevant to Health Maintenance Results * HPV MRNA E6/E7 (01/16/2019 12:46 PM CDT) HPV MRNA E6/E7 Not Detected NOT DETECTED 01/19/2019 4:32 AM CDT [employer] AUGUSTINE JOHNSON Comment: This test was performed using the APTIMA(R) HPV Assay([employer]This assay detects E6/E7 viral messenger RNA (mRNA)from 14 high-risk HPV types (16,18,31,33,35,39,45,51,52,56,58,59,66,68).For additional information please refer to:http://education.[employer]/faq/ZMB082j5(This link is being provided for informational/educational purposes only.)The analytical performance characteristics of thisassay have been determined by [employer]. The modificationshave not been cleared or approved by the FDA. Thisassay has been validated pursuant to the CLIAregulations and is used for clinical purposes.Test Performed by Heide Rodriguez,[facility],[address] [place] [id number] Chao M.D., Ph.D., Director of [phone], [facility] [id number] FLUID SPECIMEN / Unknown 01/16/2019 12:46 PM CDT 01/16/2019 12:46 PM CDT us Generic Conversion Md [facility]/CYTOLOGY ERIKA [place] Final Result [facility] [address] [place] [address], [place] [phone] * MAMMOGRAM GENERIC (08/26/2018) Anatomical Region Laterality Modality Other 08/26/2018 Narrative 08/26/2018 Ordered by an unspecified provider. us Documents Scanned SCANNING Final Result * COLONOSCOPY (08/24/2014 12:00 AM MAJOR ACCOUNT REPRESENTATIVE) 08/24/2014 us Documents Scanned SCANNING Final Result Performing Organization Address City/[facility]/ZIP Co de Phone Number VIV GAYTAN from Last 3 Months or Most Recently Relevant to Health [place] [address] [employer]
--- OUTSIDE RECORDS SUMMARY | 2025-08-23 13:32 | XMS_ITS | Clinical Summary ---
Author Organization [facility] Address [address] [place] [address] Phone Care Team Providers Care Forensic Locksmith Name Role Phone Stewart Mello MD Primary Care Provider Epifanio Jiang MD Unavailable [phone] Leticia Hughes MD Unavailable [phone] Sudha Church MD Unavailable Jordon Stapleton MD Unavailable [phone] Leticia Shankar MD Unavailable [phone] Cherelle Houser MD Unavailable [phone] Allergies Active Allergy Reactions Criticality Noted Date Comments Amoxicillin-Pot Clavulanate Shortness of breath High 12/08/2020 Penicillins Anxiety,Hives,Itchin g,Eva rtness of breath High 05/24/2021 Medications loratadine (CLARITIN) 10 mg tabletIndicatio ns:Allergic Rhinitis Take 1 tablet (10 mg total) by mouth daily before breakfast Active lisinopriL (PRINIVIL,ZESTR IL) 20 mg tabletIndicatio ns:hypertension Take 1 tablet (20 mg total) by mouth daily before breakfast 90 tablet 3 4 Active tretinoin (RETIN-A) 0.025 % creamIndication s:Encounter for cosmetic procedure,Age-r elated facial wrinkles Apply topically nightly 40 g 3 5 Active Active Problems Problem Noted Date Diagnosed Date Smoking 12/31/2023 Personal history of radiation therapy 10/22/2023 Basal cell carcinoma (BCC) of skin of nose 04/26 Basal cell carcinoma of skin of nose 04/25/2023 Primary osteoarthritis of left knee 04/22/2023 Encounter for annual health examination 10/12/19 23 Acute medial meniscus tear of left knee 11/09/19 22 Overview (11/09/2021): Added automatically from request for surgery [id number] Assessment & Plan (02/13/2022 1:46 PM CDT): Acute condition postoperatively doing well continue follow-up with orthopedic Generalized abdominal pain 09/26/2021 Abdominal bloating 09/26/2021 Fibroids 09/26/2021 Vitamin D deficiency 07/24/2021 Assessment & Plan (02/13/2022 1:46 PM CDT): Chronic condition will order vitamin-D level in 6 months Assessment & Plan (08/14/2021 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 [employer]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[employer]ENCE): Chronic condition continue with vitamin-D supplement Benign essential HTN 07/24/2021 Assessment & Plan (02/13/2022 1:46 PM CDT): Chronic condition stable well controlled continue lisinopril 20 mg Assessment & Plan (08/14/2021 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 [employer] FAMILY [employer]ER [employer]ENCE): Chronic condition at goal continue with lisinopril 20 mg Allergic rhinitis, unspecified 06/10/2020 Overview (02/13/2022): Assessment & Plan (02/13/2022 1:46 PM CDT): Chronic condition stable well controlled continue loratadine Encounters Date Type Department Care Team Description 08/17/2025 3:42 PM TE[employer]ER OF FAMILY [employer]SUMER SCIENCE - 08/17/2025 11:59 PM TEACHER OF FAMILY AND CONSUMER SCIENCE Hospital Encounter [facility] [address] [place] [address] Discharge Disposition: Discharge to home or self care 08/17/2025 3:41 PM [employer] FAMILY [employer] - 08/17/2025 11:59 PM TEACHER OF FAMILY [employer]SUMER [employer]ENCE Hospital Encounter [facility]) [address] [place] [address] Discharge Disposition: Discharge to home or self care 08/17/2025 3:40 PM [employer] FAMILY [employer] - 08/17/2025 11:59 PM TE[employer]ER [employer] FAMILY [employer]SUMER [employer] Hospital Encounter [facility]) [address] [place] [address] Discharge Disposition: Discharge to home or self care 08/17/2025 3:37 PM [employer] FAMILY [employer] - 08/17/2025 11:59 PM TE[employer]ER [employer] FAMILY [employer]SUMER [employer]ENCE Hospital Encounter [facility] ([facility] [address] [place] [address] Discharge Disposition: Discharge to home or self care 08/17/2025 3:37 PM [employer] FAMILY [employer] - 08/17/2025 11:59 PM TE[employer]ER [employer] FAMILY [employer] CONSUMER [employer]ENCE Hospital Encounter [facility] ([facility]) [address] [place] [address] Discharge Disposition: Discharge to home or self care 08/17/2025 3:36 PM [employer] FAMILY [employer]ENCE - 08/17/2025 11:59 PM TE[employer]ER [employer] FAMILY [employer]SUMER [employer]ENCE Hospital Encounter [facility] ([facility]) [address] [place] [address] Discharge Disposition: Discharge to home or self care 08/17/2025 3:34 PM TE[employer] FAMILY [employer] - 08/17/2025 11:59 PM TE[employer]ER [employer] FAMILY [employer]SUMER [employer] Hospital Encounter [facility]) [address] [place] [address] Discharge Disposition: Discharge to home or self care 08/17/2025 3:33 PM [employer] FAMILY [employer] - 08/17/2025 11:59 PM TE[employer]ER [employer] FAMILY [employer]SUMER [employer]ENCE Hospital Encounter [facility]) [address] [place] [address] Discharge Disposition: Discharge to home or self care 08/04/2025 Telephone [facility] Medicine at [address] [place] [address] Stewart Mello MD Medical Question/Miscellaneou s 07/28/2025 Telephone [facility] Medicine at [address] [place] [address] Stewart Mello MD Recommendation Request 07/20/2025 Telephone [facility] Medicine at [address] [place] [address] Stewart eMllo MD Additional Services Or Orders 07/13/2025 Telephone [facility] at [address] [place] [address] Stewart Mello MD Medical Question/Miscellaneou s 07/08/2025 9:40 AM CDT Office Visit [facility] Medicine ENT [address] [facility] [address] [place] [address] Sudha Church MD Basal cell carcinoma of skin of nose (Primary Dx); Encounter for cosmetic procedure; Age-related facial wrinkles 07/07/2025 11:20 AM CDT Office Visit [facility] [place] [place] Otolaryngology Head-Neck Division [facility] Floor [address] [place] [phone] Sharon Yanez PA Basal cell carcinoma of skin of nose (Primary Dx) 07/01/2025 Telephone [facility] [place] [place] Otolaryngology [facility] [place] [address] Angie Hinds MS from Last 3 Months Immunizations Immunization Administration Dates Next Due COVID-19 mRNA (PFIZER) 0.3 m L (3 mcg) vaccine (6 months-4 years) 07/31/2023 COVID-19 mRNA (PFIZER) 0.3 m L (30 mcg) vaccine (12 years and up) 07/04/2025 Influenza, Quadrivalent, Merari l Culture-based MDCK, Preservative Free, Antibiotic Free, Intramuscular 07/08/2019,07/10/2018,07/01/2017 Influenza, Quadrivalent, Spl it, Intramuscular 06/19/2024(Deferred: Patient decision),07/10/2016 Influenza, Quadrivalent, Spl it, Preservative Free, Intramuscular 07/04/2022 Influenza, Trivalent, IM (MDV) 5,07/05/2014,07/06/2013,06/17 Influenza, Trivalent, Preser vative Free, Intramuscular 07/04/2025 Influenza, Unspecified 07/31/2023,2020,07/08/2019,07/10,07/24/2017,07/01/2017,07/10/2016 ,07/05/2014,06/17/2012 Pneumococcal Conjugate Pcv20 04/12/2023 Pneumococcal Polysaccharide PPV23 08/01/2020,08/1963 Tdap 06/17/2012,1963 Surgical History Surgery Date Site/Laterality Comments ENDOMETRIAL ABLATION 09/23/2012 - 09/22/2013 endometrial BUNIONECTOMY 09/23/2012 - 09/22/2013 Right APPENDECTOMY TONSILLECTOMY/ADENOIDECTOMY 09/23/1972 - 09/22/1973 MENISCUS SURGERY 09/23/2020 - 09/22/2021 RHINECTOMY 06/03/2023 Left Partial COLONOSCOPY 09/23/2017 - 09/22/2018 UPPER GASTROINTESTINAL ENDOSCOPY 09/23/2017 - 09/22/2018 [facility] 09/23/2019 - 09/22/2020 Left Left nose & scalp BCC RECONSTRUCTION MID-FACE 06/10/2023 Medical History Medical History Date Comments Hypertension Dxd 2019 Vallecillo cyst, left left knee GERD (gastroesophageal reflux disease) Last menstrual period (LMP) > 10 days ago none since endometrial ablation Allergic rhinitis Basal cell carcinoma (BCC) BCC s calp & left nose s/p MOHS 2019 with recurrence left nose s/p partial rhinectomy 06/03/2023 Smoker Pt currently try ing to quit smoking using nicorette gum Family History Medical History Relation Name Comments Colon cancer Father Sedgie Diabetes Father Sedgie Heart attack Father Sedgie Hypertension Father Sedgie Diabetes Mother Amber Hypertension Mother Amber No Known Problems Son Anesthesia problems Neg Hx Breast cancer Neg Hx Malig Hypertension Neg Hx Malig Hyperthermia Neg Hx Ovarian cancer Neg Hx Pseudochol deficiency Neg Hx Relation Name Status Comments Brother Alive Father Chirag Mother mAber Alive Sister 1 Alive Sister 2 Alive Sister 3 Alive Sister 4 Alive Son Alive Social History Tobacco Use Types Packs/Day Years Used Date Smoking Tobacco: Former Cigarettes 0.3 21.9 1 09/23/2000 - 06/20/2023 Smokeless Tobacco: Never Tobacco Cessation:Counseling Given: Not Answered AUDIT-C Answer Date Recorded Q1: How often do you have a drink containing alc ohol? Monthly or less 10/19/2024 Q2: How many drinks containi ng alcohol do you have on a typical day when you are drinking? 1 or 2 10/19/2024 Q3: How often do you have si x or more drinks on one occasion? Less than monthly 10/19/2024 PHQ-2 Answer Date Recorded PHQ-2 Total Score (If total score is 3 or more points, staff should administer the PHQ-9) 0 10/19/2024 PHQ-9 Answer Date Recorded PHQ-9 Total Score 0 10/19/2024 Personal Safety Answer Date Recorded Have you ever been in or are you currently in a harmful physical or emotional relationship or is someone making you feel afraid or unsafe? Denies 07/15/2023 Comments No Sex and Gender Information Value Date Recorded Sex Assigned at Not on file Legal Sex Female 8:50 PM TE[employer]ER [employer] FAMILY [employer]ER [employer]ENCE Gender Identity Female 08/12/2021 12:47 PM [employer] FAMILY [employer] Sexual Orientation Not on file Obstetrics History Para Term AB IAB SAB Ectopic Multiple Livin g Live Births 2 1 1 1 Date Outcome GA Total Labor Labor/2nd/3rd Weight Sex Type Anes PTL Carrie A1 A5 Name Clin Term Last Filed Vital Signs Vital Sign Reading Time Taken Comments Blood Pressure 135/88 02/11/2025 12:56 PM CDT Pulse 93 02/11/2025 12:56 PM CDT Temperature 36.3 C (97.4 F) 10/19/2024 11:18 AM TE[employer]ER [employer] FAMILY [employer]ER [employer]ENCE Respiratory Rate 16 10/19/2024 11:1 8 AM TE[employer]ER [employer] FAMILY [employer]SUMER [employer]ENCE Oxygen Saturation 97% 10/19/2024 11: 18 AM TEACHER [employer] FAMILY [employer] CONSUMER SCIENCE Inhaled Oxygen Concentration - - Weight 60.2 kg (132 lb 12.8 oz) 10/15/2 025 11:25 AM CDT Height 157.5 cm (5' 2) 10/19/2024 11:1 8 AM TE[employer] FAMILY [employer]SUMER [employer]ENCE Body Mass Index 24.29 10/19/2024 11:18 AM TE[employer]ER [employer] FAMILY [employer]SUMER [employer]ENCE Plan of Treatment Health Maintenance Due Date Last Done Comments Cervical Cancer Screening 1965 Hepatitis B Screening 1981 DTaP/Tdap/Td Vaccine (2 - Td or Tdap) 06/17/2022 06/17/2012, 1965 Zoster Vaccine (2 of 2) 12/17/2023 10/22/2023 Breast Cancer Screening-Mammogram 08/26/2024 08/26/2023, 01/08/2022, 08/26/2018 Colon Cancer Screening-Colonoscopy 10/19/2024 10/19/2021 Depression Screening 10/19/2025 10/19/2024, 10/19/2024, 10/17/2023, Additional history exists Regular Well Visit/Exam 18-64 10/19/2025 10/19/2024, 10/17/2023, 10/12/2022, Additional history exists Colon Cancer Screening-CT Colonography Discontinued 10/19/2021 Colon Cancer Screening-DNA Stool Discontinued 10/19/2021 Colon Cancer Screening-FIT Discontinued 10/19/2021 Colon Cancer Screening-Sigmoidoscopy Discontinued 10/19/2021 Pneumococcal vaccine <65 Aged Out 023, 08/01/2020, 1965 No longer eligible based on patient's age to complete this topic Hepatitis C Screening Completed 04/13/2024 Covid-19 Vaccine Completed 07/04/2025, 11/2023, 07/31/2023, Additional history exists Influenza Vaccine Completed 07/04/2025, , 07/31/2023, Additional history exists Procedures Procedure Name Priority Date/Time Associated Diagnosis Comments NEURO CT OUTSIDE REFERENCE Routine 08/17/2025 3:42 PM TE[employer]ER [employer] FAMILY [employer]SUMER [employer] NEURO CT OUTSIDE REFERENCE Routine 08/17/2025 3:41 PM TE[employer]ER [employer] FAMILY [employer]SUMER [employer]ENCE NEURO MR OUTSIDE REFERENCE Routine 08/17/2025 3:40 PM TE[employer] FAMILY AND CONSUMER [employer] NEURO CT OUTSIDE REFERENCE Routine 08/17/2025 3:37 PM TEACHER OF FAMILY AND CONSUMER SCIENCE NEURO CT OUTSIDE REFERENCE Routine 08/17/2025 3:37 PM TE[employer]ER OF FAMILY AND CONSUMER SCIENCE NEURO CT OUTSIDE REFERENCE Routine 08/17/2025 3:36 PM TEACHER OF FAMILY AND CONSUMER SCIENCE NEURO CT OUTSIDE REFERENCE Routine 08/17/2025 3:34 PM TE[employer]ER [employer] FAMILY AND CONSUMER SCIENCE NEURO CT OUTSIDE REFERENCE Routine 08/17/2025 3:33 PM [employer] FAMILY [employer]ER [employer]ENCE HEPATITIS C ANTIBODY Routine 04/13/2024 8:54 AM CDT Need for hepatitis C screening test SCREENING MAMMOGRAM BILATERAL W ABA Schedule Routine, Read Routine (OP Routine) 08/26/2023 12:24 PM TE[employer]ILY [employer] Screening mammogram, encounter for COLONOSCOPY Routine 10/19/2021 from Last 3 Months or Most Recently Relevant to Health Maintenance Results * Neuro CT Outside Reference (08/17/2025 3:42 PM TEACHER [employer] FAMILY [employer]SUMER SCIENCE) Impressions [facility] - 08/17/2025 3:42 PM TE[employer]ER [employer] FAMILY [employer] CONSUMER SCIENCE These images are for Reference purposes only and have not been reviewed by [facility]. There will be no report generated by a [facility]. Narrative [facility] - 08/17/2025 3:42 PM TE[employer] FAMILY [employer]SUMER [employer]ENCE EXAMINATION: Images For Reference Purposes Only Rajat Boss MD IMG CT PROCEDURES Final Re sult [facility] * Neuro CT Outside Reference (08/17/2025 3:41 PM TEACHER OF FAMILY [employer]SUMER SCIENCE) Impressions [facility] - 08/17/2025 3:41 PM TE[employer]ER OF FAMILY AND CONSUMER SCIENCE These images are for Reference purposes only and have not been reviewed by [facility]. There will be no report generated by a [facility]iologist. Narrative [facility] - 08/17/2025 3:41 PM TE[employer]ER [employer] FAMILY [employer] CONSUMER SCIENCE EXAMINATION: Images For Reference Purposes Only Rajat Boss MD IMG CT PROCEDURES Final Re sult Performing Organization Address [facility] de Phone Number [email or web address] * Neuro MR Outside Reference (08/17/2025 3:40 PM TEACHER OF FAMILY [employer] CONSUMER SCIENCE) Impressions [facility] - 08/17/2025 3:40 PM TE[employer] FAMILY [employer]SUMER SCIENCE These images are for Reference purposes only and have not been reviewed by [facility]. There will be no report generated by a [facility]iologist. Narrative [facility] - 08/17/2025 3:40 PM TE[employer]ER [employer] FAMILY [employer]SUMER SCIENCE EXAMINATION: Images For Reference Purposes Only Rajat Boss MD IMG MRI PROCEDURES Final R esult Performing Organization Address [facility] de Phone Number [email or web address] * Neuro CT Outside Reference (08/17/2025 3:37 PM TEACHER [employer] FAMILY [employer]SUMER SCIENCE) Impressions [facility] - 08/17/2025 3:37 PM TE[employer]ER [employer] FAMILY [employer] CONSUMER SCIENCE These images are for Reference purposes only and have not been reviewed by [facility]. There will be no report generated by a [facility]iologist. Narrative [facility] - 08/17/2025 3:37 PM TE[employer] FAMILY [employer]SUMER [employer]ENCE EXAMINATION: Images For Reference Purposes Only Rajat Boss MD IMG CT PROCEDURES Final Re sult Performing Organization Address [facility] de Phone Number [email or web address] * Neuro CT Outside Reference (08/17/2025 3:37 PM TEACHER OF FAMILY [employer] CONSUMER SCIENCE) Impressions [facility] - 08/17/2025 3:37 PM TE[employer]ER OF FAMILY AND CONSUMER SCIENCE These images are for Reference purposes only and have not been reviewed by [facility]. There will be no report generated by a [facility]. Narrative [facility] - 08/17/2025 3:37 PM TE[employer]ER [employer] FAMILY [employer]SUMER SCIENCE EXAMINATION: Images For Reference Purposes Only us Rajat Boss MD IMG CT PROCEDURES Final Re sult Performing Organization Address [facility] de Phone Number [facility] * Neuro CT Outside Reference (08/17/2025 3:36 PM TEACHER [employer] FAMILY [employer] CONSUMER SCIENCE) Impressions [facility] - 08/17/2025 3:36 PM TE[employer] FAMILY AND CONSUMER SCIENCE These images are for Reference purposes only and have not been reviewed by [facility]. There will be no report generated by a [facility]iologist. Narrative [facility] - 08/17/2025 3:36 PM TEACHER [employer] FAMILY [employer] CONSUMER SCIENCE EXAMINATION: Images For Reference Purposes Only Result [facility] Rajat Boss MD IMG CT PROCEDURES Final Re sult Performing Organization Address [facility] de Phone Number [facility] * Neuro CT Outside Reference (08/17/2025 3:34 PM TEACHER OF FAMILY AND CONSUMER SCIENCE) Impressions [facility] - 08/17/2025 3:34 PM TE[employer]ER [employer] FAMILY AND CONSUMER SCIENCE These images are for Reference purposes only and have not been reviewed by [facility]. There will be no report generated by a [facility]. Narrative [facility] - 08/17/2025 3:34 PM TEACHER [employer] FAMILY [employer] CONSUMER SCIENCE EXAMINATION: Images For Reference Purposes Only Result [facility] Rajat Boss MD IMG CT PROCEDURES Final Re sult Performing Organization Address [facility] de Phone Number [facility] * Neuro CT Outside Reference (08/17/2025 3:33 PM TEACHER OF FAMILY [employer] CONSUMER SCIENCE) Impressions [facility] - 08/17/2025 3:33 PM TE[employer]ER OF FAMILY AND CONSUMER SCIENCE These images are for Reference purposes only and have not been reviewed by [facility]. There will be no report generated by a [facility]. Narrative [facility] - 08/17/2025 3:33 PM TE[employer]ER [employer] FAMILY [employer] CONSUMER SCIENCE EXAMINATION: Images For Reference Purposes Only Result [facility] Rajat Boss MD IMG CT PROCEDURES Final Re sult Performing Organization Address City/[facility]/ZIP Co de Phone Number [email or web address] * Hepatitis C antibody Blood (04/13/2024 8:54 AM CDT) Hep C Ab Non Reactive Non Reactive [facility] - 01 Comment: HCV antibody alone does not differentiate between previously resolved infection and active infection. Equivocal and Reactive HCV antibody results should be followed up with an HCV RNA test to support the diagnosis of active HCV infection. Blood 04/13/2024 8:54 AM CDT 04/13/2024 Narrative [facility] - 04/14/2024 8:17 AM CDT Performed at: [address] [place] [address] [id number] Design Printing Machine Setter: Titi Duong PhD, Phone: [phone] us Stewart Mello MD LAB MICROBIOLOGY - GENERAL ORDER CECIL Final Result Performing Organization Address City/[facility] Co de Phone Number [facility]CO [facility] - 01 * Screening Mammogram Bilateral W Aba (08/26/2023 12:24 PM TE[employer]ER [employer] FAMILY [employer]ER SCIENCE) Anatomical Region Laterality Modality Breast Bilateral Mammography Impressions 08/26/2023 2:26 PM TE[employer] FAMILY [employer]SUMER SCIENCE BI-RADS ATLAS category (overall): 1 - Negative There is no mammographic evidence of malignancy. A 1 year screening mammogram is recommended. The patient has been or will be contacted. We recommend annual screening mammography for women at average risk of breast cancer beginning at age 40, based on guidelines of the [employer] (ACR Practice Parameter for the Performance of Screening and Diagnostic Mammography) and [employer]. For women with and elevated risk of breast cancer, please refer to the ACR Practice Parameter for specific screening recommendations. The patient will be entered into a reminder system with a target due date of 1 year for her next screening exam. Narrative 08/26/2023 2:26 PM TE[employer]ILY [employer]ER [employer]ENCE Screening Mammogram Bilateral W Aba: 08/26/23 The study was acquired using full field digital technology and interpreted from soft copy. 2D digital mammographic views, as well as 3D digital tomosynthesis were performed in the CC and MLO projections. CLINICAL: Screening mammogram, encounter for. No relevant medical history has been documented for this patient. History of breast cancer in Neg Hx. COMPARISONS: 01/08/2022 SCREENING MAMMOGRAM BILATERAL W ABA 10/06/2012 Breast Imaging Screening Outside Reference BREAST TISSUE: The breasts are heterogeneously dense, which may obscure small masses. FINDINGS: There is no new suspicious finding in either breast on mammogram. Stewart Mello MD IMG MAMMO PROCEDURES Final Resul t * Colonoscopy (10/19/2021) Anatomical Region Laterality Modality Other Historical Provider ENDOSCOPY PROCEDURES Vonda l Result from Last 3 Months or Most Recently Relevant to Health Maintenance Insurance [facility] Care Teams Forensic Locksmith Relationship Specialty Start Date End Date Stewart Mello MD PCP - General Family Medicine 10/12/22 Epifanio Jiang MD [address] [facility] [address] [address] Consulting Physician Orthopedic Surgery 04/12/23 Leticia Hughes MD [facility] [place] [address] Referring Physician Dermatology 04/25/23 Sudha Church MD [address] [place] [address] Surgeon Otolaryngology 04/25/23 Jordon Stapleton MD [address] [place] [address] Surgeon Otolaryngology 07/29/23 Leticia Shankar MD [address] [facility] [address] [place] [address] Radiation Oncologist Radiation Oncology 11/19/23 Cherelle Houser MD [address] [facility] [address] [facility] [address] [place] [address] Consulting Physician Gastroenterology 11/18/24
--- OUTSIDE RECORDS SUMMARY | 2025-08-23 13:32 | XMS_ITS ---
Author Organization [facility] Address [address] [place] [address] Phone Care Team Providers Care Research Fellow Name Role Phone Stewart Mello MD Primary Care Provider Epifanio Jiang MD Unavailable Leticia Hughes MD Unavailable Sudha Church MD Unavailable [phone] Jordon Stapleton MD Unavailable Leticia Shankar MD Unavailable [phone] Cherelle Houser MD Unavailable [phone] Active Problems Problem Noted Date Diagnosed Date Smoking 12/31/2023 Personal history of radiation therapy 10/22/2023 Basal cell carcinoma (BCC) of skin of nose 04/26 Basal cell carcinoma of skin of nose 04/25/2023 Primary osteoarthritis of left knee 04/22/2023 Encounter for annual health examination 10/12/19 23 Acute medial meniscus tear of left knee 11/09/19 22 Overview (11/09/2021): Added automatically from request for surgery [id number] Assessment & Plan (02/13/2022 1:46 PM CDT): Acute condition postoperatively doing well continue follow-up with orthopedic Generalized abdominal pain 09/26/2021 Abdominal bloating 09/26/2021 Fibroids 09/26/2021 Vitamin D deficiency 07/24/2021 Assessment & Plan (02/13/2022 1:46 PM CDT): Chronic condition will order vitamin-D level in 6 months Assessment & Plan (08/14/2021 11:20 AM FOOD PROCESSING CHEMIST): Chronic condition continue with vitamin-D supplement Benign essential HTN 07/24/2021 Assessment & Plan (02/13/2022 1:46 PM CDT): Chronic condition stable well controlled continue lisinopril 20 mg Assessment & Plan (08/14/2021 11:20 AM FOOD PROCESSING CHEMIST): Chronic condition at goal continue with lisinopril 20 mg Allergic rhinitis, unspecified 06/10/2020 Overview (02/13/2022): Assessment & Plan (02/13/2022 1:46 PM CDT): Chronic condition stable well controlled continue loratadine Current Treatment and Therapy Plans No current plan information found. Past Treatment and Therapy Plans No past plan information found. Radiation Treatments * Course [id number]_NOSE_202208/06/2023 - 01/14/2024 Treatment Period Energy Fraction Dose Fractions Total Dose Plans Planned LT NOSE 08/06/2023 - 01/14/2024 200 30 / 6,000 Reference Points Delivered LT NOSE 08/06/2023 - 01/14/2024 6,000 Lifetime Dose Tracking * Chemical Lifetime Dose Automatic Entry Manual Entr y DLP 333 mGycm 333 mGycm 0 mGycm
--- OUTSIDE RECORDS SUMMARY | 2025-08-23 13:32 | XMS_ITS | Clinical Summary ---
Author Organization [facility] Address [address] [place] [id number] Phone [email or web address] Care Team Providers Care Reference Test Clerk Name Role Phone Unavailable Primary Care Provider Unavailabl e Allergies Active Allergy Reactions Criticality Noted Date Comments Amoxicillin-Pot Clavulanate Shortness of breath High 12/08/2020 Penicillins Anxiety,Hives,Itchin g,Eva rtness of breath High 05/24/2021 Medications loratadine (CLARITIN) 10 MG tablet Take 10 mg by mouth once daily as needed. 11/22/2019 Active lisinopril (ZESTRIL) 20 MG tabletIndication s:Benign essential HTN Take 1 tablet (20 mg total) by mouth 1 (one) time each day. 90 tablet 08/29/2021 Active Active Problems Problem Noted Date Diagnosed Date Benign essential HTN 07/24/2021 Overview (08/29/2021): Last Assessment & Plan: Chronic condition at goal continue with lisinopril 20 mg Vitamin D deficiency 07/24/2021 Overview (08/29/2021): Last Assessment & Plan: Chronic condition continue with vitamin-D supplement Allergic rhinitis, unspecified 06/10/2020 Overview (07/04/2021): Immunizations Immunization Administration Dates Next Due COVID-19 (Pfizer [place] 12 yrs +) (CVX-208) 12/06/2020,11/15/2020 Influenza (Afluria Fluzone) quad (CVX-158) 07/10/2016 Influenza multi-dose VIAL (Afluria,Fluzone) trivalent (CVX-141) 07/04/2015,07/05/2014,07/06/2013,06/17 Influenza, (Afluria Fluarix Flulaval Fluzone) quad, PF (CVX-150) 07/04/2022 Influenza, unspecified (CVX-88) 06/22/20 21,07/08/2019,07/10/2018,07/24,07/01/2017,07/10/2016,07/05/2014 ,06/17/2012 Pneumococcal (Pneumovax 23) Polysaccharide PPV23 (CVX-33) 08/01/2020,1963 Tdap (ADACEL BOOSTRIX) (CVX-115) 06/17/2012,04/23 Family History Medical History Relation Name Comments Colon cancer Father Hypertension Father Relation Name Status Comments Father Social History Tobacco Use Types Packs/Day Years Used Date Smoking Tobacco: Every Day Cigarettes Smokeless Tobacco: Never Alcohol Use Standard Drinks/Week Comments Yes 8 (1 standard drink = 0.6 oz pur e alcohol) Intimate Partner Violence Answer Date R ecorded Insults You Not on file 07/07/2021 Threatens You Not on file 07/07/2021 Screams at You Not on file 07/07/2021 Physically Hurt Not on file 07/07/2021 Intimate Partner Violence Score Not on file 07/07/2021 Alcohol Use Answer Date Recorded Alcohol Use Status Yes 08/29/2021 Stress Answer Date Recorded Stress in your Life Not on file 07/29/2024 Dealing with Stress 3 07/29/2024 Comments Unknown Sex and Gender Information Value Date Recorded Sex Assigned at Not on file Legal Sex Female 10:46 AM CDT Gender Identity Not on file Sexual Orientation Not on file Last Filed Vital Signs Vital Sign Reading Time Taken Comments Blood Pressure 118/78 08/29/2021 8:54 AM RN INTERN Pulse 71 08/29/2021 8:54 AM RN INTERN Temperature 36.8 C (98.3 F) 08/29/2021 8:54 AM RN INTERN Respiratory Rate 20 08/29/2021 8:54 AM RN INTERN Oxygen Saturation 98% 08/29/2021 8:54 AM RN INTERN Inhaled Oxygen Concentration - - Weight 65.6 kg (144 lb 9.6 oz) 08/29/2021 8:54 A M RN INTERN Height 157.5 cm (5' 2) 08/29/2021 8:54 AM RN INTERN Body Mass Index 26.45 08/29/2021 8:54 AM RN INTERN Plan of Treatment Health Maintenance Due Date Last Done Comments CT Colonography 1963 Cervical Cancer Screening Combo 1963 Colonoscopy 1963 Colorectal Cancer Screening Combo 1963 DNA Cologuard 1963 Dental Cleaning/Exam 1963 FIT or FOBT Test 1963 HIV Screening 1963 HPV only / HPV + Pap 1963 Hepatitis C Screening 1963 Pap only testing 1963 Sigmoidoscopy 1963 Annual Preventive Exam 1981 Hep B Infection Screening - Triple Screen 1981 Breast Cancer Screening 1993 Zoster Immunization (1 of 2) 2013 Pneumococcal: 50+ Years (2 of 2 - PCV) 08/01/2021 08/01/2020, 1963 Tetanus Diphtheria and Pertussis Immunization (2 - Td or Tdap) 06/17/2022 06/17/2012, 1963 Covid-19 Immunization (3 - season) 2025 12/06/2020, 11/15/2020 Influenza Immunization (#1) 05/24/202506/23, 06/22/2021, 07/08/2019, Additional history exists Pneumococcal Immunization Discontinued 08/01/2020, 08/1963 HIB Immunization Aged Out No longer e ligible based on patient's age to complete this topic HPV Immunization Aged Out No longer e ligible based on patient's age to complete this topic Hepatitis A Immunization Aged Out No longer eligible based on patient's age to complete this topic Hepatitis B Immunization Aged Out No longer eligible based on patient's age to complete this topic Polio Immunization Aged Out No longer eligible based on patient's age to complete this topic Insurance [employer] NO COPAY NB
--- OUTSIDE RECORDS SUMMARY | 2025-08-23 13:32 | XMS_ITS | Encounter Summary ---
Author Organization [facility] Address [address] [place] [address] Care Team Providers Care Packing Machine Inspector Name Role Phone Stewart Mello MD Primary Care Provider Epifanio Jiang MD Unavailable Leticia Hughes MD Unavailable [phone] Sudha Church MD Unavailable Jordon Stapleton MD Unavailable Leticia Shankar MD Unavailable [phone] Cherelle Houser MD Unavailable [phone] Reason for Visit * Reason Onset Date Comments Medical Question/Miscellaneous 08/04/2025 Encounter Details Date Type Department Care Team (Late st Contact Info) Description 08/04/2025 Telephone [facility] Family Medicine at [address] [address] Stewart Mello MD [address] [place] [address] Medical Question/Miscellaneous Social History Tobacco Use Types Packs/Day Years Used Date Smoking Tobacco: Former Cigarettes 0.3 21.9 1 09/23/2000 - 06/20/2023 Smokeless Tobacco: Never AUDIT-C Answer Date Recorded Q1: How often [...] on file Legal Sex Female 8:50 PM SENIOR WEB ANALYST Gender Identity Female 08/12/2021 12:47 PM SENIOR WEB ANALYST Sexual Orientation Not on file documented as of this encounter Miscellaneous Notes * Telephone Encounter - Patricia Major - 08/11/2025 7:57 AM CST Lvm for Rosa that Neurology referral was changed to [facility], they are on [facility] as well, but I went ahead and faxed the order to . OR WEB ANALYST * Telephone Encounter - Jerrica Jorgensen - 08/04/2025 11:55 AM CST Medical Question/Miscellaneous Caller???s Concern: Rosa with [facility] states that Patient was Referred to Dr. Hobbs in [place], and they can't get her in [facility] 11-25-2025. Will you send her Referral in to [facility], they can get her in, within the next 2 weeks? . Does message need to be routed? Yes-Action Needed OR WEB ANALYST documented in this encounter Plan of Treatment Not on file documented as of this encounter Visit Diagnoses Not on filedocumented in this encounter Care Teams Packing Machine Inspector Relationship Specialty Start Date End Date Stewart Mello MD PCP - General Family Medicine 10/12/22 Epifanio Jiang MD [address] [address] Consulting Physician Orthopedic Surgery 04/12/23 Leticia Hughes MD [address] [place] [address] Referring Physician Dermatology 04/25/23 Sudha Church MD [address] [place] [address] Surgeon Otolaryngology 04/25/23 Jordon Stapleton MD [address] [place] [address] Surgeon Otolaryngology 07/29/23 Leticia Shankar MD [address] [address] Radiation Oncologist Radiation Oncology 11/19/23 Cherelle Houser MD [address] [facility] [address] [place] [address] Consulting Physician Gastroenterology 11/18/24 documented as of this encounter
--- OUTSIDE RECORDS SUMMARY | 2025-08-23 13:32 | XMS_ITS | Clinical Summary ---
Author Organization [facility] Address [address] [place] [address] Care Team Providers Care Debug Technician Name Role Phone Unavailable Primary Care Provider Unavailabl e Source Comments [facility],non-owned Affiliates and Associated Physician Practices is amultiple site organization consisting of ambulatory clinics and hospital sitesin [place], [place], [place] and [place]. This disclosure is being madepursuant to the Care Everywhere program and may not contain all information available regarding this patient. Last updated 18.[facility] Allergies No known active allergies Medications * Be aware that medications may not be up to date on this document. Alwaysverify current medications with the patient. lisinopril (PRINIVIL; ZESTRIL) 10 MG tablet Take 10 mg by mouth once daily Active Active Problems No known active problems Social History Tobacco Use Types Packs/Day Years Used Date Smoking Tobacco: Every Day Cigarettes Smokeless Tobacco: Never Alcohol Use Standard Drinks/Week Comments Yes 0 (1 standard drink = 0.6 oz pur e alcohol) Comments Unknown Sex and Gender Information Value Date Recorded Sex Assigned at Not on file Legal Sex Female 3:13 PM CDT Gender Identity Not on file Sexual Orientation Not on file Last Filed Vital Signs Vital Sign Reading Time Taken Comments Blood Pressure 144/96 05/17/2020 9:49 AM CDT Pulse 82 05/17/2020 9:49 AM CDT Temperature - - Respiratory Rate - - Oxygen Saturation - - Inhaled Oxygen Concentration - - Weight 63.5 kg (140 lb) 05/17/2020 7:20 AM CDT Height 157.5 cm (5' 2) 05/17/2020 7:20 AM CDT Body Mass Index 25.61 05/17/2020 7:20 AM CDT Plan of Treatment Health Maintenance Due Date Last Done Comments COLOGUARD (AGES 45-75) - COLON CA SCREENING 1963 CT COLONOGRAPHY - COLON CA SCREENING 1963 FIT - COLON CA SCREENING 1963 FLEX SIG - COLON CA SCREENING 1963 LIPID TESTING 1963 HIV SCREENING 1978 HEPATITIS C SCREENING 04/29/1981 DTAP/TDAP/TD VACCINES (1 - Tdap) 1982 PNEUMOCOCCAL VACCINE 50+ (1 of 2 - PCV) 1982 Cervical Cancer Screening 1984 PAP SMEAR 1984 PAP with HPV 1993 ZOSTER VACCINE (1 of 2) 2013 SCREENING FOR DIABETES 07/07/2020 DEPRESSION SCREENING 09/23/2024 COVID-19 VACCINE ( season) 2025 12/06/2020, 11/15/2020 MAMMOGRAM 08/26/2025 08/26/2023, 1212/2022, 01/08/2022, Additional history exists COLON MONITORING 10/19/2031 10/19/2021 COLONOSCOPY - COLON CA SCREENING 10/19/2031 10/19/2021 Colorectal Cancer Screening 10/19/2031 Respiratory Syncytial Virus (RSV) Vaccine Pt: or over 60 yrs (1 - 1-dose 75+ series) 2038 INFLUENZA VACCINE Completed 07/04/2025, , 07/04/2022, Additional history exists HEPATITIS B VACCINE Aged Out No longe r eligible based on patient's age to complete this topic HIB VACCINE Aged Out No longer eligi ble based on patient's age to complete this topic HPV VACCINE Aged Out No longer eligi ble based on patient's age to complete this topic MENINGOCOCCAL (Group B) VACCINE SHARED DECISION-MAKING Aged Out No longer eligible based on patient's age to complete this topic MENINGOCOCCAL GROUPS A/C/Y/W VACCINE Aged Out No longer eligible based on patient's age to complete [place] [address] [facility] Member Subscriber Plan / Payer (Ef fective 2014-Present) Name:ImerCandido vieira Relation to Subscriber:Self Name:JAZMINESUZANManny Payer ID:[id number] (NAIC) Group ID:Not on file Type:PPO Address: [address] CARE Member Subscriber Plan / Payer (Ef fective 2014-Present) Name:ImerCandido vieira Relation to Subscriber:Self Name:IMERBIBIRACHELECANDIDO Payer ID:[id number] (NAIC) Group ID:Not on file Type:PPO Address: [address] [facility] Member Subscriber Plan / Payer (Ef fective 2014-Present) Name:ImerCandido vieira Relation to Subscriber:Self Name:IMERCANDIDO VIEIRA Payer ID:[id number] (NAIC) Type:PPO Address: [address] [facility] Member Subscriber Plan / Payer (Ef fective 2014-Present) Name:Candido Lucero Relation to Subscriber:Self Name:CANDIDO LUCERO Payer ID:[id number] (NAIC) Type:PPO Address: [place] [phone]
[2025-08-23] MEDS: SODIUM CHLORIDE 0.9% IV 1,000 ML 999 ML IV CONT (13:38)
[2025-08-23 15:30] LABS: Add Urine Microscopic? YES; Appearance Urine Cloudy (Clear); Glucose Urine UA Negative (Negative); Leukocyte Esterase Ur 2+ LEU/UL (Negative); Need Manual Microscopic Reviewed; Nitrate Urine Negative (Negative); Specific Grav Ur 1.020 (1.001-1.035)
[2025-08-23] MEDS: NITROFURANTOIN MONOHYD MACROCR 100 MG CAP PO (16:37)
== END 2025-08-23 19:39 ==
PROVIDERS: Emergency Medicine; Emergency Provider Student in an Organized Health Care Education/Training Program; PCP Internal Medicine
DX: T83.511A Infection and inflammatory reaction due to indwelling urethral catheter, initial encounter (principal); R41.82 Altered mental status, unspecified; I69.951 Hemiplegia and hemiparesis following unspecified cerebrovascular disease affecting right dominant side; I10 Essential (primary) hypertension
CPT/HCPCS: 36415; 51702; 70450; 80053; 80177; 81001; 83605; 85025; 85610; 85730; 87086; 87186; 93005; 96360; 99284; A9270; J7030